=== PATIENT | male | born 1955 | race Caucasian/White ===

== ENCOUNTER 2018-09-19 19:01 | Inpatient (IN) ==
[2018-09-19 19:32] LABS: Basophils # 0.1 K/mcL (0.0-0.2); Basophils % 0.5 %; Eosinophils # 0.3 K/mcL (0.0-0.6); Eosinophils % 2.4 %; Hematocrit 51.6 % (37.5-50.1); Immature Granulocytes % 0.8 % (0-4); Lymphocytes # 1.5 K/mcL (0.6-4.6); Lymphocytes % 13.6 %; Mean Corpuscular HGB Conc 32.9 g/dL (31.6-35.5); Mean Corpuscular Hemoglobin 29.4 pg (28.0-33.3); Mean Corpuscular Volume 89.3 fL (83.0-100.0); Mean Platelet Volume 10.9 fL (9.4-12.4); Monocytes # 0.8 K/mcL (0.0-1.3); Monocytes % 7.1 %; Neutrophils # 8.2 K/mcL (1.6-8.9); Platelet Count 177 K/mcL (140-400); Red Blood Count 5.78 M/mcL (4.19-5.50); Red Cell Distribution Width 13.6 % (11.5-14.5); Segmented Neutrophils % 75.6 %
[2018-09-19 19:40] LABS: Prothrombin Time 22.9 Seconds (9.4-12.1)
[2018-09-19 19:43] LABS: Activated Partial Thrombo Time 42.5 Seconds (26.0-36.0)
[2018-09-19 19:52] LABS: Troponin I 0.03 ng/mL (< 0.04)
[2018-09-19 19:53] LABS: BUN/Creatinine Ratio 18 (6-26); Blood Urea Nitrogen 23 mg/dL (8-23); Calcium 8.9 mg/dL (8.6-10.3); Carbon Dioxide 30 mEq/L (23-29); Chloride 105 mEq/L (98-107); Glucose 127 mg/dL (70-105); Osmolality,Calculated 299 (280-300); Potassium 4.5 mEq/L (3.5-5.1); Sodium 142 mEq/L (136-145); eGFR For Non-African Americans 56 (> 60)
--- NOTE | 2018-09-19 20:06 | Emergency Department Note ---
Disposition Clinical Impression: Atrial fibrillation with RVR, Dehydration Acute on chronic congestive heart failure Qualifiers: Heart failure type: unspecified Qualified Code(s): I50.9 - Heart failure, unspecified Disposition: Admitted As Inpatient Condition: Fair Time of Disposition: 20:19 SOB HPI - General Chief Complaint: ED Shortness of Breath/Dyspnea Stated Complaint: arrythmia Time Seen by Provider: 09/19/18 19:11 Source: patient, EMS Mode of arrival: EMS Limitations: no limitations Nursing Notes Reviewed: Yes Vital Signs Reviewed: Yes - History of Present Illness Patient presents to the ED via EMS and was seen and evaluated upon arrival. Patient states that he has been more short of breath than usual lately. He called EMS because it was worse today than usual. States that he has a history of A. fib. He states that was several years ago. He does state he is on Coumadin, but he does not know why. He is unsure of any of his other medications. Denies any fever or chills recently. No cough. Denies any chest pain but states he has had some palpitations which makes his chest hurt. He has no abdominal pain, nausea, vomiting or diarrhea. No rashes. No pain or swelling in his legs. Patient also has a history of congestive heart failure. He also states he had a heart attack several years ago, but denies any stents. - Related Data Home Medications Medication Instructions Recorded Confirmed Furosemide [Lasix] 20 mg PO BID 09/19/18 09/19/18 Losartan Potassium [Cozaar] 50 mg PO DAILY 09/19/18 09/19/18 Metoprolol [Lopressor] 25 mg PO DAILY 09/19/18 09/19/18 RX: Terazosin HCl 2 mg PO DAILY 09/19/18 09/19/18 Tamsulosin HCl [Flomax] 0.4 mg PO DAILY 09/19/18 09/19/18 Warfarin [Coumadin] 5 mg PO 09/19/18 dilTIAZem HCl [Diltiazem 24Hr Cd] 120 mg PO DAILY 09/19/18 09/19/18 Allergies Allergy/AdvReac Type Severity Reaction Status Date / Time No Known Allergies Allergy Verified 11/29/15 11:10 Review of Systems: As reviewed in the HPI. All other systems reviewed are negative or normal. Past Medical History - Past Medical History Attestation: Yes The following information was validated with the patient. Source: patient Medical history: Reports: atrial fibrillation, CHF, hypertension Psychiatric history: Reports: no psych history - Social History Smoking Status: Never smoker Smokeless Tobacco Status: No Alcohol use: Reports: none Drug use: Reports: none Physical Exam CONSTITUTIONAL: [well appearing, alert and in mild respiratory distress, morbidly obese] EYES: [EOMI, clear conjunctiva, PERRLA] HENT: [Normocephalic, atraumatic, moist mucus membranes, normal oropharynx] NECK: [normal inspection, full ROM, trachea midline, no obvious swelling] PULMONARY: [Decreased breath sounds bilateral bases, secondary to body habitus, no wheezes, trace Rales CARDIOVASCULAR: [A. fib with RVR in the 130s, normal heart sounds, no murmurs, distal extremities are warm and well perfused] GASTROINSTESTINAL: [soft, non-tender, non-rigid, very distended, but is baseline for patient, and he is obese, no guarding, no rebound, normal bowel sounds] GENITOURINARY/RECTAL: [deferred] NEUROLOGIC: [Alert, oriented x3, normal speech, moves all extremities] EXTREMITIES: [Normal inspection, full ROM, no tenderness, no pedal edema, normal capillary refill] MUSCULOSKELETAL: [no gross deformities, atraumatic] SKIN: [No cyanosis, no diaphoresis, normal color, warm, no rash] PSYCHIATRIC: [normal mood and affect] - General Limitations: no limitations General appearance: alert Course Course Narrative: Patient presenting with A. fib with RVR. Somewhat of a poor historian. After medical record review does appear he has had A. fib in the past. Is on Coumadin for A. fib and is also on sotalol. Unclear if he is taking that. We will give him a Cardizem bolus and started him on a drip. States he had an ultrasound with no evidence of low EF. Vital Signs Temperature 97.8 F 09/19/18 19:04 Pulse Rate 139 09/19/18 19:04 Respiratory Rate 30 09/19/18 19:04 Blood Pressure 152/133 09/19/18 19:04 O2 Sat by Pulse Oximetry 99 09/19/18 19:04 Temperature 97.8 F 09/19/18 19:04 Pulse Rate 115 09/19/18 20:12 Respiratory Rate 19 09/19/18 20:12 Blood Pressure 141/100 09/19/18 20:12 O2 Sat by Pulse Oximetry 97 09/19/18 20:12 Oxygen Delivery Oxygen Delivery Nasal Cannula Shortness of Breath/Dyspnea - Medical Records Medical records reviewed: Yes I reviewed the patient's medical records. - Lab Data Lab results reviewed: Yes I reviewed the patient's lab results. Result diagrams: 09/19/18 19:19 09/19/18 19:19 Lab Results 09/19/18 09/19/18 09/19/18 Range/Units 19:19 19:19 19:19 WBC 10.9 (4.3-11.1) K/mcL RBC 5.78 H (4.19-5.50) M/mcL Hgb 17.0 H (12.9-16.9) g/dL Hct 51.6 H (37.5-50.1) % MCV 89.3 (83.0-100.0) fL MCH 29.4 (28.0-33.3) pg MCHC 32.9 (31.6-35.5) g/dL RDW 13.6 (11.5-14.5) % Plt Count 177 (140-400) K/mcL MPV 10.9 (9.4-12.4) fL Immature Gran % 0.8 (0-4) % Seg Neutrophils % 75.6 % Lymphocytes % 13.6 % Monocytes % 7.1 % Eosinophils % 2.4 % Basophils % 0.5 % Neutrophils # 8.2 (1.6-8.9) K/mcL Lymphocytes # 1.5 (0.6-4.6) K/mcL Monocytes # 0.8 (0.0-1.3) K/mcL Eosinophils # 0.3 (0.0-0.6) K/mcL Basophils # 0.1 (0.0-0.2) K/mcL PT 22.9 H (9.4-12.1) Seconds INR 2.0 APTT 42.5 H (26.0-36.0) Seconds Sodium 142 (136-145) mEq/L Potassium 4.5 (3.5-5.1) mEq/L Chloride 105 (98-107) mEq/L Carbon Dioxide 30 H (23-29) mEq/L BUN 23 (8-23) mg/dL Creatinine 1.31 H (0.70-1.30) mg/dL Est GFR ( Amer) > 60 (> 60) Est GFR (Non-Af Amer) 56 L (> 60) BUN/Creatinine Ratio 18 (6-26) Glucose 127 H (70-105) mg/dL Calculated Osmolality 299 (280-300) Calcium 8.9 (8.6-10.3) mg/dL Magnesium (1.6-2.6) mg/dL Troponin I 0.03 (< 0.04) ng/mL B-Natriuretic Peptide (Less than 100) pg/mL TSH 3.160 (0.340-5.600) mcIU/mL 09/19/18 09/19/18 Range/Units 19:19 19:19 WBC (4.3-11.1) K/mcL RBC (4.19-5.50) M/mcL Hgb (12.9-16.9) g/dL Hct (37.5-50.1) % MCV (83.0-100.0) fL MCH (28.0-33.3) pg MCHC (31.6-35.5) g/dL RDW (11.5-14.5) % Plt Count (140-400) K/mcL MPV (9.4-12.4) fL Immature Gran % (0-4) % Seg Neutrophils % % Lymphocytes % % Monocytes % % Eosinophils % % Basophils % % Neutrophils # (1.6-8.9) K/mcL Lymphocytes # (0.6-4.6) K/mcL Monocytes # (0.0-1.3) K/mcL Eosinophils # (0.0-0.6) K/mcL Basophils # (0.0-0.2) K/mcL PT (9.4-12.1) Seconds INR APTT (26.0-36.0) Seconds Sodium (136-145) mEq/L Potassium (3.5-5.1) mEq/L Chloride (98-107) mEq/L Carbon Dioxide (23-29) mEq/L BUN (8-23) mg/dL Creatinine (0.70-1.30) mg/dL Est GFR ( Amer) (> 60) Est GFR (Non-Af Amer) (> 60) BUN/Creatinine Ratio (6-26) Glucose (70-105) mg/dL Calculated Osmolality (280-300) Calcium (8.6-10.3) mg/dL Magnesium 2.1 (1.6-2.6) mg/dL Troponin I (< 0.04) ng/mL B-Natriuretic Peptide 295 H (Less than 100) pg/mL TSH (0.340-5.600) mcIU/mL - Radiology Data Radiology results reviewed: Yes I reviewed the patient's radiology results. - EKG Data EKG attestation: Yes I reviewed and interpreted this EKG. EKG results narrative: A. fib with RVR, rate 1:15, right axis deviation, no acute ischemic changes Critical Care Time Critical Care Time: Yes Total Critical Care Time: 35 Attestation: I personally spent ___35___ minutes devoted to the care of this critically ill patient. This time excludes the time for billable procedures. Attestation Statement - Attestation Attestation: Resident Attestation: I examined this patient and my medical decision making was reviewed with the Resident Physician. I agree with the documented findings, disposition and treatment plan as described except to the extent set forth below. We independently had [id number] contact with the patient. Resident physician Miguelangel Bhat. Please see resident note for further details and disposition. Patient presents to emergency department today for evaluation of shortness of breath. Has a history of atrial fibrillation. Initial heart rate in the 140s and 150s. He is on Coumadin for A. fib that had previously been diagnosed. He does have bilateral swelling of the legs with +2 pitting edema through the calf. Heart rate irregular rate and rhythm. Lungs clear to auscultation bilaterally. Patient is not on any sort of rate control at this time. EKG does not show any significant ST elevations or depressions. Patient states he has not had any history of CHF. He will undergo further rate control as well as lab workup. Patient will likely require admission for atrial fibrillation and RVR.
[2018-09-19 20:15] LABS: Bilirubin,Urine Negative (Negative); Blood,Urine Negative (Negative); Clarity,Urine Clear (Clear); Color,Urine Yellow (Yellow); Glucose,Urine (UA) Normal (Normal); Ketones,Urine Negative (Negative); Leukocyte Esterase,Urine Negative (Negative); Nitrite,Urine Negative (Negative); PH,Urine 5.5 pH Units (5.0-8.0); Protein,Urine 100 mg/dL (Neg-Trace); Specific Gravity,Urine 1.023 (1.010-1.025); Urobilinogen,Urine Normal (Normal)
[2018-09-19 20:20] LABS: Bacteria,Urine None Seen per hpf (None-Few); Hyaline Casts,Urine None Seen per lpf (None-Few); RBC,Urine 0-3 per hpf (0-3); Squamous Epithelial Cell,Urine Few per lpf (None-Few); WBC,Urine 0-3 per hpf (0-3)
[2018-09-19] MEDS ORDERED: Furosemide 40 MG/4 ML VIAL IVP ONE (20:44)
[2018-09-19] MEDS ORDERED: Furosemide 20 MG TABLET PO SCH (21:00)
--- NOTE | 2018-09-19 21:19 | Internal Med History&Physical ---
Date of Encounter: 09/19/18 Time of Encounter: 21:17 Internal Medicine - H&P: HPI Chief complaint: shortness of breath Admitted From: Home Plans for Post Hospital Care: Home History of present illness: Elvis Limon is a 62 year old obese man with a history of BPH, hypertension, atrial fibrillation and heart failure who presents to the ER complaining of increasing shortness of breath that has been intermittently present for months but notably worsened today. He denies accompanying chest pain but reports increasing leg swelling and difficulty laying supine. He says he lives alone at home and care for himself without assistance. On arrival to the ER he was found to be in afib in RVR and was started in IV diltiazem which has controlled his rate to a modest degree. He is now admitted for further care. He reports feeling comfortable at this time and has no complaints. Past Med Surg Social Fam HX - Past Medical History Medical history: atrial fibrillation, CHF, hypertension Psychiatric history: no psych history - Past Surgical History Surgical History: no surgical history - Social History Smoking Status: Never smoker Smokeless Tobacco Status: No Alcohol use: none Drug use: none Internal Medicine - H&P: Meds Furosemide [Lasix] 20 mg PO BID 09/19/18 [History] Losartan Potassium [Cozaar] 50 mg PO DAILY 09/19/18 [History] Metoprolol [Lopressor] 25 mg PO DAILY 09/19/18 [History] Tamsulosin HCl [Flomax] 0.4 mg PO DAILY 09/19/18 [History] Terazosin HCl 2 mg PO DAILY 09/19/18 [History] Warfarin [Coumadin] 5 mg PO 09/19/18 [History] dilTIAZem HCl [Diltiazem 24Hr Cd] 120 mg PO DAILY 09/19/18 [History] Allergy/AdvReac Type Severity Reaction Status Date / Time No Known Allergies Allergy Verified 11/29/15 11:10 All Systems PM: A 10-system review of systems was performed and is negative for pertinent findings except as documented above in the HPI. Family history obtained and found noncontributory. - Constitutional Vitals: Temp Pulse Resp BP Pulse Ox 97.8 F 118 21 144/93 96 09/19/18 19:04 09/19/18 20:37 09/19/18 20:37 09/19/18 20:37 09/19/18 20:37 Exam: Vitals: Reviewed General: Obese white man sitting up in bed in NAD, conversant. Skin: Warm and supple. HEENT: Moist mucous membranes. No conjunctivae pallor. Neck: No lymphadenopathy. No JVD. No carotid bruits. No palpable thyroid. Chest: Diminished thoracic expansion with reduced breath sounds bilaterally. Heart: Irregularly irregular. Abdomen: Distended but soft and non-tender to palpation. Extremities: 2+ pitting edema. No calf tenderness Neurological: Awake, alert and oriented to person, place and time. No focal deficits. Psych: Affect appropriate. Internal Med - H&P Results - Labs CBC & Chem 7: 09/19/18 19:19 09/19/18 19:19 Labs: Short CBC 09/19/18 Range/Units 19:19 WBC 10.9 (4.3-11.1) K/mcL Hgb 17.0 H (12.9-16.9) g/dL Hct 51.6 H (37.5-50.1) % Plt Count 177 (140-400) K/mcL Neutrophils # 8.2 (1.6-8.9) K/mcL BMP 09/19/18 19:19 Sodium 142 Potassium 4.5 Chloride 105 Carbon Dioxide 30 H BUN 23 Creatinine 1.31 H Glucose 127 H Calcium 8.9 Cardiac Enzymes 09/19/18 Range/Units 19:19 Troponin I 0.03 (< 0.04) ng/mL Urine 09/19/18 Range/Units 20:01 Urine Color Yellow (Yellow) Urine Clarity Clear (Clear) Urine pH 5.5 (5.0-8.0) pH Units Ur Specific [place] 1.023 (1.010-1.025) Urine Protein 100 H (Neg-Trace) mg/dL Urine Glucose (UA) Normal (Normal) mg/dL - Impressions ITS Impressions Chest X-Ray 09/19/18 19:12 IMPRESSION: No acute process. Stable cardiac D/ / Kyle Desai MD / Kyle Desai MD Interpreting Provider: Kyle Desai MD - Assessment and plan (1) Atrial fibrillation with RVR Current Visit: Yes Status: Acute Assessment and plan: Will continue diltiazem drip until well controlled and resume oral agents. Prakash stokes takes 25mg metoprolol tartrate once a day at home. Will place on 50mg succinate due to possible compounding heart failure and for better rate control. INR is therapeutic therefore will continue his current dose. (2) Acute on chronic congestive heart failure Current Visit: Yes Status: Acute Assessment and plan: The patient's orthopnea, shortness of breath and increasing edema is concerning for a heart failure state likely triggered by the tachyarrythmia. Will give a dose of 40mg furosemide tonight and continue with 20mg BID tomorrow. Obtain an echo. Control heart rate. Continue BB/ARB. Qualifiers: Heart failure type: unspecified Qualified Code(s): I50.9 - Heart failure, unspecified (3) Hypertension Current Visit: Yes Status: Acute Assessment and plan: Will resume home meds. Qualifiers: Hypertension type: essential hypertension Qualified Code(s): I10 - Essent ial (primary) hypertension (4) BPH (benign prostatic hyperplasia) Current Visit: Yes Status: Acute Assessment and plan: Will continue tamsulosin and terazosin. Qualifiers: Lower urinary tract symptom presence: unspecified whether lower urinary tract symptoms present Qualified Code(s): N40.0 - Benign prostatic hyperplasia without lower urinary tract symptoms - Time Spent With Patient Total time spent is greater than 50% in coordination of care (as documented) at patient's floor/unit and/or counseling patient: Greater than 35 minutes
[2018-09-19] MEDS ORDERED: *HR* Warfarin 2.5 MG TABLET PO ONE (23:00)
[2018-09-20 05:15] LABS: Basophils # 0.1 K/mcL (0.0-0.2); Basophils % 0.6 %; Eosinophils # 0.3 K/mcL (0.0-0.6); Eosinophils % 2.3 %; Hematocrit 52.7 % (37.5-50.1); Hemoglobin 17.5 g/dL (12.9-16.9); Immature Granulocytes % 0.9 % (0-4); Lymphocytes # 1.4 K/mcL (0.6-4.6); Lymphocytes % 12.9 %; Mean Corpuscular HGB Conc 33.2 g/dL (31.6-35.5); Mean Corpuscular Hemoglobin 29.8 pg (28.0-33.3); Mean Corpuscular Volume 89.8 fL (83.0-100.0); Mean Platelet Volume 10.9 fL (9.4-12.4); Monocytes # 0.8 K/mcL (0.0-1.3); Monocytes % 7.4 %; Neutrophils # 8.1 K/mcL (1.6-8.9); Platelet Count 173 K/mcL (140-400); Red Blood Count 5.87 M/mcL (4.19-5.50); Red Cell Distribution Width 13.6 % (11.5-14.5); Segmented Neutrophils % 75.9 %
[2018-09-20 05:23] LABS: Prothrombin Time 22.5 Seconds (9.4-12.1)
[2018-09-20 05:36] LABS: BUN/Creatinine Ratio 17 (6-26); Blood Urea Nitrogen 23 mg/dL (8-23); Calcium 8.7 mg/dL (8.6-10.3); Carbon Dioxide 27 mEq/L (23-29); Chloride 105 mEq/L (98-107); Cholesterol 163 mg/dL (< 200); Glucose 146 mg/dL (70-105); HDL Cholesterol 27 mg/dL (40-59); LDL Cholesterol,Calculated 101 mg/dL (0-99); Osmolality,Calculated 298 (280-300); Potassium 4.1 mEq/L (3.5-5.1); Sodium 141 mEq/L (136-145); Triglycerides 174 mg/dL (< 150); eGFR For Non-African Americans 53 (> 60)
[2018-09-20] MEDS: Furosemide 20 MG/2 ML VIAL IVP SCH ×2 (08:52→17:07)
[2018-09-20] MEDS ORDERED: Metoprolol XL (24 HR) Succ 50 MG TAB.ER.24H PO SCH ×2 (09:00)
[2018-09-20] MEDS ORDERED: Diltiazem CD (24hr) 120 MG CAPSULE PO SCH (09:00)
[2018-09-20 09:27] LABS: Estimated Average Glucose 174 mg/dl; Hemoglobin A1C 7.7 %
[2018-09-20] MEDS ORDERED: Dextrose Gel 15 GM/37.5 ML TUBE PO PRN ×2 (12:14)
[2018-09-20] MEDS ORDERED: *HR* Dextrose 50 % in Water (Syg) 50 ML SYRINGE IVP PRN (12:14)
[2018-09-20] MEDS ORDERED: D5% in Water 1,000 ML IVC PRN (12:14)
--- NOTE | 2018-09-20 12:22 | Internal Med Progress Note ---
Hospitalist Progress Note - Encounter Date of Encounter: 09/20/18 Time of Encounter: 12:18 - Subjective Interval History: I have seen and evaluated the patient at bedside. He reports that his shortness of breath has improved, but he is still requiring oxygen by nasal cannula. reports that his SOB started suddenly. denies chest pain, nausea or vomiting. reports that his stomach has been getting swollen over the past couple of days. - Exam Vitals: Temp Pulse Resp BP Pulse Ox 97.5 F L 94 17 129/76 94 09/20/18 04:21 09/20/18 07:56 09/20/18 04:21 09/20/18 07:56 09/20/18 07:56 Exam: Vitals: reviewed. General: Morbid obese, Alert and oriented x4. In mild distress due to shortness of breath. improved when compared to yesterday. Skin: Normal color, no rash, no lesions. HEENT: EOM, pupils equal, round and reactive. Cardiovascular: Irregularly irregular, Normal S1 & S2, no rubs, murmurs or gallops. JVD unable to assess due to short neck. Lungs: Decreased chest expansion, no wheezes or crackles. Abdomen: Obese Soft, non-tender, no rigidity. Extremities: 2+ pitting edema in the lower extremity bilaterally. Neurological: Normal cognition and motor skills. Rest of the physical exam is non contributory - Assessment and Plan (1) Atrial fibrillation with RVR Current Visit: Yes Status: Acute Assessment and Plan: Rate better controlled. Patient still on cardizem drip Plan Continue Cardizem drip On warfarin pharmacy dosing, INR therapeutic Continue the diltiazem 120 mg by mouth daily Increase metoprolol 200 mg by mouth daily. Cardiology consult. Trops (2) Acute on chronic congestive heart failure Current Visit: Yes Status: Acute Assessment and Plan: Non-specify CHF-type. 2+ pitting edema in the lower extremities. Plan: To continue gentle IV diruresis with furosemide 20mg/IV twice a day strict intake and output water restriction to 1.5 litters a day. daily weight 2 gram sodium diet ACEs has been held due to BRIJESH/CKD Continue Metoprolol 100mg/PO daily. TTE to have baseline EF and to eval for valvular or structural abnormalities Patient requiring O2 by nasal cannula for O2Sat >92%. PE unlikely as patient has been on a oral anticoagulant with a therapeutic INR. (3) BPH (benign prostatic hyperplasia) Current Visit: Yes Status: Chronic Assessment and Plan: Continue statin subluxing 0.4 mg by mouth daily. (4) Hypertension Current Visit: Yes Status: Chronic Assessment and Plan: Blood pressure is well controlled. Patient is on Cardizem 120 mg by mouth daily, and metoprolol. (5) Diabetes Current Visit: Yes Status: Chronic Assessment and Plan: A1C 7.7 Plan Carb controlled diet started on Lipro medium dose sliding scale. Will monitor (6) CKD (chronic kidney disease) Current Visit: Yes Status: Chronic Assessment and Plan: Will hold losartan. avoid nephrotoxic mediations. DVT Prophylaxis: Patient on Warfarin due to A.fib. - Summary of Assessment and Plan Summary of Assessment and Plan: Patient to remain in the hospital due to A.Fib with RvR on a cardizem drip. - Time Spent with Patient Total time spent is greater than 50% in coordination of care (as documented) at patient's floor/unit and/or counseling patient: Greater than 35 minutes (38) Plan of Care Discussed with: patient (and the nurse.) Internal Medicine: Result - Labs CBC & Chem 7: 09/20/18 04:46 09/20/18 04:46 Labs: Short CBC 09/19/18 09/20/18 Range/Units 19:19 04:46 WBC 10.9 10.7 (4.3-11.1) K/mcL Hgb 17.0 H 17.5 H (12.9-16.9) g/dL Hct 51.6 H 52.7 H (37.5-50.1) % Plt Count 177 173 (140-400) K/mcL Neutrophils # 8.2 8.1 (1.6-8.9) K/mcL BMP 09/19/18 09/20/18 19:19 04:46 Sodium 142 141 Potassium 4.5 4.1 Chloride 105 105 Carbon Dioxide 30 H 27 BUN 23 23 Creatinine 1.31 H 1.37 H Glucose 127 H 146 H Calcium 8.9 8.7 Cardiac Enzymes 09/19/18 Range/Units 19:19 Troponin I 0.03 (< 0.04) ng/mL Urine 09/19/18 Range/Units 20:01 Urine Color Yellow (Yellow) Urine Clarity Clear (Clear) Urine pH 5.5 (5.0-8.0) pH Units Ur Specific [place] 1.023 (1.010-1.025) Urine Protein 100 H (Neg-Trace) mg/dL Urine Glucose (UA) Normal (Normal) mg/dL - ABG Interpretation ABG results: PT/INR, D-dimer PT 22.5 Seconds (9.4-12.1) H 09/20/18 04:46 - Impressions Impressions Chest X-Ray 09/19/18 19:12 IMPRESSION: No acute process. Stable cardiac D/ / Kyle Desai MD / Kyle Desai MD Interpreting Provider: Kyle Desai MD Consult Discharge Plan - Plan (2) Acute on chronic congestive heart failure Qualifiers: Heart failure type: unspecified Qualified Code(s): I50.9 - Heart failure, unspecified (3) BPH (benign prostatic hyperplasia) Qualifiers: Lower urinary tract symptom presence: unspecified whether lower urinary tract symptoms present Qualified Code(s): N40.0 - Benign prostatic hyperplasia without lower urinary tract symptoms (4) Hypertension Qualifiers: Hypertension type: essential hypertension Qualified Code(s): I10 - Essential (primary) hypertension (5) Diabetes Qualifiers: Diabetes mellitus type: type 2 Diabetes mellitus senior care insulin use: unspecified senior care insulin use status Diabetes mellitus complication status: with unspecified complications Qualified Code(s): E11.8 - Type 2 diabetes mellitus with unspecified complications (6) CKD (chronic kidney disease) Qualifiers: Chronic kidney disease stage: stage 3 (moderate) Qualified Code(s): N18.3 - Chronic kidney disease, stage 3 (moderate)
--- NOTE | 2018-09-20 14:40 | Cardiology Consult Note ---
<Dg Sheriff R - Last Filed: 09/20/18 14:37> Date of Encounter: 09/20/18 Time of Encounter: 14:37 Assessment and Plan (1) Atrial fibrillation with RVR Current Visit: Yes Status: Acute Known hx of A-Fib diagnosed in 2014 at [facility]. Home meds included Cardizem CD 120mg daily and Lopressor 25mg BID. Presented A-Fib RVR. Currently on Toprol XL 100mg daily and Cardizem gtt at 12.5mg/hr. 12 hr tele AVG HR 109, A-Fib. Anticipate HR will improve as he is diuresed. Continue Cardizem gtt. If rate controlled tomorrow, will transition to PO. Anticoagulated on Coumadin, INR 2.0. K, Mag, TSH WNL. Will recommend outpt sleep study. Continue to follow. (2) Acute on chronic congestive heart failure Current Visit: Yes Status: Acute CC of worsening dyspnea, BLE edema and orthopnea over the past 6-8 weeks. Significant fluid overload on exam. BNP 295, CXR no acute findings. Reviewed [facility] records from 2014. TTE 09/2015 EF 55% and nuclear stress test at that time was negative for ischemia or infarct. Suspect diastolic CHF exacerbation. Recheck TTE to evaluate structure and function. Currently on IV Lasix 20mg BID. Creatinine 1.37. Recommend strict I/Os, Na and fluid restriction, daily weights. Qualifiers: Heart failure type: diastolic Qualified Code(s): I50.33 - Acute on chronic diastolic (congestive) heart failure Discussion w patient/family: The assessment and plan as outlined above was discussed with the patient and/or family members who expressed understanding and agreement. All questions were answered. Thank you for involving us in the care of your patient. Please call with any questions. I will discuss all the above with Dr. Zavala and make changes as necessary. History of Present Illness Consult date: 09/20/18 Consult reason: CHF, A-Fib RVR Chief complaint: dyspnea History of present illness: Mr. Limon is a 62 year old male with PMH of BPH, HTN, atrial fibrillation anticoagulated on Coumadin and diastolic CHF who presents to the ER complaining of increasing shortness of breath that has been progressing over the past 6-8 weeks. He reports worsening BLE edema and orthopnea. He denies chest pain. He says he lives alone at home and cares for himself without assistance. On arrival to the ER he was found to be in afib in RVR and was started on IV Cardizem gtt--currently 12.5mg/hr. Troponin negative x 2. CXR no acute findings, BNP 295. Cardiology consulted for further recs. Reviewed [facility] records in [facility]. TTE 09/21/15 at [facility] EF 55%. Mild biatrial enlargement. Nuclear stress test 09/26/15 at [facility] negative for ischemia or infarct. Past Med Surg Social Fam HX - Past Medical History Medical history: atrial fibrillation, CHF, hypertension Psychiatric history: no psych history - Past Surgical History Surgical History: no surgical history - Social History Smoking Status: Never smoker Smokeless Tobacco Status: No Alcohol use: none Drug use: none - Family History Mother Name: Caity Limon Age: 82 Living Status: Still Living Hx Family Cardiac Disorders: No Hx Family Respiratory Disorders: No Hx Family Endocrine Disorder: Yes (dm) Medications and Allergies Furosemide [Lasix] 20 mg PO BID 09/19/18 [History] Metoprolol [Lopressor] 25 mg PO DAILY 09/19/18 [History] Tamsulosin HCl [Flomax] 0.4 mg PO DAILY 09/19/18 [History] Terazosin HCl 2 mg PO DAILY 09/19/18 [History] Warfarin [Coumadin] 7.5 mg PO MOTUWETHFR 09/19/18 [History] dilTIAZem HCl [Diltiazem 24Hr Cd] 120 mg PO DAILY 09/19/18 [History] Amlodipine Besylate 10 mg PO DAILY 09/20/18 [History] Aspirin [Lo-Dose Aspirin EC] 81 mg PO DAILY 09/20/18 [History] Lisinopril [Zestril] 20 mg PO DAILY 09/20/18 [History] Spironolactone [Aldactone] 25 mg PO BID 09/20/18 [History] Warfarin [Coumadin] 5 mg PO SUSA 09/20/18 [History] Allergy/AdvReac Type Severity Reaction Status Date / Time No Known Allergies Allergy Verified 11/29/15 11:10 All Systems Review: The remainder of the systems were reviewed and are negative - Cardiovascular Cardiovascular: as per HPI, dyspnea at rest, dyspnea on exertion, leg edema, orthopnea - Respiratory Respiratory: dyspnea Physical Examination Vital Signs, Last 4 Hours BP Pulse Ox 09/20/18 12:40 148/70 93 Vital Signs Temp Pulse Resp BP Pulse Ox 09/20/18 12:40 148/70 93 09/20/18 07:56 94 129/76 94 09/20/18 04:21 97.5 F L 112 17 120/96 96 09/20/18 00:16 97.8 F 102 17 141/70 92 09/19/18 21:42 98.7 F 104 19 138/87 97 09/19/18 21:22 18 143/90 09/19/18 20:37 118 21 144/93 96 09/19/18 20:12 115 19 141/100 97 09/19/18 19:40 110 16 155/112 97 09/19/18 19:30 98 09/19/18 19:04 97.8 F 139 30 152/133 99 Intake and Output 09/19/18 09/20/18 09/20/18 23:59 07:59 15:59 Intake Total 2.9 / 2.9 217.1 / 217.1 530 / 530 Balance 2.9 / 2.9 217.1 / 217.1 530 / 530 Intake: IV Fluids 2.9 / 2.9 97.1 / 97.1 50 / 50 Cardizem 50 MG In 0.9 % Sodium 2.9 / 2.9 97.1 / 97.1 50 / 50 Chloride 40 ML @ 5 MG/HR 5 mls/ hr IVC .Q10H [facility] Rx#:[id number] Oral 0 / 0 120 / 120 480 / 480 Other: Meal Lunch Percent of Meal Consumed 75% # Voids 1 1 # Urine Diapers 1 Weight 179.4 kg 179.4 kg Patient Weight 09/20/18 23:59 Weight 179.4 kg General: Conversant, No Apparent Distress HEENT: Atraumatic, Normocephaly, Mucus Membranes Moist Neck: Normal carotid pulses Cardiac: Other (irregularly irregular) Lungs: Other (diminished) Neuro: Alert and responsive, No focal deficits noted Abdomen: Soft, Non-Tender Skin: No rashes noted on visualized skin Musculoskeletal: No Chest Wall Tenderness Extremities: Other (2+ BLE edema) Results 09/20/18 04:46 09/20/18 04:46 Lab Results 1109/19/18 09/19/18 19:19 19:19 19:19 WBC 10.9 Hgb 17.0 H Hct 51.6 H Plt Count 177 INR 2.0 APTT 42.5 H Sodium 142 Potassium 4.5 Chloride 105 Carbon Dioxide 30 H BUN 23 Creatinine 1.31 H Glucose 127 H Calcium 8.9 Magnesium Troponin I 0.03 B-Natriuretic Peptide TSH 3.160 09/19/18 09/19/18 09/20/18 19:19 19:19 04:46 WBC 10.7 Hgb 17.5 H Hct 52.7 H Plt Count 173 INR APTT Sodium Potassium Chloride Carbon Dioxide BUN Creatinine Glucose Calcium Magnesium 2.1 Troponin I B-Natriuretic Peptide 295 H TSH 09/20/18 09/20/18 09/20/18 04:46 04:46 12:36 WBC Hgb Hct Plt Count INR 2.0 APTT Sodium 141 Potassium 4.1 Chloride 105 Carbon Dioxide 27 BUN 23 Creatinine 1.37 H Glucose 146 H Calcium 8.7 Magnesium Troponin I < 0.03 B-Natriuretic Peptide TSH Short CBC 09/20/18 09/19/18 Range/Units 04:46 19:19 WBC 10.7 10.9 (4.3-11.1) K/mcL Hgb 17.5 H 17.0 H (12.9-16.9) g/dL Hct 52.7 H 51.6 H (37.5-50.1) % Plt Count 173 177 (140-400) K/mcL Neutrophils # 8.1 8.2 (1.6-8.9) K/mcL BMP 09/20/18 09/19/18 Range/Units 04:46 19:19 Sodium 141 142 (136-145) mEq/L Potassium 4.1 4.5 (3.5-5.1) mEq/L Chloride 105 105 (98-107) mEq/L Carbon Dioxide 27 30 H (23-29) mEq/L BUN 23 23 (8-23) mg/dL Creatinine 1.37 H 1.31 H (0.70-1.30) mg/dL Glucose 146 H 127 H (70-105) mg/dL Calcium 8.7 8.9 (8.6-10.3) mg/dL Cardiac Enzymes 09/20/18 09/19/18 Range/Units 12:36 19:19 Troponin I < 0.03 0.03 (< 0.04) ng/mL Urine 09/19/18 Range/Units 20:01 Urine Color Yellow (Yellow) Urine Clarity Clear (Clear) Urine pH 5.5 (5.0-8.0) pH Units Ur Specific [place] 1.023 (1.010-1.025) Urine Protein 100 H (Neg-Trace) mg/dL Urine Glucose (UA) Normal (Normal) mg/dL Impressions Chest X-Ray 09/19/18 19:12 IMPRESSION: No acute process. Stable cardiac D/ / Kyle Desai MD / Kyle Desai MD Interpreting Provider: Kyle Desai MD Active Medications Dextrose/Water (Dextrose 50% (Syg)) 25 ml IVP AD PRN PRN Reason: Hypoglycemia Stop: 03/22/19 12:15 Diltiazem HCl (Cardizem Cd) 120 mg PO DAILY JACKY Stop: 03/22/19 09:01 Last Admin: 09/20/18 08:51 Dose: 120 mg Furosemide (Lasix) 20 mg IVP BIDDIURETIC JACKY Stop: 03/22/19 08:01 Last Admin: 09/20/18 08:52 Dose: 20 mg Glucagon (Glucagen) 1 mg IM ONCE PRN PRN Reason: Hypoglycemia Stop: 03/22/19 12:15 Glucose (Gluctose) 15 gm PO ONCE PRN PRN Reason: Hypoglycemia Stop: 03/22/19 12:15 Glucose (Gluctose) 30 gm PO ONCE PRN PRN Reason: Hypoglycemia Stop: 03/22/19 12:15 Diltiazem HCl 50 mg/ Sodium (Chloride) 50 mls @ 5 mls/hr IVC .Q10H JACKY Stop: 03/21/19 19:16 Last Admin: 09/20/18 14:54 Dose: 12.5 mg/hr, 12.5 mls/hr Dextrose (Dextrose 5%) 1,000 mls @ 100 mls/hr IVC .Q10H PRN PRN Reason: HYPOGLYCEMIA Stop: 03/22/19 12:15 Insulin Human Lispro (Humalog) 0 units SQ TIDAC [facility]; Protocol Stop: 03/22/19 16:31 Metoprolol Succinate (Toprol Xl) 100 mg PO DAILY [facility] Stop: 03/23/19 09:01 Tamsulosin HCl (Flomax) 0.4 mg PO DAILY [facility]; Protocol Stop: 03/22/19 09:01 Last Admin: 09/20/18 08:51 Dose: 0.4 mg Terazosin HCl (Hytrin) 2 mg PO DAILY [facility] Stop: 03/22/19 09:01 Last Admin: 09/20/18 08:51 Dose: 2 mg Warfarin Sodium (Coumadin Perpt) 1 each PO DAILY@1800 PRN PRN Reason: SEE COMMENTS Stop: 03/22/19 18:01 - Imaging and Cardiology Stress Test: report reviewed Echo: report reviewed - EKG Interpretation EKG results cardiology: personally reviewed (A-Fib RVR), other (12 hr tele AVG HR 109, A-Fib, 3 beat NSVT) Consult Discharge Plan - Plan Referrals: Kvng Hewitt MD [Primary Care Provider] - <Michael Zavala A - Last Filed: 09/20/18 16:37> Date of Encounter: 09/20/18 - Attending Attestation I have personally performed a face to face evaluation on this patient. I have reviewed and agree with the documented findings and care plan as documented by the [employer]. History and Exam by me shows: 62-year-old male with history of A. fib on warfarin and HFpEF on Lasix 20 mg at home presenting with acute CHF exacerbation. TTE 09/2015 EF 55% and nuclear stress test at that time was negative for ischemia or infarct Impression/plan: 1) acute on chronic diastolic CHF exacerbation NYHA class IV, ACC AHA stage C - Continue diuresis with IV Lasix 40 mg , I and Os low-salt fluid restricted diet - Obtain echocardiogram 2) A. fib with RVR - now rate controlled on metoprolol succinate and Cardizem drip. Continue warfarin for anticoagulation. Thanks, Michael Zavala MD Assessment and Plan Discussion w patient/family: The assessment and plan as outlined above was discussed with the patient and/or family members who expressed understanding and agreement. All questions were answered. Thank you for involving us in the care of your patient. Please call with any questions. History of Present Illness History of present illness: Mr. Limon is a 62 year old male All Systems Review: The remainder of the systems were reviewed and are negative Physical Examination Vital Signs, Last 4 Hours Temp Pulse BP Pulse Ox 09/20/18 15:54 98.2 F 88 132/76 94 09/20/18 12:40 148/70 93 Results 09/20/18 04:46 09/20/18 04:46 Lab Results 09/19/18 09/19/18 09/19/18 19:19 19:19 19:19 WBC 10.9 Hgb 17.0 H Hct 51.6 H Plt Count 177 INR 2.0 APTT 42.5 H Sodium 142 Potassium 4.5 Chloride 105 Carbon Dioxide 30 H BUN 23 Creatinine 1.31 H Glucose 127 H Calcium 8.9 Magnesium Troponin I 0.03 B-Natriuretic Peptide TSH 3.160 09/19/18 09/19/18 09/20/18 19:19 19:19 04:46 WBC 10.7 Hgb 17.5 H Hct 52.7 H Plt Count 173 INR APTT Sodium Potassium Chloride Carbon Dioxide BUN Creatinine Glucose Calcium Magnesium 2.1 Troponin I B-Natriuretic Peptide 295 H TSH 09/20/18 09/20/18 09/20/18 04:46 04:46 12:36 WBC Hgb Hct Plt Count INR 2.0 APTT Sodium 141 Potassium 4.1 Chloride 105 Carbon Dioxide 27 BUN 23 Creatinine 1.37 H Glucose 146 H Calcium 8.7 Magnesium Troponin I < 0.03 B-Natriuretic Peptide TSH
[2018-09-20] MEDS: Insulin LISPRO 300 UNITS/3 ML VIAL SQ SCH (17:07)
[2018-09-20] MEDS ORDERED: *HR* Warfarin 7.5 MG TABLET PO ONE (18:00)
[2018-09-20] MEDS ORDERED: Warfarin perPT PO PRN (18:00)
[2018-09-20] MEDS ORDERED: Perflutren Lipid Microsphere 1.3 ML in 0.9 % Sodium Chloride 8.7 ML IVP ONE (18:14)
[2018-09-21 04:22] LABS: Basophils # 0.1 K/mcL (0.0-0.2); Basophils % 0.5 %; Eosinophils # 0.3 K/mcL (0.0-0.6); Eosinophils % 2.2 %; Hematocrit 52.9 % (37.5-50.1); Hemoglobin 17.6 g/dL (12.9-16.9); Immature Granulocytes % 0.9 % (0-4); Lymphocytes # 1.5 K/mcL (0.6-4.6); Lymphocytes % 12.7 %; Mean Corpuscular HGB Conc 33.3 g/dL (31.6-35.5); Mean Corpuscular Hemoglobin 29.9 pg (28.0-33.3); Mean Platelet Volume 11.3 fL (9.4-12.4); Monocytes # 0.8 K/mcL (0.0-1.3); Monocytes % 6.6 %; Platelet Count 175 K/mcL (140-400); Red Blood Count 5.88 M/mcL (4.19-5.50); Red Cell Distribution Width 13.8 % (11.5-14.5); Segmented Neutrophils % 77.1 %
[2018-09-21 04:26] LABS: INR 1.8; Prothrombin Time 19.8 Seconds (9.4-12.1)
[2018-09-21 04:39] LABS: Phosphorous 3.7 mg/dL (2.7-4.5); Potassium 4.2 mEq/L (3.5-5.1)
[2018-09-21] MEDS: Insulin LISPRO 300 UNITS/3 ML VIAL SQ SCH ×3 (07:34→16:57)
[2018-09-21] MEDS: Furosemide 20 MG/2 ML VIAL IVP SCH ×2 (08:48→16:52)
[2018-09-21] MEDS: Metoprolol XL (24 HR) Succ 50 MG TAB.ER.24H PO SCH (08:48)
[2018-09-21] MEDS ORDERED: Diltiazem CD (24hr) 180 MG CAPSULE PO SCH (09:45)
--- NOTE | 2018-09-21 11:54 | Internal Med Progress Note ---
Hospitalist Progress Note - Encounter Date of Encounter: 09/21/18 Time of Encounter: 11:50 - Subjective Interval History: I have seen and evaluated the patient at bedside. states that he is feeling better today, but still voices complains of increase abdominal girth and lower extr edema. denies shortness of breath, palpitations or lightheadedness. - Exam Vitals: Temp Pulse Resp BP Pulse Ox 97.5 F L 98 20 110/89 95 09/21/18 10:54 09/21/18 11:27 09/21/18 10:54 09/21/18 11:27 09/21/18 10:54 Exam: Vitals: Reviewed. General: Morbid obese, No acute distress. Skin: Normal color, no rash, no lesions. HEENT: EOM, pupils equal, round and reactive. Cardiovascular: Irregularly irregular, Normal S1 & S2, no rubs, murmurs or gallops. Lungs: Decreased chest expansion, no wheezes, rales or crackles. Abdomen: Obese Soft, non-tender, no rigidity. NABS in all 4 quadrants. Extremities: 2+ pitting edema in the lower extremity bilaterally. Neurological: Normal cognition. CN II-XII intact. Rest of the physical exam is non contributory - Assessment and Plan (1) Atrial fibrillation with RVR Current Visit: Yes Status: Acute Assessment and Plan: Rate not controlled. Patient is started on a Cardizem drip Cardizem by mouth increased to 180 mg daily Continue metoprolol 100 mg by mouth daily Cardiology recommendation appreciated Anticoagulated with warfarin per pharmacy dosing If repeat INR not therapeutic, will bridge with heparin. Continue telemetry monitory (2) Acute on chronic congestive heart failure Current Visit: Yes Status: Acute Assessment and Plan: Acute on chronic systolic HF. Chest is clear to auscultation. 3+ pitting edema in the lower extremities. total fluid balance positive for 358 mls/hr Plan: To continue gentle IV diruresis with furosemide 20mg/IV twice a day. wont increase furosemide dosage due to worsening kidney function. strict intake and output water restriction to 1.5 litters a day. daily weight 2 gram sodium diet will continue to follow cardiology recommendations Losartan has been held due to BRIJESH Continue Metoprolol 100mg/PO daily. (3) BPH (benign prostatic hyperplasia) Current Visit: Yes Status: Chronic Assessment and Plan: Continue home medication. Patient on tamsulosin 0.4mg PO daily (4) Hypertension Current Visit: Yes Status: Chronic Assessment and Plan: BP well controlled. Patient is no Metoprolol 100mg/PO daily and furosemide 20mg/IV BID. will continue to monitor. (5) Diabetes Current Visit: Yes Status: Chronic Assessment and Plan: Blood sugar is well controlled. Levemir 5 unit at bedtime added Continue lispro medium dose sliding scale before meals (6) CKD (chronic kidney disease) Current Visit: Yes Status: Chronic Assessment and Plan: slight worsening in kidney function due to IV diuresis avoid nephrotoxic medications DVT Prophylaxis: Patient on an oral anticoagulant due to A. fib. - Summary of Assessment and Plan Summary of Assessment and Plan: Patient to remain in the hospital due to A.Fib with RvR on a Cardizem drip. - Time Spent with Patient Total time spent is greater than 50% in coordination of care (as documented) at patient's floor/unit and/or counseling patient: Greater than 35 minutes (40) Plan of Care Discussed with: patient (and the nurse.) Internal Medicine: Result - Labs CBC & Chem 7: 09/21/18 03:56 09/21/18 03:56 Labs: Short CBC 09/21/18 Range/Units 03:56 WBC 11.7 H (4.3-11.1) K/mcL Hgb 17.6 H (12.9-16.9) g/dL Hct 52.9 H (37.5-50.1) % Plt Count 175 (140-400) K/mcL Neutrophils # 9.0 H (1.6-8.9) K/mcL BMP 09/21/18 03:56 Sodium 139 Potassium 4.2 Chloride 105 Carbon Dioxide 27 BUN 28 H Creatinine 1.48 H Glucose 165 H Calcium 9.0 Cardiac Enzymes 09/20/18 Range/Units 12:36 Troponin I < 0.03 (< 0.04) ng/mL - ABG Interpretation ABG results: PT/INR, D-dimer PT 19.8 Seconds (9.4-12.1) H 09/21/18 03:56 - Impressions Impressions Echocardiogram 09/19/18 20:15 Impressions: LVEF 40-45%. Moderate global left ventricular systolic dysfunction. Indeterminate diastolic function. RV not well visualized, grossly normal RV size with mild hypokinesis. Mildly dilated left atrium. No significant valvular dysfunction. Unable to estimate RVSP due to lack of TR jet. Left Ventricular Wall Motion: Rest Echo Findings The apex, apical inferior, mid inferior, basal inferior, apical anterior, mid anterior, basal anterior, apical septal, mid inferior septal, basal inferior septal, apical lateral, mid anterior lateral, basal anterior lateral, mid anterior septal, mid inferior lateral, basal anterior septal and basal inferior lateral ocampo were hypokinetic. Findings: Study Quality * Technically sub-optimal due to poor echocardiographic windows, Afib RVR and body habitus. ECG Findings * Atrial fibrillation, RVR. Left Ventricle * LVEF 40-45%. * Normal LV chamber size and wall thickness. * Moderate global left ventricular systolic dysfunction. * Indeterminate diastolic function. * Definity echo contrast was used. Right Ventricle * RV not well visualized, grossly normal RV size. * Mild right ventricular hypokinesis. Left Atrium * Mildly dilated left atrium. Right Atrium * Normal right atrial size. Interatrial Septum * Interatrial septum not well evaluated. Aortic Valve * Aortic valve not well visualized. * No aortic regurgitation. * No aortic stenosis. Mitral Valve * Normal mitral valve structure and function. * No mitral regurgitation. * No mitral stenosis. Tricuspid Valve * Tricuspid valve not well visualized. * No tricuspid stenosis. * Trace tricuspid regurgitation. * Unable to estimate RVSP due to lack of TR jet. Pulmonic Valve * Pulmonic valve is not well visualized. * No pulmonic regurgitation. * No pulmonic stenosis. Aorta * Normally sized aortic root. Pericardium * The pericardium appears normal. IVC * The IVC is not well evaluated. Consult Discharge Plan - Plan Referrals: Kvng Hewitt MD [Primary Care Provider] - (2) Acute on chronic congestive heart failure Qualifiers: Heart failure type: systolic Qualified Code(s): I50.23 - Acute on chronic systolic (congestive) heart failure (3) BPH (benign prostatic hyperplasia) Qualifiers: Lower urinary tract symptom presence: unspecified whether lower urinary tract symptoms present Qualified Code(s): N40.0 - Benign prostatic hyperplasia without lower urinary tract symptoms (4) Hypertension Qualifiers: Hypertension type: essential hypertension Qualified Code(s): I10 - Essential (primary) hypertension (5) Diabetes Qualifiers: Diabetes mellitus type: type 2 Diabetes mellitus [facility] insulin use: unspecified medical terminologist insulin use status Diabetes mellitus complication status: with unspecified complications Qualified Code(s): E11.8 - Type 2 diabetes mellitus with unspecified complications (6) CKD (chronic kidney disease) Qualifiers: Chronic kidney disease stage: stage 3 (moderate) Qualified Code(s): N18.3 - Chronic kidney disease, stage 3 (moderate)
--- NOTE | 2018-09-21 12:45 | Cardiology Progress Note ---
Date of Encounter: 09/21/18 Time of Encounter: 12:42 Assessment and Plan (1) Atrial fibrillation with RVR Current Visit: Yes Status: Acute Known hx of A-Fib diagnosed in 2014 at [facility]. Home meds included Cardizem CD 120mg daily and Lopressor 25mg BID. Presented A-Fib RVR. Currently on Toprol XL 100mg daily. Primary team started pt on PO Cardizem CD 180mg daily and Cardizem gtt has been turned down to 5mg/hr. Pt is still not adequately rate controlled. 12 hr tele AVG HR 106 and fluctuating HR at bedside. Recommend leaving/uptitrating cardizem gtt until rate controlled before transitioning to PO. Anticoagulated on Coumadin, INR 1.8. K, Mag, TSH WNL. Will recommend outpt sleep study. TTE resulted--EF 40-45%, global dysfunction. Possibly tachycardia induced. Attempt to rate control, but if unable to achieve rate control will consider ALMA DELIA/DCCV during inpt stay. (2) Acute on chronic congestive heart failure Current Visit: Yes Status: Acute CC of worsening dyspnea, BLE edema and orthopnea over the past 6-8 weeks. Significant fluid overload on exam. BNP 295, CXR no acute findings. Reviewed [facility] records from 2014. TTE 09/2015 EF 55% and nuclear stress test at that time was negative for ischemia or infarct. TTE this admission showed EF moderately reduced--40-45%, global dysfunction. Currently on IV Lasix 20mg BID. Creatinine 1.48--monitor renal function closely with diuresis. Recommend strict I/Os, Na and fluid restriction, daily weights. Qualifiers: Heart failure type: combined systolic and diastolic Qualified Code(s): I50.43 - Acute on chronic combined systolic (congestive) and diastolic (congestive) heart failure (3) Cardiomyopathy Current Visit: Yes Status: Acute EF previously preserved in 2014 with negative stress test at that time. TTE during inpt stay shows EF has decreased to 40-45%, global dysfunction. NICMP (tachycardia induced) vs ICMP. Risk factors for CAD include obesity, HTN, HLD, DM. Will continue with diuresis, attempt to rate control. Will need to discuss inpt vs outpt ischemic evaluation. Continue to follow. Continue BB. No ACEi currently due to renal function. Qualifiers: Cardiomyopathy type: unspecified Qualified Code(s): I42.9 - Cardiomyopathy, unspecified Discussion w patient/family: The assessment and plan as outlined above was discussed with the patient and/or family members who expressed understanding and agreement. All questions were answered. Thank you for involving us in the care of your patient. Please call with any questions. I will discuss all the above with Dr. Zavala and make changes as necessary. Subjective Principal diagnosis: A-Fib RVR, CHF Interval history: Pt reports dyspnea has improved. 12 hr tele AVG HR 106, A-Fib. TTE resulted--EF 40-45%, global dysfunction. Objective Vital Signs, Last 4 Hours Temp Pulse Resp BP Pulse Ox 09/21/18 12:21 110 111/85 09/21/18 11:45 98 119/75 94 09/21/18 11:27 98 110/89 09/21/18 10:54 97.5 F L 105 20 125/83 95 09/21/18 10:26 142/108 09/21/18 10:00 105 09/21/18 09:00 136/99 Vital Signs Temp Pulse Resp BP Pulse Ox 09/21/18 12:42 100 117/91 94 09/21/18 12:21 110 111/85 09/21/18 11:45 98 119/75 94 09/21/18 11:27 98 110/89 09/21/18 10:54 97.5 F L 105 20 125/83 95 09/21/18 10:26 142/108 09/21/18 10:00 105 09/21/18 09:00 136/99 09/21/18 07:12 97.6 F 112 20 120/100 94 09/21/18 05:04 103 18 104/89 95 09/20/18 19:56 98.5 F 104 18 122/99 94 09/20/18 17:34 124/82 09/20/18 17:16 126/80 09/20/18 15:54 98.2 F 88 132/76 94 Intake and Output 09/20/18 09/21/18 09/21/18 23:59 07:59 15:59 Intake Total 50 / 50 100.0 / 100.0 144.4 / 144.4 Output Total 475 / 475 0 / 0 200 / 200 Balance -425 / -425 100.0 / 100.0 -55.6 / -55.6 Intake: IV Fluids 50 / 50 100.0 / 100.0 24.4 / 24.4 Cardizem 50 MG In 0.9 % Sodium 50 / 50 100.0 / 100.0 24.4 / 24.4 Chloride 40 ML @ 5 MG/HR 5 mls/ hr IVC .Q10H [facility] Rx#:[id number] Oral 120 / 120 Output: Urine 475 / 475 0 / 0 200 / 200 Other: Percent of Meal Consumed 100% # Voids 1 Weight 179.2 kg Blood Glucose* 148 136 208 Patient Weight 09/21/18 23:59 Weight 179.2 kg General: Conversant, No Apparent Distress HEENT: Atraumatic, Normocephaly, Mucus Membranes Moist Neck: Normal carotid pulses Cardiac: Other (irregularly irregular) Lungs: Other (mild crackles, diminished) Neuro: Alert and responsive, No focal deficits noted Abdomen: Soft, Non-Tender Skin: No rashes noted on visualized skin Musculoskeletal: No Chest Wall Tenderness Extremities: Other (2+ BLE edema) Results 09/21/18 03:56 09/21/18 03:56 Lab Results 09/20/18 09/21/18 09/21/18 12:36 03:56 03:56 WBC 11.7 H Hgb 17.6 H Hct 52.9 H Plt Count 175 INR 1.8 Sodium Potassium Chloride Carbon Dioxide BUN Creatinine Glucose Calcium Magnesium Troponin I < 0.03 09/21/18 03:56 WBC Hgb Hct Plt Count INR Sodium 139 Potassium 4.2 Chloride 105 Carbon Dioxide 27 BUN 28 H Creatinine 1.48 H Glucose 165 H Calcium 9.0 Magnesium 2.0 Troponin I Short CBC 09/21/18 Range/Units 03:56 WBC 11.7 H (4.3-11.1) K/mcL Hgb 17.6 H (12.9-16.9) g/dL Hct 52.9 H (37.5-50.1) % Plt Count 175 (140-400) K/mcL Neutrophils # 9.0 H (1.6-8.9) K/mcL BMP 09/21/18 Range/Units 03:56 Sodium 139 (136-145) mEq/L Potassium 4.2 (3.5-5.1) mEq/L Chloride 105 (98-107) mEq/L Carbon Dioxide 27 (23-29) mEq/L BUN 28 H (8-23) mg/dL Creatinine 1.48 H (0.70-1.30) mg/dL Glucose 165 H (70-105) mg/dL Calcium 9.0 (8.6-10.3) mg/dL Cardiac Enzymes 09/20/18 Range/Units 12:36 Troponin I < 0.03 (< 0.04) ng/mL Impressions Echocardiogram 09/19/18 20:15 Impressions: LVEF 40-45%. Moderate global left ventricular systolic dysfunction. Indeterminate diastolic function. RV not well visualized, grossly normal RV size with mild hypokinesis. Mildly dilated left atrium. No significant valvular dysfunction. Unable to estimate RVSP due to lack of TR jet. Left Ventricular Wall Motion: Rest Echo Findings The apex, apical inferior, mid inferior, basal inferior, apical anterior, mid anterior, basal anterior, apical septal, mid inferior septal, basal inferior septal, apical lateral, mid anterior lateral, basal anterior lateral, mid anterior septal, mid inferior lateral, basal anterior septal and basal inferior lateral ocampo were hypokinetic. Findings: Study Quality * Technically sub-optimal due to poor echocardiographic windows, Afib RVR and body habitus. ECG Findings * Atrial fibrillation, RVR. Left Ventricle * LVEF 40-45%. * Normal LV chamber size and wall thickness. * Moderate global left ventricular systolic dysfunction. * Indeterminate diastolic function. * Definity echo contrast was used. Right Ventricle * RV not well visualized, grossly normal RV size. * Mild right ventricular hypokinesis. Left Atrium * Mildly dilated left atrium. Right Atrium * Normal right atrial size. Interatrial Septum * Interatrial septum not well evaluated. Aortic Valve * Aortic valve not well visualized. * No aortic regurgitation. * No aortic stenosis. Mitral Valve * Normal mitral valve structure and function. * No mitral regurgitation. * No mitral stenosis. Tricuspid Valve * Tricuspid valve not well visualized. * No tricuspid stenosis. * Trace tricuspid regurgitation. * Unable to estimate RVSP due to lack of TR jet. Pulmonic Valve * Pulmonic valve is not well visualized. * No pulmonic regurgitation. * No pulmonic stenosis. Aorta * Normally sized aortic root. Pericardium * The pericardium appears normal. IVC * The IVC is not well evaluated. Active Medications Dextrose/Water (Dextrose 50% (Syg)) 25 ml IVP AD PRN PRN Reason: Hypoglycemia Stop: 03/22/19 12:15 Diltiazem HCl (Cardizem Cd) 180 mg PO DAILY [facility] Stop: 03/23/19 09:46 Last Admin: 09/21/18 10:14 Dose: 180 mg Furosemide (Lasix) 20 mg IVP BIDDIURETIC [facility] Stop: 03/22/19 08:01 Last Admin: 09/21/18 08:48 Dose: 20 mg Glucagon (Glucagen) 1 mg IM ONCE PRN PRN Reason: Hypoglycemia Stop: 03/22/19 12:15 Glucose (Gluctose) 15 gm PO ONCE PRN PRN Reason: Hypoglycemia Stop: 03/22/19 12:15 Glucose (Gluctose) 30 gm PO ONCE PRN PRN Reason: Hypoglycemia Stop: 03/22/19 12:15 Diltiazem HCl 50 mg/ Sodium (Chloride) 50 mls @ 5 mls/hr IVC .Q10H [facility] Stop: 03/21/19 19:16 Last Infusion: 09/21/18 12:23 Dose: 10 mg/hr, 10 mls/hr Dextrose (Dextrose 5%) 1,000 mls @ 100 mls/hr IVC .Q10H PRN PRN Reason: HYPOGLYCEMIA Stop: 03/22/19 12:15 Insulin Detemir (Levemir) 5 unit SQ HS [facility] Stop: 03/23/19 21:01 Insulin Human Lispro (Humalog) 0 units SQ TIDAC [facility]; Protocol Stop: 03/22/19 16:31 Last Admin: 09/21/18 11:32 Dose: 6 units Metoprolol Succinate (Toprol Xl) 100 mg PO DAILY [facility] Stop: 03/23/19 09:01 Last Admin: 09/21/18 08:48 Dose: 100 mg Tamsulosin HCl (Flomax) 0.4 mg PO DAILY [facility]; Protocol Stop: 03/22/19 09:01 Last Admin: 09/21/18 08:48 Dose: 0.4 mg Terazosin HCl (Hytrin) 2 mg PO DAILY [facility] Stop: 03/22/19 09:01 Last Admin: 09/21/18 08:48 Dose: 2 mg Warfarin Sodium (Coumadin Perpt) 1 each PO DAILY@1800 PRN PRN Reason: SEE COMMENTS Stop: 03/22/19 18:01 - Imaging and Cardiology Echo: report reviewed - EKG Interpretation EKG results cardiology: other (12 hr tele AVG HR 106, A-Fib) Consult Discharge Plan - Plan Referrals: Kvng Hewitt MD [Primary Care Provider] -
[2018-09-21] MEDS ORDERED: *HR* Warfarin 7.5 MG TABLET PO ONE (18:00)
[2018-09-21] MEDS: Insulin DETEMIR 100 UNIT/ML X5UNITS SQ SCH (21:28)
[2018-09-22 07:39] LABS: Basophils # 0.1 K/mcL (0.0-0.2); Basophils % 0.5 %; Eosinophils # 0.3 K/mcL (0.0-0.6); Hematocrit 51.6 % (37.5-50.1); Hemoglobin 16.8 g/dL (12.9-16.9); Immature Granulocytes % 0.8 % (0-4); Lymphocytes # 1.5 K/mcL (0.6-4.6); Lymphocytes % 13.8 %; Mean Corpuscular HGB Conc 32.6 g/dL (31.6-35.5); Mean Corpuscular Hemoglobin 29.6 pg (28.0-33.3); Mean Platelet Volume 11.2 fL (9.4-12.4); Monocytes # 0.9 K/mcL (0.0-1.3); Monocytes % 8.1 %; Platelet Count 178 K/mcL (140-400); Red Blood Count 5.67 M/mcL (4.19-5.50); Red Cell Distribution Width 13.8 % (11.5-14.5); Segmented Neutrophils % 73.8 %
[2018-09-22 07:52] LABS: Prothrombin Time 22.1 Seconds (9.4-12.1)
[2018-09-22 07:59] LABS: Calcium 8.8 mg/dL (8.6-10.3); Magnesium 2.2 mg/dL (1.6-2.6); Phosphorous 3.1 mg/dL (2.7-4.5); Potassium 4.3 mEq/L (3.5-5.1)
[2018-09-22] MEDS: Insulin LISPRO 300 UNITS/3 ML VIAL SQ SCH ×3 (08:33→18:15)
[2018-09-22] MEDS: Furosemide 20 MG/2 ML VIAL IVP SCH (08:33)
[2018-09-22] MEDS: Metoprolol XL (24 HR) Succ 50 MG TAB.ER.24H PO SCH ×2 (08:33→21:54)
--- NOTE | 2018-09-22 10:02 | Cardiology Progress Note ---
Date of Encounter: 09/22/18 Time of Encounter: 09:59 Assessment and Plan (1) Atrial fibrillation with RVR Current Visit: Yes Status: Acute Known hx of A-Fib diagnosed in 2014 at [facility]. Home meds included Cardizem CD 120mg daily and Lopressor 25mg BID. Presented A-Fib RVR. Currently on Toprol XL 100mg daily. On Cardizem gtt at 10mg/hr. 12 hr tele AVG HR 93. HR at bedside 90s-110s. Discussed and reviewed with Dr. Zavala. He recommends increasing BB and try to wean off cardizem gtt given pt is in acute CHF exacerbation with reduced EF 40- 45%. Increase Toprol XL to 150mg BID. Anticoagulated on Coumadin, INR 2.0. K, Mag, TSH WNL. Recommend outpt sleep study. TTE--EF 40-45%, global dysfunction, mildy dilated LA. Possibly tachycardia induced CMP. Discussed with Dr. Zavala. Recommends ALMA DELIA guided DCCV tomorrow in attempt to restore SR. Needs ALMA DELIA since INR was subtherapeutic yesterday 1.8. (2) Acute on chronic congestive heart failure Current Visit: Yes Status: Acute CC of worsening dyspnea, BLE edema and orthopnea over the past 6-8 weeks. Significant fluid overload on exam. BNP 295, CXR no acute findings. Reviewed [facility] records from 2014. TTE 09/2015 EF 55% and nuclear stress test at that time was negative for ischemia or infarct. TTE this admission showed EF moderately reduced--40-45%, global dysfunction. Currently on IV Lasix 20mg BID. Creatinine 1.46, stable--monitor renal function closely with diuresis. Recommend strict I/Os, Na and fluid restriction, daily weights. Qualifiers: Heart failure type: combined systolic and diastolic Qualified Code(s): I50.43 - Acute on chronic combined systolic (congestive) and diastolic (congestive) heart failure (3) Cardiomyopathy Current Visit: Yes Status: Acute EF previously preserved in 2014 with negative stress test at that time. TTE during inpt stay shows EF has decreased to 40-45%, global dysfunction. NICMP (tachycardia induced) vs ICMP. Risk factors for CAD include obesity, HTN, HLD, DM. Will continue with diuresis. Discussed with Dr. Zavala. Plan for ALMA DELIA guided DCCV tomorrow in attempt to restore SR with goal of improving EF. Since plan is for inpt DCCV, will need to stay on anticoagulation uninterrupted x 1 month after and consider outpt ischemic evaluation (stress test vs LHC). Continue to follow. Continue BB. No ACEi currently due to renal function. Qualifiers: Cardiomyopathy type: unspecified Qualified Code(s): I42.9 - Cardiomyopathy, unspecified Discussion w patient/family: The assessment and plan as outlined above was discussed with the patient and/or family members who expressed understanding and agreement. All questions were answered. Thank you for involving us in the care of your patient. Please call with any questions. I will discuss all the above with Dr. Zavala and make changes as necessary. Subjective Principal diagnosis: A-Fib RVR, CHF Interval history: Pt reports dyspnea has improved. 12 hr tele AVG HR 93, A-Fib. Objective Vital Signs, Last 4 Hours Temp Pulse Resp BP Pulse Ox 09/22/18 07:32 97.6 F 88 16 122/85 92 Vital Signs Temp Pulse Resp BP Pulse Ox 09/22/18 07:32 97.6 F 88 16 122/85 92 09/22/18 04:40 93 18 111/61 95 09/22/18 01:18 93 111/96 09/22/18 00:16 81 17 104/95 95 09/21/18 21:31 98.5 F 89 17 103/80 96 09/21/18 18:08 82 18 110/75 94 09/21/18 16:24 97.3 F L 76 18 106/79 95 09/21/18 15:56 87 106/85 09/21/18 15:30 114 18 107/86 09/21/18 13:44 114 107/72 94 09/21/18 12:42 100 117/91 94 09/21/18 12:21 110 111/85 09/21/18 11:45 98 119/75 94 09/21/18 11:27 98 110/89 09/21/18 10:54 97.5 F L 105 20 125/83 95 09/21/18 10:26 142/108 Intake and Output 09/21/18 09/22/18 09/22/18 23:59 07:59 15:59 Intake Total 62.1 / 62.1 37.9 / 37.9 480 / 480 Output Total 0 / 0 550 / 550 Balance 62.1 / 62.1 -512.1 / -512.1 480 / 480 Intake: IV Fluids 62.1 / 62.1 37.9 / 37.9 Cardizem 50 MG In 0.9 % Sodium 62.1 / 62.1 37.9 / 37.9 Chloride 40 ML @ 5 MG/HR 5 mls/ hr IVC .Q10H [facility] Rx#:[id number] Oral 480 / 480 Output: Urine 0 / 0 550 / 550 Other: Meal Breakfast Percent of Meal Consumed 100% Weight 178.8 kg Blood Glucose* 138 147 Patient Weight 09/22/18 23:59 Weight 178.8 kg General: Conversant, No Apparent Distress HEENT: Atraumatic, Normocephaly, Mucus Membranes Moist Neck: Normal carotid pulses Cardiac: Other (irregularly irregular) Lungs: Other (diminished) Neuro: Alert and responsive, No focal deficits noted Abdomen: Soft, Non-Tender Skin: No rashes noted on visualized skin Musculoskeletal: No Chest Wall Tenderness Extremities: Other (3+ BLE edema) Results 09/22/18 07:11 09/22/18 07:11 Lab Results 09/22/18 09/22/18 09/22/18 07:11 07:11 07:11 WBC 10.8 Hgb 16.8 Hct 51.6 H Plt Count 178 INR 2.0 Sodium 140 Potassium 4.3 Chloride 104 Carbon Dioxide 29 BUN 31 H Creatinine 1.46 H Glucose 155 H Calcium 8.8 Magnesium 2.2 Short CBC 09/22/18 Range/Units 07:11 WBC 10.8 (4.3-11.1) K/mcL Hgb 16.8 (12.9-16.9) g/dL Hct 51.6 H (37.5-50.1) % Plt Count 178 (140-400) K/mcL Neutrophils # 8.0 (1.6-8.9) K/mcL BMP 09/22/18 Range/Units 07:11 Sodium 140 (136-145) mEq/L Potassium 4.3 (3.5-5.1) mEq/L Chloride 104 (98-107) mEq/L Carbon Dioxide 29 (23-29) mEq/L BUN 31 H (8-23) mg/dL Creatinine 1.46 H (0.70-1.30) mg/dL Glucose 155 H (70-105) mg/dL Calcium 8.8 (8.6-10.3) mg/dL Impressions Echocardiogram 09/19/18 20:15 Impressions: LVEF 40-45%. Moderate global left ventricular systolic dysfunction. Indeterminate diastolic function. RV not well visualized, grossly normal RV size with mild hypokinesis. Mildly dilated left atrium. No significant valvular dysfunction. Unable to estimate RVSP due to lack of TR jet. Left Ventricular Wall Motion: Rest Echo Findings The apex, apical inferior, mid inferior, basal inferior, apical anterior, mid anterior, basal anterior, apical septal, mid inferior septal, basal inferior septal, apical lateral, mid anterior lateral, basal anterior lateral, mid anterior septal, mid inferior lateral, basal anterior septal and basal inferior lateral ocampo were hypokinetic. Findings: Study Quality * Technically sub-optimal due to poor echocardiographic windows, Afib RVR and body habitus. ECG Findings * Atrial fibrillation, RVR. Left Ventricle * LVEF 40-45%. * Normal LV chamber size and wall thickness. * Moderate global left ventricular systolic dysfunction. * Indeterminate diastolic function. * Definity echo contrast was used. Right Ventricle * RV not well visualized, grossly normal RV size. * Mild right ventricular hypokinesis. Left Atrium * Mildly dilated left atrium. Right Atrium * Normal right atrial size. Interatrial Septum * Interatrial septum not well evaluated. Aortic Valve * Aortic valve not well visualized. * No aortic regurgitation. * No aortic stenosis. Mitral Valve * Normal mitral valve structure and function. * No mitral regurgitation. * No mitral stenosis. Tricuspid Valve * Tricuspid valve not well visualized. * No tricuspid stenosis. * Trace tricuspid regurgitation. * Unable to estimate RVSP due to lack of TR jet. Pulmonic Valve * Pulmonic valve is not well visualized. * No pulmonic regurgitation. * No pulmonic stenosis. Aorta * Normally sized aortic root. Pericardium * The pericardium appears normal. IVC * The IVC is not well evaluated. Active Medications Dextrose/Water (Dextrose 50% (Syg)) 25 ml IVP AD PRN PRN Reason: Hypoglycemia Stop: 03/22/19 12:15 Furosemide (Lasix) 20 mg IVP BIDDIURETIC [facility] Stop: 03/22/19 08:01 Last Admin: 09/22/18 08:33 Dose: 20 mg Glucagon (Glucagen) 1 mg IM ONCE PRN PRN Reason: Hypoglycemia Stop: 03/22/19 12:15 Glucose (Gluctose) 15 gm PO ONCE PRN PRN Reason: Hypoglycemia Stop: 03/22/19 12:15 Glucose (Gluctose) 30 gm PO ONCE PRN PRN Reason: Hypoglycemia Stop: 03/22/19 12:15 Diltiazem HCl 50 mg/ Sodium (Chloride) 50 mls @ 5 mls/hr IVC .Q10H [facility] Stop: 03/21/19 19:16 Last Admin: 09/22/18 05:45 Dose: 10 mg/hr, 10 mls/hr Dextrose (Dextrose 5%) 1,000 mls @ 100 mls/hr IVC .Q10H PRN PRN Reason: HYPOGLYCEMIA Stop: 03/22/19 12:15 Insulin Detemir (Levemir) 5 unit SQ HS [facility] Stop: 03/23/19 21:01 Last Admin: 09/21/18 21:28 Dose: 5 unit Insulin Human Lispro (Humalog) 0 units SQ TIDAC [facility]; Protocol Stop: 03/22/19 16:31 Last Admin: 09/22/18 08:33 Dose: 4 units Metoprolol Succinate (Toprol Xl) 100 mg PO DAILY [facility] Stop: 03/23/19 09:01 Last Admin: 09/22/18 08:33 Dose: 100 mg Tamsulosin HCl (Flomax) 0.4 mg PO DAILY [facility]; Protocol Stop: 03/22/19 09:01 Last Admin: 09/22/18 08:32 Dose: 0.4 mg Terazosin HCl (Hytrin) 2 mg PO DAILY [facility] Stop: 03/22/19 09:01 Last Admin: 09/22/18 08:32 Dose: 2 mg Warfarin Sodium (Coumadin Perpt) 1 each PO DAILY@1800 PRN PRN Reason: SEE COMMENTS Stop: 03/22/19 18:01 - Imaging and Cardiology Echo: report reviewed - EKG Interpretation EKG results cardiology: other (12 hr tele AVG HR 93, A-Fib) Consult Discharge Plan - Plan Referrals: Kvng Hewitt MD [Primary Care Provider] -
[2018-09-22] MEDS ORDERED: Metoprolol XL (24 HR) Succ 50 MG TAB.ER.24H PO ONE (10:12)
--- NOTE | 2018-09-22 10:29 | Internal Med Progress Note ---
Hospitalist Progress Note - Encounter Date of Encounter: 09/22/18 Time of Encounter: 10:26 - Subjective Interval History: I have seen and evaluated the patient at bedside. Reports feeling well, denies palpitations or shortness of breath, no chest pain, nausea or vomiting. still on the cardizem drip. - Exam Vitals: Temp Pulse Resp BP Pulse Ox 97.6 F 88 16 122/85 92 09/22/18 07:32 09/22/18 07:32 09/22/18 07:32 09/22/18 07:32 09/22/18 07:32 Exam: Vitals: Reviewed. General: Morbid obese, No acute distress. Skin: Normal color, no rash, no lesions. Cardiovascular: Irregularly irregular, Normal S1 & S2, no rubs, murmurs or gallops. Lungs: Decreased chest expansion, no wheezes, rales or crackles. Abdomen: Obese Soft, non-tender, no rigidity. NABS in all 4 quadrants. Extremities: 2+ pitting edema in the lower extremity bilaterally. Neurological: Normal cognition. CN II-XII intact. Psych: Affect appropriate. Rest of the physical exam is non contributory - Assessment and Plan (1) Atrial fibrillation with RVR Current Visit: Yes Status: Acute Assessment and Plan: Rate non-controlled. on the cardizem drip cardiology recommended to increase metoprolol to 150mg/PO daily diltiazem PO discontinued scheduled for ALMA DELIA guided DCCV tomorrow On warfarin per pharmacy dosing, INR Therapeutic (2) Acute on chronic congestive heart failure Current Visit: Yes Status: Acute Assessment and Plan: total balance +ve 900 ml Plan will increase furosemide to 40mg/IV BID continue fluid restriction strategy daily weight on a beta gabe No ACEs or ARBs due to CKD. (3) BPH (benign prostatic hyperplasia) Current Visit: Yes Status: Chronic Assessment and Plan: Continue tamsulosin 0.4 mg by mouth daily. (4) Hypertension Current Visit: Yes Status: Chronic Assessment and Plan: Blood pressure has been well controlled. Patient is on metoprolol 150 mg by mouth daily. Furosemide increased to 40 mg IV twice a day. (5) Diabetes Current Visit: Yes Status: Chronic Assessment and Plan: Blood sugar is well controlled. On Levemir 5 units at bedtime, and lispro medium dose sliding scale before meals. (6) CKD (chronic kidney disease) Current Visit: Yes Status: Chronic Assessment and Plan: Avoid nephrotoxic medication. Kidney function at baseline. DVT Prophylaxis: Patient anticoagulated with warfarin. Due to atrial fibrillation. - Summary of Assessment and Plan Summary of Assessment and Plan: Patient remains in A. fib and RVR on a cardizem drip. Scheduled for a ALMA DELIA guided DCCV tomorrow - Time Spent with Patient Total time spent is greater than 50% in coordination of care (as documented) at patient's floor/unit and/or counseling patient: Greater than 35 minutes (40) Plan of Care Discussed with: patient (and the nurse.) Internal Medicine: Result - Labs CBC & Chem 7: 09/22/18 07:11 09/22/18 07:11 Labs: Short CBC 09/22/18 Range/Units 07:11 WBC 10.8 (4.3-11.1) K/mcL Hgb 16.8 (12.9-16.9) g/dL Hct 51.6 H (37.5-50.1) % Plt Count 178 (140-400) K/mcL Neutrophils # 8.0 (1.6-8.9) K/mcL BMP 09/22/18 07:11 Sodium 140 Potassium 4.3 Chloride 104 Carbon Dioxide 29 BUN 31 H Creatinine 1.46 H Glucose 155 H Calcium 8.8 - ABG Interpretation ABG results: PT/INR, D-dimer PT 22.1 Seconds (9.4-12.1) H 09/22/18 07:11 Consult Discharge Plan - Plan Referrals: Kvng Hewitt MD [Primary Care Provider] - (2) Acute on chronic congestive heart failure Qualifiers: Heart failure type: combined systolic and diastolic Qualified Code(s): I50.43 - Acute on chronic combined systolic (congestive) and diastolic (congestive) heart failure (3) BPH (benign prostatic hyperplasia) Qualifiers: Lower urinary tract symptom presence: unspecified whether lower urinary tract symptoms present Qualified Code(s): N40.0 - Benign prostatic hyperplasia without lower urinary tract symptoms (4) Hypertension Qualifiers: Hypertension type: essential hypertension Qualified Code(s): I10 - Essential (primary) hypertension (5) Diabetes Qualifiers: Diabetes mellitus type: type 2 Diabetes mellitus blood coordinator insulin use: unspecified blood coordinator insulin use status Diabetes mellitus complication status: with unspecified complications Qualified Code(s): E11.8 - Type 2 diabetes mellitus with unspecified complications (6) CKD (chronic kidney disease) Qualifiers: Chronic kidney disease stage: stage 3 (moderate) Qualified Code(s): N18.3 - Chronic kidney disease, stage 3 (moderate)
[2018-09-22] MEDS ORDERED: Furosemide 40 MG/4 ML VIAL IVP SCH (17:00)
[2018-09-22] MEDS ORDERED: *HR* Warfarin 7.5 MG TABLET PO ONE (18:00)
[2018-09-22] MEDS: Insulin DETEMIR 100 UNIT/ML X5UNITS SQ SCH (21:54)
[2018-09-23 04:56] LABS: Basophils # 0.1 K/mcL (0.0-0.2); Basophils % 0.5 %; Eosinophils # 0.3 K/mcL (0.0-0.6); Eosinophils % 2.6 %; Hematocrit 51.2 % (37.5-50.1); Hemoglobin 16.9 g/dL (12.9-16.9); Immature Granulocytes % 0.7 % (0-4); Lymphocytes # 1.6 K/mcL (0.6-4.6); Lymphocytes % 15.9 %; Mean Corpuscular Hemoglobin 29.8 pg (28.0-33.3); Mean Corpuscular Volume 90.1 fL (83.0-100.0); Mean Platelet Volume 11.2 fL (9.4-12.4); Monocytes # 0.7 K/mcL (0.0-1.3); Monocytes % 6.7 %; Neutrophils # 7.2 K/mcL (1.6-8.9); Platelet Count 193 K/mcL (140-400); Red Blood Count 5.68 M/mcL (4.19-5.50); Red Cell Distribution Width 14.1 % (11.5-14.5); Segmented Neutrophils % 73.6 %
[2018-09-23 05:28] LABS: Calcium 8.6 mg/dL (8.6-10.3); Magnesium 2.1 mg/dL (1.6-2.6); Phosphorous 3.2 mg/dL (2.7-4.5); Potassium 4.1 mEq/L (3.5-5.1)
[2018-09-23] MEDS: Metoprolol XL (24 HR) Succ 50 MG TAB.ER.24H PO SCH ×2 (08:12→20:14)
[2018-09-23] MEDS: Insulin LISPRO 300 UNITS/3 ML VIAL SQ SCH ×3 (08:12→17:14)
[2018-09-23] MEDS ORDERED: Lidocaine Viscous Oral Soln 15 ML SOLUTION MM PRN (08:50)
[2018-09-23] MEDS ORDERED: 0.9 % Sodium Chloride 500 ML IVC ONE (08:51)
[2018-09-23] MEDS ORDERED: Tetracaine/Benzocaine/Butamben 1 SPRAY AEROSOL MM ONE (08:51)
--- NOTE | 2018-09-23 09:08 | Event Note ---
Date of Encounter: 09/23/18 Time of Encounter: 09:06 - Cardiology Event Note Patient remains in afib. DCCV with ALMA DELIA recommended as previously discussed. I reviewed procedure with patient and he agrees to proceed. He was not able to be weaned off cardizem gtt. Plan to convert to oral medication today. Noted Scr increasing. H/o CKD, still in patients baseline. Agree with decrease in IV lasix by primary team. Continue to monitor.
[2018-09-23] MEDS: *HR* FentaNYL (PF) 100 MCG/2 ML VIAL IVP PRN ×2 (09:45→09:50)
[2018-09-23] MEDS: *HR* Midazolam HCl 5 MG/5 ML VIAL IVP PRN ×2 (09:45→09:50)
--- NOTE | 2018-09-23 11:27 | Event Note ---
Date of Encounter: 09/23/18 Time of Encounter: 11:19 - Cardiology Event Note Pt underwent ALMA DELIA with DCCV. No thrombus seen. He initially converted to NSR after 300 joule shock. Unfortunately, he converted back to atrial fibrillation after [address] Reddy. We will continue rate control. Initial TTE showed EF 40-45% (completed while pt in atrial fibrillation with RVR). Ideally cardizem should not be used in the setting of CMP. We will re-peat TTE to re- evaluate EF now that HR is controlled. If EF returned to normal we will convert IV cardizem to oral.
[2018-09-23] MEDS: Furosemide 20 MG/2 ML VIAL IVP SCH (12:31)
--- NOTE | 2018-09-23 13:05 | Internal Med Progress Note ---
Hospitalist Progress Note - Encounter Date of Encounter: 09/23/18 Time of Encounter: 13:01 - Subjective Interval History: I have seen and evaluated the patient at bedside. Patient reports doing well, but reports having lower extr soreness which he believes is due to the fluid accumulation. denies chest pain, palpitation, or shortness of breath. - Exam Vitals: Temp Pulse Resp BP Pulse Ox 97.6 F 80 18 130/84 96 09/23/18 11:44 09/23/18 11:44 09/23/18 11:44 09/23/18 11:44 09/23/18 11:44 Exam: Vitals: Reviewed. General: Morbid obese, No acute distress. Cardiovascular: Irregularly irregular, Normal S1 & S2, no rubs, murmurs or gallops. Lungs: Decreased chest expansion, no wheezes, rales or crackles. Abdomen: Obese Soft, non-tender, no rigidity. NABS in all 4 quadrants. Extremities: 2+ pitting edema in the lower extremity bilaterally. mild erythema on the left lower extr, no warmth or tenderness. Neurological: Normal cognition. CN II-XII intact. Psych: Affect appropriate. Rest of the physical exam is non contributory - Assessment and Plan (1) Atrial fibrillation with RVR Current Visit: Yes Status: Acute Assessment and Plan: patient still on a Cardizem drip, rate batter controlled s/p ALMA DELIA DCCC converted for a short period of time and is back to A.Fib on metoprolol 150mg/PO daily on Warfarin with therapeutic INR 2.0 due to high CHADSVASC score cardiology recommendations appreciated. (2) BPH (benign prostatic hyperplasia) Current Visit: Yes Status: Chronic Assessment and Plan: On tamsulosin 0.4mg/PO daily (3) Hypertension Current Visit: Yes Status: Chronic Assessment and Plan: Blood pressure has been well controlled continue furosemide 20mg/IV Daily and metoprolol 150mg/PO daily (4) Diabetes Current Visit: Yes Status: Chronic Assessment and Plan: blood sugar is well controlled continue levemir 5 units HS and lispro low dose sliding scale AC Carb controlled diet (5) CKD (chronic kidney disease) Current Visit: Yes Status: Chronic Assessment and Plan: creatinine slightly increased furosemide dosage decreased avoid nephrotoxic medications (6) Congestive heart failure Current Visit: Yes Status: Acute Assessment and Plan: exacerbation has improved. total balance positive for 2 litter, Kg down from 178 on admission to 176 today Plan furosemide decreased to 20mg/IV daily due to worsening in kidney function On metoprolol 150mg/PO daily continue fluid restriction strategies No aces/arbs due to BRIJESH/CKD - Time Spent with Patient Total time spent is greater than 50% in coordination of care (as documented) at patient's floor/unit and/or counseling patient: Internal Medicine: Result - Labs CBC & Chem 7: 09/23/18 04:01 09/23/18 04:01 Labs: Short CBC 09/23/18 Range/Units 04:01 WBC 9.7 (4.3-11.1) K/mcL Hgb 16.9 (12.9-16.9) g/dL Hct 51.2 H (37.5-50.1) % Plt Count 193 (140-400) K/mcL Neutrophils # 7.2 (1.6-8.9) K/mcL BMP 09/23/18 04:01 Sodium 140 Potassium 4.1 Chloride 103 Carbon Dioxide 28 BUN 31 H Creatinine 1.54 H Glucose 155 H Calcium 8.6 - ABG Interpretation ABG results: PT/INR, D-dimer PT 23.0 Seconds (9.4-12.1) H 09/23/18 04:01 - Impressions Impressions Transesophageal w/Cardioversion 09/23/18 08:00 Impressions: Patient unable to maintain normal sinus rhythm. Patient converted to normal sinus rhythm from atrial fibrillation at 300J of biphasic energy. Patient maintained NSR for approximately 2 minutes and then returned to atrial fibrillation, HR 80-90's. Recommend outpatient sleep study. Moderate-severe bi-atrial enlargement. Moderately reduced LVEF. Mildly reduced RV systolic function. Intra-cardiac thrombus not observed. Medication Given: Time Medication Dose Units Route 09:45 Versed 2 mg IV 09:45 Fentanyl 25 mcg IV 09:50 Versed 1 mg IV 09:50 Fentanyl 25 mcg IV Findings: Study Quality * Technically challenging due to body habitus. Left Ventricle * LV systolic function moderately reduced. Right Ventricle * RV systolic function mildly reduced. Left Atrium * LA size moderate to severely dilated. * The LA appendage flow velocity is reduced. * No thrombus present. Right Atrium * RA size moderate to severely dilated. * No thrombus present. Pulmonary Veins * There is no pulmonary vein thrombus. * Systolic blunting flow patterns. Procedure Summary: After explaining the risks, benefits, and alternatives of the procedure to the patient in detail and answering all questions to satisfaction, an informed consent was obtained in writing. The patient was NPO for the six hours prior to the procedure. The patient denied dysphagia, odynophagia, and loose teeth. The patient was monitored with periodic automated blood pressures and continuous pulse oximetry and telemetry. Continuous oxygen was administered by [place]. The patient was placed in the full upright position and the posterior oropharynx was anesthetized as above and complete suppression of the gag reflex was obtained. The patient was then placed in the left lateral decubitus position, the neck was flexed, and a bite block was placed in the patient's mouth. IV sedation was administered. Once adequate sedation was achieved, a well-lubricated anteflexed multipoint intraesophageal echocardiographic probe was inserted into the midline posterior oropharynx. The patient swallowed and the esophagus was intubated without difficulty. The scope was advanced to the mid esophagus without encountering resistance. Images were obtained from the mid and upper esophagus. Images from the gastric globe were not obtained. The scope was then slowly withdrawn as the patient was continually suctioned. The patient tolerated the procedure without complication. Oxygen desaturated to 89% during the procedure. After adequate sedation was achieved, cardioversion in the AP approach was performed using 250 and then 300 Joules of biphasic energy. Normal sinus rhythm was restored after 2 attempt(s). Patient maintained NSR for approximately 2 minutes and then returned to atrial fibrillation. The patient was monitored for the standard 30 minutes post procedure. Complications: Arrhythmia (unable to maintain NSR) History: Hypertension Congestive Heart Failure Previous Echo 09/20/2018 BP 129 / 103 Updated by Madisyn Lopez on 09/23/2018 10:58:21 AM electronically signed on 09/23/2018 11:04:44 AM with status of [employer] [place]: 1=Normal, 2=Hypokinesis, 3=Akinesis, 4=Dyskinesis, 5=Aneurysmal, 6=Hyperkinetic, X=Not Visualized (Blank)=Missing Consult Discharge Plan - Plan Referrals: Kvng Hewitt MD [Primary Care Provider] - (2) BPH (benign prostatic hyperplasia) Qualifiers: Lower urinary tract symptom presence: unspecified whether lower urinary tract symptoms present Qualified Code(s): N40.0 - Benign prostatic hyperplasia without lower urinary tract symptoms (3) Hypertension Qualifiers: Hypertension type: essential hypertension Qualified Code(s): I10 - Essential (primary) hypertension (4) Diabetes Qualifiers: Diabetes mellitus type: type 2 Diabetes mellitus chcf insulin use: unspecified 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
[2018-09-23] MEDS ORDERED: Perflutren Lipid Microsphere 1.3 ML in 0.9 % Sodium Chloride 8.7 ML IVP ONE (16:08)
[2018-09-23] MEDS ORDERED: *HR* Warfarin 7.5 MG TABLET PO ONE (18:00)
[2018-09-23] MEDS: Insulin DETEMIR 100 UNIT/ML X5UNITS SQ SCH (20:14)
--- NOTE | 2018-09-23 21:36 | Electrocardiograph Report ---
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
--- NOTE | 2018-09-23 21:51 | Electrocardiograph Report ---
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
[2018-09-24 05:50] LABS: INR 2.2; Prothrombin Time 25.2 Seconds (9.4-12.1)
[2018-09-24] MEDS: Insulin LISPRO 300 UNITS/3 ML VIAL SQ SCH ×2 (08:56→13:22)
--- NOTE | 2018-09-24 09:06 | Event Note ---
Date of Encounter: 09/24/18 Time of Encounter: 09:05 - Cardiology Event Note TTE repeated not that HR in controlled. LVEF 50-55%, ok for cardizem. Discussed and reviewed with , will start oral cardizem, 2 hours after oral cardizem given, wean cardizem to off. Cardiology will sign off and will arrange ou tpatient follow up.
[2018-09-24] MEDS ORDERED: Diltiazem CD (24hr) 120 MG CAPSULE PO SCH (09:15)
[2018-09-24] MEDS: Metoprolol XL (24 HR) Succ 50 MG TAB.ER.24H PO SCH (09:15)
[2018-09-24] MEDS: Furosemide 20 MG/2 ML VIAL IVP SCH (09:15)
--- NOTE | 2018-09-24 10:17 | Discharge Summary ---
- NOTES TO OUTPATIENT PROVIDER Notes to Outpatient Provider: Follow-up with cardiology within a week hospital discharge. Have a repeat BMP within a week to follow kidnye function. Orders not resulted at time of discharge: Pending orders 09/24/18 07:28 BMP [Basic Metabolic Panel] Stat Magnesium Stat Phosphorous Stat 09/25/18 04:00 PT/INR [Prothrombin Time INR] [COAG] AM 0400 09/26/18 04:00 PT/INR [Prothrombin Time INR] [COAG] AM 0400 Date of Encounter: 09/24/18 Time of Encounter: 10:15 - Discharge Diagnosis (1) Atrial fibrillation with RVR Priority: Primary Status: Resolved (2) BPH (benign prostatic hyperplasia) Priority: Secondary Status: Chronic Qualifiers: Lower urinary tract symptom presence: unspecified whether lower urinary tract symptoms present Qualified Code(s): N40.0 - Benign prostatic hyperplasia without lower urinary tract symptoms (3) Hypertension Priority: Secondary Status: Chronic Qualifiers: Hypertension type: essential hypertension Qualified Code(s): I10 - Essential (primary) hypertension (4) Diabetes Priority: Secondary Status: Chronic Qualifiers: Diabetes mellitus type: type 2 Diabetes mellitus custodial insulin use: unspecified intermediate teacher insulin use status Diabetes mellitus complication status: with unspecified complications Qualified Code(s): E11.8 - Type 2 diabetes mellitus with unspecified complications (5) CKD (chronic kidney disease) Priority: Secondary Status: Chronic Qualifiers: Chronic kidney disease stage: stage 3 (moderate) Qualified Code(s): N18.3 - Chronic kidney disease, stage 3 (moderate) (6) Congestive heart failure Priority: Secondary Status: Chronic Qualifiers: Heart failure type: unspecified Heart failure chronicity: acute Qualified Code(s): I50.9 - Heart failure, unspecified Hospital course: Mr. Limon is a 62 year old male history of BPH, hypertension, atrial fibrillation and heart failure who presents to the ER complaining of increasing shortness of breath that has been intermittently present for months. On arrival to the ER he was found to be in afib in RVR and was started in IV diltiazem drip. During this admission patient underwent a ALMA DELIA with DCCV, unfortunately patient converted right back to A.fib. HR was controlled with metoprolol and cardizem PO. Cardizem drip discontinue. Cardiology recommended to continue metoprolol and cardizem and to follow up with them within a week of hospital discharge. Patient is hemodynamically stable to be discharged home. - Time Spent with Patient Total time spent providing and/or coordinating discharge services: Greater than 30 minutes (45) - Discharge Medications Prescriptions: Metoprolol XL (24 HR) Succ [Toprol Xl] 150 mg PO BID 30 Days #60 tab.er.24h Home Medications: Furosemide [Lasix] 20 mg PO BID 09/19/18 [History] Tamsulosin HCl [Flomax] 0.4 mg PO DAILY 09/19/18 [History] Terazosin HCl 2 mg PO DAILY 09/19/18 [History] Warfarin [Coumadin] 7.5 mg PO MOTUWETHFR 09/19/18 [History] dilTIAZem HCl [Diltiazem 24Hr Cd] 120 mg PO DAILY 09/19/18 [History] Amlodipine Besylate 10 mg PO DAILY 09/20/18 [History] Aspirin [Lo-Dose Aspirin EC] 81 mg PO DAILY 09/20/18 [History] Lisinopril [Zestril] 20 mg PO DAILY 09/20/18 [History] Spironolactone [Aldactone] 25 mg PO BID 09/20/18 [History] Warfarin [Coumadin] 5 mg PO SUSA 09/20/18 [History] Metoprolol XL (24 HR) Succ [Toprol Xl] 150 mg PO BID 30 Days #60 tab.er.24h 09/24/18 [Rx] Allergies/Adverse Reactions: Allergy/AdvReac Type Severity Reaction Status Date / Time No Known Allergies Allergy Verified 11/29/15 11:10 Date of admission: 09/20/18 14:08 Primary care physician: Kvng Hewitt MD Consults: 09/20/18 12:27 Consult to Cardiology [CONS] Routine Comment: Consulting Provider: Cardiology [place] Reason for Consult: A. fib with RVR. On a Cardizem drip. Call Completed: No - Constitutional Vitals: Temp Pulse Resp BP Pulse Ox 97.4 F L 84 18 112/79 94 09/24/18 06:53 09/24/18 06:53 09/24/18 06:53 09/24/18 06:53 09/24/18 06:53 Exam: Vitals: Reviewed. General: Morbid obese, No acute distress. Cardiovascular: Irregularly irregular, Normal S1 & S2, no rubs, murmurs or gallops. Lungs: Decreased chest expansion, no wheezes, rales or crackles. Abdomen: Obese Soft, non-tender, no rigidity. NABS in all 4 quadrants. Extremities: 2+ pitting edema in the lower extremity bilaterally. mild erythema on the left lower extr, no warmth or tenderness. Neurological: Normal cognition. CN II-XII intact. Psych: Affect appropriate. Rest of the physical exam is non contributory - Patient Status Disposition: Home, Self-Care Condition: Good Functional capacity at discharge: independent ambulation Overall status at discharge: patient is back to baseline - Discharge Instructions Follow Up With: Kvng Hewitt MD [Primary Care Provider] - Forms: ED Satisfaction Letter - Diet and Activity Activity: resume usual activities as tolerated Diet: low salt diet
[2018-09-24 11:55] VITALS: BP 136/86
[2018-09-24 12:46] LABS: Calcium 8.5 mg/dL (8.6-10.3); Magnesium 2.1 mg/dL (1.6-2.6); Phosphorous 2.1 mg/dL (2.7-4.5); Potassium 4.1 mEq/L (3.5-5.1)
[2018-09-24] MEDS ORDERED: *HR* Warfarin 5 MG TABLET PO ONE (18:00)
--- NOTE | 2018-09-25 08:36 | Electrocardiograph Report ---
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
--- NOTE | 2018-09-25 08:39 | Electrocardiograph Report ---
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
== END 2018-09-24 16:19 | disposition home or self-care (01) | DRG 201 ==
LOC: 2NENU 19:01 → EMEROOARM 19:01 → 2NENU 21:25 → SUATTDRO 09-20 14:08
PROVIDERS: ADMIT Internal Medicine; ATTEND Internal Medicine

== ENCOUNTER 2018-10-04 17:22 | Observation (INO) ==
--- NOTE | 2018-10-04 18:00 | Emergency Department Note ---
Disposition Clinical Impression: Shortness of breath Pulmonary edema Qualifiers: Chronicity: acute Qualified Code(s): J81.0 - Acute pulmonary edema Chest pain Qualifiers: Chest pain type: unspecified Qualified Code(s): R07.9 - Chest pain, unspecified Disposition: Admitted As Inpatient Time of Disposition: 18:43 Chest Pain HPI - General Chief Complaint: ED Chest Pain Stated Complaint: CP / QUITA Time Seen by Provider: 10/04/18 17:28 Source: patient Mode of arrival: ambulatory Limitations: no limitations Vital Signs Reviewed: Yes Nursing Notes Reviewed: Yes - History of Present Illness HPI Narrative: 62 yo male presents from home with the CC of chest pain and shortness of breath. He has a PMHx of heart failure, renal failure, COPD and afib. He states he had some chest pain this morning around 3 am and described it as a dull ache in the center of his chest without radiation anywhere. He did not get sweaty, dizzy or nauseous with this pain. When he stood up the pain went away immediately. He had 2 more episodes of pain exactly like this throughout the day, and when he called his PCP he was told to come to the ED for further evaluation. He is currently chest pain free. He feels short of breath but states this is not abnormal for him. He denies fevers, chills, recent illness, abdominal pain, N/V/D/C or any problems with urination. He states he has noticed increased swelling of his legs. Severity scale (1-10): 7 - Related Data Home Medications Medication Instructions Recorded Confirmed Furosemide [Lasix] 20 mg PO BID 09/19/18 09/20/18 Tamsulosin HCl [Flomax] 0.4 mg PO DAILY 09/19/18 09/20/18 Terazosin HCl 2 mg PO DAILY 09/19/18 09/20/18 Warfarin [Coumadin] 7.5 mg PO MOTUWETHFR 09/19/18 09/20/18 dilTIAZem HCl [Diltiazem 24Hr Cd] 120 mg PO DAILY 09/19/18 09/20/18 Amlodipine Besylate 10 mg PO DAILY 09/20/18 09/20/18 Aspirin [Lo-Dose Aspirin EC] 81 mg PO DAILY 09/20/18 09/20/18 Lisinopril [Zestril] 20 mg PO DAILY 09/20/18 09/20/18 Spironolactone [Aldactone] 25 mg PO BID 09/20/18 09/20/18 Warfarin [Coumadin] 5 mg PO SUSA 09/20/18 09/20/18 Previous Rx's Medication Instructions Recorded Metoprolol XL (24 HR) Succ [Toprol 150 mg PO BID 30 Days #60 09/24/18 Xl] tab.er.24h Allergies Allergy/AdvReac Type Severity Reaction Status Date / Time No Known Allergies Allergy Verified 11/29/15 11:10 All systems ED: reviewed and negative except as stated. Review of Systems: As Per HPI Constitutional: Denies: fever, chills, weakness Eyes: Denies: vision change Cardiovascular: Reports: chest pain, dyspnea on exertion, edema. Denies: palpitations, syncope Respiratory: Reports: dyspnea. Denies: cough, wheezes Gastrointestinal: Denies: abdominal pain, nausea, vomiting, diarrhea Musculoskeletal: Denies: back pain Integumentary: Denies: rash Neurological: Denies: headache, weakness, numbness, paresthesias Psychiatric: Denies: anxiety Endocrine: Denies: fatigue Hematological/Lymphatic: Denies: easy bleeding Chest Pain PMH - Past Medical History Medical history: Reports: atrial fibrillation, CHF, hypertension Surgical history: Reports: no surgical history Psychiatric history: Reports: no psych history - Social History Smoking Status: Never smoker Alcohol use: Reports: none Drug use: Reports: none Physical Exam - General Limitations: no limitations General appearance: alert, in no apparent distress - Head Head exam: atraumatic, normocephalic - Eye Eye exam: Present: normal appearance, PERRL, EOMI - ENT ENT exam: normal exam, mucous membranes moist - Neck Neck exam: Present: normal inspection. Absent: tenderness, lymphadenopathy - Chest Chest inspection: Present: normal inspection - Respiratory Respiratory exam: Present: wheezes - Cardiovascular Cardiovascular exam: Present: regular rate, normal rhythm - Abdominal Exam Abdominal exam: Present: soft, Non-Tender. Absent: distention, guarding, rebound - Extremities Exam Extremities exam: Present: pedal edema (3+ pitting edema to tibial tuberosity). Absent: tenderness, calf tenderness - Neurological Exam Neurological exam: Present: alert, oriented X3 - Psychiatric Psychiatric exam: Present: normal affect - Skin Skin exam: Present: warm, dry, intact Course Vital Signs Temperature 97.7 F 10/04/18 17:25 Pulse Rate 84 10/04/18 17:25 Respiratory Rate 22 10/04/18 17:25 Blood Pressure 156/98 10/04/18 17:25 O2 Sat by Pulse Oximetry 95 10/04/18 17:25 Temperature 97.7 F 10/04/18 17:45 Pulse Rate 94 10/04/18 19:05 Respiratory Rate 20 10/04/18 19:05 Blood Pressure 132/89 10/04/18 19:05 O2 Sat by Pulse Oximetry 95 10/04/18 19:05 Oxygen Delivery Oxygen Delivery Room Air Chest Pain - MDM Narrative Medical decision making narrative: Due to this patient's comorbidities will do ACS rule out with CBC, BMP, troponin, BNP, PT/INR, EKG and CXR. 1830 - CBC showed an elevated WBC of 12. BMP with elevated Cre of 1.5 which is near baseline for the pt, and mild hyperkalemia of 5.2. BNP was elevated at 330. INR of 3 on Coumadin. Troponin wnl. CXR demonstrated pulmonary edema. EKG showed a fib but was otherwise unconcerning for any acute events. Will give a dose of IV lasix for fluid overload and admit for further cardiac workup. Hospitalist has been paged. [phone] - Dr. Jon has accepted the patient for CP rule out and IV diuretics. - Medical Records Medical records reviewed: Yes I reviewed the patient's medical records. - Lab Data Lab results reviewed: Yes I reviewed the patient's lab results. Result diagrams: 10/04/18 17:46 10/04/18 17:46 Lab Results 10/04/18 10/04/18 10/04/18 Range/Units 17:46 17:46 17:46 WBC 12.2 H (4.3-11.1) K/mcL RBC 5.93 H (4.19-5.50) M/mcL Hgb 17.3 H (12.9-16.9) g/dL Hct 53.7 H (37.5-50.1) % MCV 90.6 (83.0-100.0) fL MCH 29.2 (28.0-33.3) pg MCHC 32.2 (31.6-35.5) g/dL RDW 13.8 (11.5-14.5) % Plt Count 192 (140-400) K/mcL MPV 11.7 (9.4-12.4) fL Immature Gran % 0.6 (0-4) % Seg Neutrophils % 78.4 % Lymphocytes % 10.4 % Monocytes % 8.0 % Eosinophils % 2.1 % Basophils % 0.5 % Neutrophils # 9.5 H (1.6-8.9) K/mcL Lymphocytes # 1.3 (0.6-4.6) K/mcL Monocytes # 1.0 (0.0-1.3) K/mcL Eosinophils # 0.3 (0.0-0.6) K/mcL Basophils # 0.1 (0.0-0.2) K/mcL PT 34.3 H (9.4-12.1) Seconds INR 3.0 Sodium 140 (136-145) mEq/L Potassium 5.2 H (3.5-5.1) mEq/L Chloride 107 (98-107) mEq/L Carbon Dioxide 27 (23-29) mEq/L BUN 25 H (8-23) mg/dL Creatinine 1.56 H (0.70-1.30) mg/dL Est GFR ( Amer) 55 L (> 60) Est GFR (Non-Af Amer) 45 L (> 60) BUN/Creatinine Ratio 16 (6-26) Glucose 141 H (70-105) mg/dL Calculated Osmolality 297 (280-300) Calcium 8.7 (8.6-10.3) mg/dL Troponin I < 0.03 (< 0.04) ng/mL B-Natriuretic Peptide (Less than 100) pg/mL 10/04/18 Range/Units 17:46 WBC (4.3-11.1) K/mcL RBC (4.19-5.50) M/mcL Hgb (12.9-16.9) g/dL Hct (37.5-50.1) % MCV (83.0-100.0) fL MCH (28.0-33.3) pg MCHC (31.6-35.5) g/dL RDW (11.5-14.5) % Plt Count (140-400) K/mcL MPV (9.4-12.4) fL Immature Gran % (0-4) % Seg Neutrophils % % Lymphocytes % % Monocytes % % Eosinophils % % Basophils % % Neutrophils # (1.6-8.9) K/mcL Lymphocytes # (0.6-4.6) K/mcL Monocytes # (0.0-1.3) K/mcL Eosinophils # (0.0-0.6) K/mcL Basophils # (0.0-0.2) K/mcL PT (9.4-12.1) Seconds INR Sodium (136-145) mEq/L Potassium (3.5-5.1) mEq/L Chloride (98-107) mEq/L Carbon Dioxide (23-29) mEq/L BUN (8-23) mg/dL Creatinine (0.70-1.30) mg/dL Est GFR ( Amer) (> 60) Est GFR (Non-Af Amer) (> 60) BUN/Creatinine Ratio (6-26) Glucose (70-105) mg/dL Calculated Osmolality (280-300) Calcium (8.6-10.3) mg/dL Troponin I (< 0.04) ng/mL B-Natriuretic Peptide 330 H (Less than 100) pg/mL - Radiology Data Radiology results reviewed: Yes I reviewed the patient's radiology results. - EKG Data EKG attestation: Yes I reviewed and interpreted this EKG. EKG results narrative: EKG done at 1731 on 10/04/2018 HR 71 bpm, QRS duration 106, QT 373, QTc 396 A fib without any ST segment elevations or depressions. No signs of acute ischemia. Heart Score - Score History: Slightly Suspicious EKG: Normal Age: 45-65 Risk Factors: Equal/Greater than 3 risk factor or history of atherosclerotic disease Troponin: Less than normal limit HEART Score Total: 3
[2018-10-04 18:03] LABS: Basophils # 0.1 K/mcL (0.0-0.2); Basophils % 0.5 %; Eosinophils # 0.3 K/mcL (0.0-0.6); Eosinophils % 2.1 %; Hematocrit 53.7 % (37.5-50.1); Hemoglobin 17.3 g/dL (12.9-16.9); Immature Granulocytes % 0.6 % (0-4); Lymphocytes # 1.3 K/mcL (0.6-4.6); Lymphocytes % 10.4 %; Mean Corpuscular HGB Conc 32.2 g/dL (31.6-35.5); Mean Corpuscular Hemoglobin 29.2 pg (28.0-33.3); Mean Corpuscular Volume 90.6 fL (83.0-100.0); Mean Platelet Volume 11.7 fL (9.4-12.4); Neutrophils # 9.5 K/mcL (1.6-8.9); Platelet Count 192 K/mcL (140-400); Red Blood Count 5.93 M/mcL (4.19-5.50); Red Cell Distribution Width 13.8 % (11.5-14.5); Segmented Neutrophils % 78.4 %
[2018-10-04 18:10] LABS: Prothrombin Time 34.3 Seconds (9.4-12.1)
[2018-10-04 18:19] LABS: BUN/Creatinine Ratio 16 (6-26); Blood Urea Nitrogen 25 mg/dL (8-23); Calcium 8.7 mg/dL (8.6-10.3); Carbon Dioxide 27 mEq/L (23-29); Chloride 107 mEq/L (98-107); Glucose 141 mg/dL (70-105); Osmolality,Calculated 297 (280-300); Potassium 5.2 mEq/L (3.5-5.1); Sodium 140 mEq/L (136-145); eGFR For Non-African Americans 45 (> 60)
[2018-10-04 18:21] LABS: Troponin I < 0.03 ng/mL (< 0.04)
[2018-10-04] MEDS ORDERED: Furosemide 40 MG/4 ML VIAL IVP ONE ×2 (18:29→22:00)
--- NOTE | 2018-10-04 18:55 | Emergency Department Note ---
Disposition Clinical Impression: Shortness of breath Pulmonary edema Qualifiers: Chronicity: acute Qualified Code(s): J81.0 - Acute pulmonary edema Chest pain Qualifiers: Chest pain type: unspecified Qualified Code(s): R07.9 - Chest pain, unspecified Disposition: Admitted As Inpatient Referrals: Kvng Hewitt MD [Primary Care Provider] - Forms: ED Satisfaction Letter General Adult HPI - General Chief complaint: ED Chest Pain Stated complaint: CP / QUITA Time Seen by Provider: 10/04/18 17:28 Source: patient Mode of arrival: ambulatory Limitations: no limitations - History of Present Illness Pain Scale: 7 - Related Data Home Medications Medication Instructions Recorded Confirmed Furosemide [Lasix] 20 mg PO BID 09/19/18 09/20/18 Tamsulosin HCl [Flomax] 0.4 mg PO DAILY 09/19/18 09/20/18 Terazosin HCl 2 mg PO DAILY 09/19/18 09/20/18 Warfarin [Coumadin] 7.5 mg PO MOTUWETHFR 09/19/18 09/20/18 dilTIAZem HCl [Diltiazem 24Hr Cd] 120 mg PO DAILY 09/19/18 09/20/18 Amlodipine Besylate 10 mg PO DAILY 09/20/18 09/20/18 Aspirin [Lo-Dose Aspirin EC] 81 mg PO DAILY 09/20/18 09/20/18 Lisinopril [Zestril] 20 mg PO DAILY 09/20/18 09/20/18 Spironolactone [Aldactone] 25 mg PO BID 09/20/18 09/20/18 Warfarin [Coumadin] 5 mg PO SUSA 09/20/18 09/20/18 Previous Rx's Medication Instructions Recorded Metoprolol XL (24 HR) Succ [Toprol 150 mg PO BID 30 Days #60 09/24/18 Xl] tab.er.24h Allergies Allergy/AdvReac Type Severity Reaction Status Date / Time No Known Allergies Allergy Verified 11/29/15 11:10 Constitutional: Denies: fever, chills, weakness Eyes: Denies: vision change Cardiovascular: Reports: chest pain, dyspnea on exertion, edema. Denies: palpitations, syncope Respiratory: Reports: dyspnea. Denies: cough, wheezes Gastrointestinal: Denies: abdominal pain, nausea, vomiting, diarrhea Musculoskeletal: Denies: back pain Integumentary: Denies: rash Neurological: Denies: headache, weakness, numbness, paresthesias Psychiatric: Denies: anxiety Endocrine: Denies: fatigue Hematological/Lymphatic: Denies: easy bleeding Past Medical History - Past Medical History Medical history: Reports: atrial fibrillation, CHF, hypertension Surgical history: Reports: no surgical history Psychiatric history: Reports: no psych history - Social History Smoking Status: Never smoker Smokeless Tobacco Status: No Alcohol use: Reports: none Drug use: Reports: none Physical Exam - General Limitations: no limitations General appearance: alert, in no apparent distress Course Vital Signs Temperature 97.7 F 10/04/18 17:25 Pulse Rate 84 10/04/18 17:25 Respiratory Rate 22 10/04/18 17:25 Blood Pressure 156/98 10/04/18 17:25 O2 Sat by Pulse Oximetry 95 10/04/18 17:25 Temperature 97.7 F 10/04/18 17:45 Pulse Rate 92 10/04/18 17:45 Respiratory Rate 17 10/04/18 17:45 Blood Pressure 125/101 10/04/18 18:07 O2 Sat by Pulse Oximetry 95 10/04/18 17:55 Oxygen Delivery Oxygen Delivery Room Air Medical Decision Making - Lab Data Result diagrams: 10/04/18 17:46 10/04/18 17:46 Lab Results 10/04/18 10/04/18 10/04/18 Range/Units 17:46 17:46 17:46 WBC 12.2 H (4.3-11.1) K/mcL RBC 5.93 H (4.19-5.50) M/mcL Hgb 17.3 H (12.9-16.9) g/dL Hct 53.7 H (37.5-50.1) % MCV 90.6 (83.0-100.0) fL MCH 29.2 (28.0-33.3) pg MCHC 32.2 (31.6-35.5) g/dL RDW 13.8 (11.5-14.5) % Plt Count 192 (140-400) K/mcL MPV 11.7 (9.4-12.4) fL Immature Gran % 0.6 (0-4) % Seg Neutrophils % 78.4 % Lymphocytes % 10.4 % Monocytes % 8.0 % Eosinophils % 2.1 % Basophils % 0.5 % Neutrophils # 9.5 H (1.6-8.9) K/mcL Lymphocytes # 1.3 (0.6-4.6) K/mcL Monocytes # 1.0 (0.0-1.3) K/mcL Eosinophils # 0.3 (0.0-0.6) K/mcL Basophils # 0.1 (0.0-0.2) K/mcL PT 34.3 H (9.4-12.1) Seconds INR 3.0 Sodium 140 (136-145) mEq/L Potassium 5.2 H (3.5-5.1) mEq/L Chloride 107 (98-107) mEq/L Carbon Dioxide 27 (23-29) mEq/L BUN 25 H (8-23) mg/dL Creatinine 1.56 H (0.70-1.30) mg/dL Est GFR ( Amer) 55 L (> 60) Est GFR (Non-Af Amer) 45 L (> 60) BUN/Creatinine Ratio 16 (6-26) Glucose 141 H (70-105) mg/dL Calculated Osmolality 297 (280-300) Calcium 8.7 (8.6-10.3) mg/dL Troponin I < 0.03 (< 0.04) ng/mL B-Natriuretic Peptide (Less than 100) pg/mL 10/04/18 Range/Units 17:46 WBC (4.3-11.1) K/mcL RBC (4.19-5.50) M/mcL Hgb (12.9-16.9) g/dL Hct (37.5-50.1) % MCV (83.0-100.0) fL MCH (28.0-33.3) pg MCHC (31.6-35.5) g/dL RDW (11.5-14.5) % Plt Count (140-400) K/mcL MPV (9.4-12.4) fL Immature Gran % (0-4) % Seg Neutrophils % % Lymphocytes % % Monocytes % % Eosinophils % % Basophils % % Neutrophils # (1.6-8.9) K/mcL Lymphocytes # (0.6-4.6) K/mcL Monocytes # (0.0-1.3) K/mcL Eosinophils # (0.0-0.6) K/mcL Basophils # (0.0-0.2) K/mcL PT (9.4-12.1) Seconds INR Sodium (136-145) mEq/L Potassium (3.5-5.1) mEq/L Chloride (98-107) mEq/L Carbon Dioxide (23-29) mEq/L BUN (8-23) mg/dL Creatinine (0.70-1.30) mg/dL Est GFR ( Amer) (> 60) Est GFR (Non-Af Amer) (> 60) BUN/Creatinine Ratio (6-26) Glucose (70-105) mg/dL Calculated Osmolality (280-300) Calcium (8.6-10.3) mg/dL Troponin I (< 0.04) ng/mL B-Natriuretic Peptide 330 H (Less than 100) pg/mL Attestation Statement - Attestation Attestation: I examined this patient and my medical decision-making was reviewed with the Resident Physician. I agree with the documented findings, disposition and treatment plan as described except to the extent set forth below. 62 yea kevin male presnts to the ED with complaints of chest pain with history of CHF and elevated BNP With mild hyperkalemia and pulmonary edema on CXR. We will admit to medicine.
[2018-10-04] MEDS ORDERED: Dextrose Gel 15 GM/37.5 ML TUBE PO PRN ×2 (20:14)
--- NOTE | 2018-10-04 20:30 | Internal Med History&Physical ---
Date of Encounter: 10/04/18 Time of Encounter: 20:28 Internal Medicine - H&P: HPI Chief complaint: shortness of breath Admitted From: Home Plans for Post Hospital Care: Home History of present illness: Elvis Limon is a 62-year-old morbidly obese male with a history of BPH, diabetes, hypertension, atrial fibrillation and heart failure who was recently discharged from here after a one-week hospitalization for A. fib with RVR that ultimately underwent ALMA DELIA cardioversion with only temporary relief and was dis charged on rate control medications. He presents now to the ER complaining of chest pain and acute onset shortness of breath that commenced earlier this morning while in bed feeling as though fluid had accumulated in his lungs. Once he got up he says that the symptoms improved but it recurred on 2 other occasions during the day and contacted his PCP who advised that he come to the ER for further evaluation. The ER he was seen to be in atrial fibrillation and chest x-ray revealed signs of pulmonary vascular congestion and edema. He was given 1 dose of 40 mg furosemide and at this time states that he feels much better, stating that he has no chest pain and is comfortable on room air satura ting in the mid 90s. He reports adherence to medications but states that when he was discharged he was not advised to make any dietary changes and therefore has been eating haphazardly. Past Med Surg Social Fam HX - Past Medical History Medical history: atrial fibrillation, CHF, hypertension Psychiatric history: no psych history - Past Surgical History Surgical History: no surgical history - Social History Smoking Status: Never smoker Smokeless Tobacco Status: No Alcohol use: none Drug use: none - Family History Mother Living Status: Still Living Hx Family Cardiac Disorders: No Hx Family Respiratory Disorders: No Hx Family Endocrine Disorder: Yes (dm) Internal Medicine - H&P: Meds Furosemide [Lasix] 20 mg PO BID 09/19/18 [History] Tamsulosin HCl [Flomax] 0.4 mg PO DAILY 09/19/18 [History] Terazosin HCl 2 mg PO DAILY 09/19/18 [History] Warfarin [Coumadin] 7.5 mg PO MOTUWETHFR 09/19/18 [History] dilTIAZem HCl [Diltiazem 24Hr Cd] 120 mg PO DAILY 09/19/18 [History] Amlodipine Besylate 10 mg PO DAILY 09/20/18 [History] Aspirin [Lo-Dose Aspirin EC] 81 mg PO DAILY 09/20/18 [History] Lisinopril [Zestril] 20 mg PO DAILY 09/20/18 [History] Spironolactone [Aldactone] 25 mg PO BID 09/20/18 [History] Warfarin [Coumadin] 5 mg PO SUSA 09/20/18 [History] Metoprolol XL (24 HR) Succ [Toprol Xl] 150 mg PO BID 30 Days #60 tab.er.24h 09/24/18 [Rx] Allergy/AdvReac Type Severity Reaction Status Date / Time No Known Allergies Allergy Verified 11/29/15 11:10 All Systems PM: A 10-system review of systems was performed and is negative for pertinent findings except as documented above in the HPI. - Constitutional Vitals: Temp Pulse Resp BP Pulse Ox 97.7 F 94 18 128/88 95 10/04/18 17:45 10/04/18 19:05 10/04/18 20:20 10/04/18 20:20 10/04/18 19:05 Exam: Vitals: Reviewed General: Obese white male sitting up in bed in no acute distress Skin: Warm and supple. HEENT: Moist mucous membranes. No conjunctivae pallor. Neck: No lymphadenopathy. Short and thick. Chest: Diminished thoracic expansion with reduced breath sounds and fine rales in both bases. Heart: Irregularly irregular. Abdomen: Protuberant but nontender to palpation. Extremities: 3+ pitting edema in both lower legs with the right leg cir cumferentially larger than the left. Neurological: Awake, alert and oriented to person, place and time. No focal deficits. Psych: Affect appropriate. Internal Med - H&P Results - Labs CBC & Chem 7: 10/04/18 17:46 10/04/18 17:46 Labs: Short CBC 10/04/18 Range/Units 17:46 WBC 12.2 H (4.3-11.1) K/mcL Hgb 17.3 H (12.9-16.9) g/dL Hct 53.7 H (37.5-50.1) % Plt Count 192 (140-400) K/mcL Neutrophils # 9.5 H (1.6-8.9) K/mcL BMP 10/04/18 17:46 Sodium 140 Potassium 5.2 H Chloride 107 Carbon Dioxide 27 BUN 25 H Creatinine 1.56 H Glucose 141 H Calcium 8.7 Cardiac Enzymes 10/04/18 Range/Units 17:46 Troponin I < 0.03 (< 0.04) ng/mL - Impressions ITS Impressions Chest X-Ray 10/04/18 17:27 IMPRESSION: Cardiomegaly and development of pulmonary edema. D/ / Matthew Acuna MD / Matthew Acuna MD Interpreting Provider: Matthew Acuna MD - Assessment and plan (1) Shortness of breath Current Visit: Yes Status: Acute Assessment and plan: Concern for flash pulmonary edema/congestive heart failure in the setting of low dose of diuretics and dietary indiscretions. He improved with furosemide. Will give a total dose of 80mg tonight given his large body habitus and significant edema. Will continue with a total of 40mg daily as of tomorrow. Will monitor on telemetry. Fluid and salt restriction advised. Will consider Bipap/CPAP overnight. (2) Chest pain Current Visit: Yes Status: Acute Assessment and plan: Will continue antiplatelet therapy. It is likely secondary to discomfort from the pulmonary edema rather than ACS however will monitor on telemetry and obtain a repeat troponin for further assessment. Qualifiers: Chest pain type: unspecified Qualified Code(s): R07.9 - Chest pain, unspecified (3) Afib Current Visit: Yes Status: Chronic Assessment and plan: The patient is currently rate controlled with a therapeutic INR which is a testament to his adherence to medications. Will continue metoprolol and dilt iazem as previously Rx and monitor on telemetry. Continue warfarin per pharmacy dosing. Qualifiers: Atrial fibrillation type: chronic Qualified Code(s): I48.2 - Chronic atrial fibrillation (4) BPH (benign prostatic hyperplasia) Current Visit: Yes Status: Chronic Assessment and plan: Continue daily terazosin. Qualifiers: Lower urinary tract symptom presence: unspecified whether lower urinary tract symptoms present Qualified Code(s): N40.0 - Benign prostatic hyperplasia without lower urinary tract symptoms (5) CKD (chronic kidney disease) Current Visit: Yes Status: Chronic Assessment and plan: Stable. Will monitor closely. Qualifiers: Chronic kidney disease stage: stage 3 (moderate) Qualified Code(s): N18.3 - Chronic kidney disease, stage 3 (moderate) (6) Diabetes Current Visit: Yes Status: Chronic Assessment and plan: Poorly controlled with A1C of 7.7%. Will hold metformin for now given his serum creatinine. Start insulin sliding scale during hospitalization. A discussion should be held in regards to this as metformin at this creatinine level is not advisable. Qualifiers: Diabetes mellitus type: type 2 Diabetes mellitus moth exterminator insulin use: without moth exterminator use Diabetes mellitus complication status: with unspecified complications Qualified Code(s): E11.8 - Type 2 diabetes mellitus with unspecified complications (7) Hypertension Current Visit: Yes Status: Chronic Assessment and plan: Will resume oral antihypertensives. Qualifiers: Hypertension type: essential hypertension Qualified Code(s): I10 - Essential (primary) hypertension - Time Spent With Patient Total time spent is greater than 50% in coordination of care (as documented) at patient's floor/unit and/or counseling patient: Greater than 35 minutes
[2018-10-04] MEDS: Insulin LISPRO 300 UNITS/3 ML VIAL SQ SCH (21:30)
[2018-10-04] MEDS ORDERED: *HR* Metoprolol 5 MG/5 ML VIAL IVP ONE ×2 (23:59)
[2018-10-05 04:36] LABS: Basophils # 0.1 K/mcL (0.0-0.2); Basophils % 0.7 %; Eosinophils # 0.3 K/mcL (0.0-0.6); Eosinophils % 2.3 %; Hematocrit 49.7 % (37.5-50.1); Immature Granulocytes % 0.8 % (0-4); Lymphocytes # 1.7 K/mcL (0.6-4.6); Lymphocytes % 14.3 %; Mean Corpuscular HGB Conc 34.2 g/dL (31.6-35.5); Mean Corpuscular Hemoglobin 29.8 pg (28.0-33.3); Mean Corpuscular Volume 87.2 fL (83.0-100.0); Mean Platelet Volume 11.7 fL (9.4-12.4); Monocytes # 0.9 K/mcL (0.0-1.3); Monocytes % 7.9 %; Neutrophils # 8.7 K/mcL (1.6-8.9); Platelet Count 188 K/mcL (140-400); Red Cell Distribution Width 14.3 % (11.5-14.5)
[2018-10-05 04:43] LABS: INR 2.6; Prothrombin Time 29.5 Seconds (9.4-12.1)
[2018-10-05 04:58] LABS: Troponin I < 0.03 ng/mL (< 0.04)
[2018-10-05 05:01] LABS: BUN/Creatinine Ratio 16 (6-26); Blood Urea Nitrogen 25 mg/dL (8-23); Calcium 8.9 mg/dL (8.6-10.3); Carbon Dioxide 26 mEq/L (23-29); Chloride 104 mEq/L (98-107); Glucose 132 mg/dL (70-105); Osmolality,Calculated 296 (280-300); Potassium 4.1 mEq/L (3.5-5.1); Sodium 140 mEq/L (136-145); eGFR For Non-African Americans 45 (> 60)
[2018-10-05] MEDS: amLODIPine 5 MG TABLET PO SCH (08:46)
[2018-10-05] MEDS: Lisinopril 20 MG TABLET PO SCH (08:46)
[2018-10-05] MEDS: Metoprolol XL (24 HR) Succ 50 MG TAB.ER.24H PO SCH (08:46)
[2018-10-05] MEDS: Diltiazem CD (24hr) 120 MG CAPSULE PO SCH (08:47)
[2018-10-05] MEDS: Aspirin Enteric Coated 81 MG Tablet PO SCH (08:47)
[2018-10-05] MEDS: Spironolactone 25 MG TABLET PO SCH (08:47)
[2018-10-05] MEDS: Furosemide 20 MG/2 ML VIAL IVP SCH ×2 (08:48→19:46)
[2018-10-05] MEDS: Insulin LISPRO 300 UNITS/3 ML VIAL SQ SCH ×4 (08:48→20:48)
--- NOTE | 2018-10-05 13:27 | Internal Med Progress Note ---
Hospitalist Progress Note - Encounter Date of Encounter: 10/05/18 Time of Encounter: 13:26 - Subjective Interval History: Patient seen and examined at bedside today. He reports that he is still more short of breath at baseline and is continuing to have bilateral lower extremity edema. - Exam Vitals: Temp Pulse Resp BP Pulse Ox 97.9 F 94 19 128/63 94 10/05/18 11:29 10/05/18 11:29 10/05/18 11:29 10/05/18 11:29 10/05/18 11:29 Exam: Vitals: Reviewed General: Obese white male sitting up in bed in no acute distress Skin: Warm and supple. HEENT: Moist mucous membranes. No conjunctivae pallor. Neck: No lymphadenopathy. Short and thick. Chest: Diminished thoracic expansion with reduced breath sounds and fine rales in both bases persist. Heart: Irregularly irregular. Abdomen: Protuberant but nontender to palpation. Extremities: 2+ pitting edema in both lower legs with the right leg circumferentially larger than the left. Neurological: Awake, alert and oriented to person, place and time. No focal deficits. Psych: Affect appropriate. - Assessment and Plan (1) BPH (benign prostatic hyperplasia) Current Visit: Yes Status: Chronic Assessment and Plan: Continue terazosin (2) Hypertension Current Visit: Yes Status: Chronic Assessment and Plan: History of hypertension, blood pressure stable, resume anti-HTN medications and monitor (3) Diabetes Current Visit: Yes Status: Chronic Assessment and Plan: Poorly controlled with A1C of 7.7%. FSBG improving with sliding scale insulin Closely monitor Continue ACTH is Accu-Cheks as well as diabetic diet Diet provided education on multiple occasions regarding diabetic diet as well as low salt low fat cardiac fairly diet Oral hypoglycemic agents are currently being held will need to be resumed at discharge (4) CKD (chronic kidney disease) Current Visit: Yes Status: Chronic Assessment and Plan: History of CKD Renal function at baseline Continue to avoid nephrotoxins and monitor renal function (5) Chest pain Current Visit: Yes Status: Acute Assessment and Plan: Chest pain is resolved 6 most likely result of pulmonary edema rather than ACS No events on telemetry noted, continue telemetry Continue cardiac medications including antiplatelets (6) Shortness of breath Current Visit: Yes Status: Acute Assessment and Plan: History of CHF Presents with weakness, bilateral lower extremity edema and shortness of breath Condition improved with diuretics Continues to have mild dyspnea with exertion, bilateral extremities with 1+ pitting edema persistent Continuous diuretics this time Continue strict I's and O's and daily weight Discussed dietary changes including low salt diet and fluid or stricture Overall, clinically the patient is improving and is resting comfortable on room air at rest (7) Afib Current Visit: Yes Status: Chronic Assessment and Plan: History of A. fib Currently rate control Therapeutic INR Continue beta gabe, diltiazem, warfarin Continue monitor on telemetry - Time Spent with Patient Total time spent is greater than 50% in coordination of care (as documented) at patient's floor/unit and/or counseling patient: less than 15 minutes Plan of Care Discussed with: patient Internal Medicine: Result - Labs CBC & Chem 7: 10/05/18 04:08 10/05/18 04:08 Labs: Short CBC 10/04/18 10/05/18 Range/Units 17:46 04:08 WBC 12.2 H 11.7 H (4.3-11.1) K/mcL Hgb 17.3 H 17.0 H (12.9-16.9) g/dL Hct 53.7 H 49.7 (37.5-50.1) % Plt Count 192 188 (140-400) K/mcL Neutrophils # 9.5 H 8.7 (1.6-8.9) K/mcL BMP 10/04/18 10/05/18 17:46 04:08 Sodium 140 140 Potassium 5.2 H 4.1 Chloride 107 104 Carbon Dioxide 27 26 BUN 25 H 25 H Creatinine 1.56 H 1.56 H Glucose 141 H 132 H Calcium 8.7 8.9 Cardiac Enzymes 10/04/18 10/05/18 Range/Units 17:46 04:08 Troponin I < 0.03 < 0.03 (< 0.04) ng/mL - ABG Interpretation ABG results: PT/INR, D-dimer PT 29.5 Seconds (9.4-12.1) H 10/05/18 04:08 - Impressions Impressions Chest X-Ray 10/04/18 17:27 IMPRESSION: Cardiomegaly and development of pulmonary edema. D/ / Matthew Acuna MD / Matthew Acuna MD Interpreting Provider: Matthew Acuna MD Consult Discharge Plan - Plan Referrals: Kvng Hewitt MD [Primary Care Provider] - (1) BPH (benign prostatic hyperplasia) Qualifiers: Lower urinary tract symptom presence: unspecified whether lower urinary tract symptoms present Qualified Code(s): N40.0 - Benign prostatic hyperplasia without lower urinary tract symptoms (2) Hypertension Qualifiers: Hypertension type: essential hypertension Qualified Code(s): I10 - Essential (primary) hypertension (3) Diabetes Qualifiers: Diabetes mellitus type: type 2 Diabetes mellitus penitentiary insulin use: without penitentiary use Diabetes mellitus complication status: with unspecified complications Qualified Code(s): E11.8 - Type 2 diabetes mellitus with unspec ified complications (4) CKD (chronic kidney disease) Qualifiers: Chronic kidney disease stage: stage 3 (moderate) Qualified Code(s): N18.3 - Chronic kidney disease, stage 3 (moderate) (5) Chest pain Qualifiers: Chest pain type: unspecified Qualified Code(s): R07.9 - Chest pain, unspeci fied (7) Afib Qualifiers: Atrial fibrillation type: chronic Qualified Code(s): I48.2 - Chronic atrial fibrillation
--- NOTE | 2018-10-05 14:15 | Electrocardiograph Report ---
[address] [address] Test Date: 2018-10-04 Pat Name: Elvis Limon Department: [id number] Room: 3B Gender: M [employer]: GLORIA : 1955 Requested By: Melissa Galaviz Order Number: [id number] Reading MD: Jodi Lane Measurements Intervals [place] Rate: 71 P: CT: 0 QRS: 84 QRSD: 106 T: 69 QT: 373 QTc: 396 Interpretive Statements ATRIAL FIBRILLATION ABNORMAL RHYTHM ECG Electronically Signed On 10-05-2018 14:13:[address]
[2018-10-05] MEDS ORDERED: *HR* Warfarin 5 MG TABLET PO ONE (18:00)
[2018-10-05] MEDS ORDERED: Warfarin perPT PO PRN (18:00)
[2018-10-06 04:34] LABS: INR 2.1; Prothrombin Time 23.3 Seconds (9.4-12.1)
[2018-10-06] MEDS: Insulin LISPRO 300 UNITS/3 ML VIAL SQ SCH ×2 (08:41→11:46)
[2018-10-06] MEDS: Metoprolol XL (24 HR) Succ 50 MG TAB.ER.24H PO SCH (08:49)
[2018-10-06] MEDS: Furosemide 20 MG/2 ML VIAL IVP SCH (08:50)
[2018-10-06] MEDS: Aspirin Enteric Coated 81 MG Tablet PO SCH (08:50)
[2018-10-06] MEDS: Lisinopril 20 MG TABLET PO SCH (08:50)
[2018-10-06] MEDS: amLODIPine 5 MG TABLET PO SCH (08:50)
[2018-10-06] MEDS: Diltiazem CD (24hr) 120 MG CAPSULE PO SCH (08:50)
[2018-10-06] MEDS: Spironolactone 25 MG TABLET PO SCH (08:50)
[2018-10-06 11:01] LABS: Hemoglobin 18.3 g/dL (12.9-16.9); Mean Corpuscular HGB Conc 32.9 g/dL (31.6-35.5); Mean Corpuscular Hemoglobin 29.2 pg (28.0-33.3); Mean Platelet Volume 11.6 fL (9.4-12.4); Platelet Count 176 K/mcL (140-400); Red Blood Count 6.26 M/mcL (4.19-5.50)
[2018-10-06 11:03] LABS: Hematocrit 55.7 % (37.5-50.1)
[2018-10-06 11:18] LABS: Calcium 9.2 mg/dL (8.6-10.3); Potassium 4.3 mEq/L (3.5-5.1)
--- NOTE | 2018-10-06 11:19 | Discharge Summary ---
- NOTES TO OUTPATIENT PROVIDER Notes to Outpatient Provider: Fluid overload and CHF exacerbation. Instructed to take Lasix PO 40mg BID x 3 days, then take Lasix PO 40mg QD. He has also been instructed to f/u with PCP in 1-week of d/c. Orders not resulted at time of discharge: Pending orders 10/06/18 10:43 Basic Metabolic Panel Routine 10/07/18 04:00 Basic Metabolic Panel AM 0400 CBC no Diff [Complete Blood Count w/o Diff] [HEME] AM 0400 PT/INR [Prothrombin Time INR] [COAG] AM 0400 Date of Encounter: 10/06/18 Time of Encounter: 11:17 - Discharge Diagnosis (1) Shortness of breath Priority: Primary Status: Resolved Assessment and Plan: AE CHF with elevated BNP and pulmonary edema on CXR resolved with diuretics increased diuretics at d/c I believe renal function playing a part in fluid overload as well f/u with PCP (2) Acute on chronic congestive heart failure Priority: Secondary Status: Acute Qualifiers: Heart failure type: combined systolic and diastolic Qualified Code(s): I50.43 - Acute on chronic combined systolic (congestive) and diastolic (congestive) heart failure (3) BPH (benign prostatic hyperplasia) Priority: Secondary Status: Chronic Qualifiers: Lower urinary tract symptom presence: unspecified whether lower urinary tract symptoms present Qualified Code(s): N40.0 - Benign prostatic hyperplasia without lower urinary tract symptoms (4) Hypertension Priority: Secondary Status: Chronic Qualifiers: Hypertension type: essential hypertension Qualified Code(s): I10 - Essential (primary) hypertension (5) Diabetes Priority: Secondary Status: Chronic Qualifiers: Diabetes mellitus type: type 2 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 use: without long-term use Diabetes mellitus complication status: with unspecified complications Qualified Code(s): E11.8 - Type 2 diabetes mellitus with unspecified complications (6) CKD (chronic kidney disease) Priority: Secondary Status: Chronic Qualifiers: Chronic kidney disease stage: stage 3 (moderate) Qualified Code(s): N18.3 - Chronic kidney disease, stage 3 (moderate) (7) Chest pain Priority: Secondary Status: Resolved Assessment and Plan: most likely from CHF exacerbation resolved and has not returned this admission Troponins negative x3 EKG without acute changes Qualifiers: Chest pain type: unspecified Qualified Code(s): R07.9 - Chest pain, unspecified (8) Afib Priority: Secondary Status: Chronic Qualifiers: Atrial fibrillation type: chronic Qualified Code(s): I48.2 - Chronic atrial fibrillation Hospital course: Mr. Limon is a 62 year old male who is morbidly obese with a history of BPH, DM, HTN, A. fib, heart failure and A. fib RVR. He was admitted with acute onset shortness of breath, bilateral extremity swelling and weight gain. Diagnosis of CHF with chest x-ray revealing pulmonary vascular congestion and elevated BNP as well. Treated with IV diuretics and breathing dramatically improved. He is now resting comfortably on room air without respiratory distress and able to ambulate throughout his room and perform regular activities without distress. Bilateral lower extremity edema is continuing to improve as well. He is being sent home with Lasix by mouth 40 mg twice a day 3 days and I am increasing his Lasix to 40 mg daily thereafter. He has been instructed to follow-up with PCP for further monitoring her renal function discussed continued Lasix at increased dose. Also, I have discussed the patient weight loss, lifestyle modifications, low sodium diet, fluid restriction, and monitoring his weight daily. Discharge discussed with: patient, nurse - Time Spent with Patient Total time spent providing and/or coordinating discharge services: Less than 30 minutes - Discharge Medications Home Medications: Tamsulosin HCl [Flomax] 0.4 mg PO DAILY 09/19/18 [History] Terazosin HCl 2 mg PO DAILY 09/19/18 [History] Warfarin [Coumadin] 7.5 mg PO MOTUWETHFR 09/19/18 [History] dilTIAZem HCl [Diltiazem 24Hr Cd] 120 mg PO DAILY 09/19/18 [History] Amlodipine Besylate 10 mg PO DAILY 09/20/18 [History] Aspirin [Lo-Dose Aspirin EC] 81 mg PO DAILY 09/20/18 [History] Lisinopril [Zestril] 20 mg PO DAILY 09/20/18 [History] Spironolactone [Aldactone] 25 mg PO BID 09/20/18 [History] Warfarin [Coumadin] 5 mg PO SUSA 09/20/18 [History] Metoprolol XL (24 HR) Succ [Toprol Xl] 150 mg PO BID 30 Days #60 tab.er.24h 09/24/18 [Rx] Furosemide [Lasix] 40 mg PO BID 3 Days #6 tab 10/06/18 [Rx] Furosemide [Lasix] 40 mg PO DAILY 30 Days #30 tab 10/06/18 [Rx] Allergies/Adverse Reactions: Allergy/AdvReac Type Severity Reaction Status Date / Time No Known Allergies Allergy Verified 11/29/15 11:10 Date of admission: 10/04/18 19:34 Primary care physician: Kvng Hewitt MD Discharging clinician: Rell Carranza Anticipated date of discharge: 10/06/18 - Constitutional Vitals: Temp Pulse Resp BP Pulse Ox 98.9 F 101 19 113/82 95 10/06/18 07:26 10/06/18 07:26 10/06/18 07:26 10/06/18 07:26 10/06/18 08:53 General appearance: Present: A&O X 3 Exam: SEE EXAM - Head Head exam: Present: atraumatic, normocephalic - Eye Eye exam: Present: PERRL, conjuntiva pink, sclera anicteric Pupils: Present: PERRL - Neck Neck exam general surgery: Present: supple, trachea midline. Absent: lymphadenopathy - Respiratory Respiratory exam: Present: CTAB. Absent: accessory muscle use, rales, rhonchi, wheezes - Cardiovascular Cardiovascular exam: Present: RRR, +S1, +S2. Absent: diastolic murmur, gallop, rubs, systolic murmur - GI/Abdominal GI/Abdominal exam: Present: normal bowel sounds, soft, no peritoneal signs. Absent: distended, tenderness - Extremities Exam Extremities exam: Present: normal capillary refill, pedal edema (BLE edema and pedal edema, 1+ pitting), warm, radial pulses palpable and symmetrical. Absent: calf tenderness, cyanotic, normal inspection - Neurological Exam Neurological exam: Present: CN II-XII intact, oriented X3, no focal deficits. Absent: pronater drift, facial droop, speech deficit - Skin Skin exam: Present: dry, intact - Patient Status Disposition: Home, Self-Care Condition: Fair Functional capacity at discharge: independent ambulation Overall status at discharge: patient is progressing back to baseline - Discharge Instructions Instructions: Heart Failure (DC) Follow Up With: Kvng Hewitt MD [Primary Care Provider] - 10/21/18 10:00 am () - Diet and Activity Activity: increase activity as tolerated, resume usual activities as tolerated Diet: diabetic diet, low fat, low cholesterol, low salt diet
[2018-10-06 11:25] VITALS: BP 104/60
[2018-10-06] MEDS ORDERED: *HR* Warfarin 7.5 MG TABLET PO ONE (18:00)
== END 2018-10-06 13:02 | disposition home or self-care (01) ==
LOC: 3BNU 17:22 → EMEROOARM 17:22 → SUATTDRO 19:34 → 3BNU 20:30
PROVIDERS: ADMIT Internal Medicine; ATTEND Nurse Practitioner

== ENCOUNTER 2021-03-11 03:28 | Inpatient (IN) ==
[2021-03-11] MEDS ORDERED: Isovue-370 500 ML BOTTLE IVP ONE (03:41)
[2021-03-11 04:26] LABS: Basophils # 0.1 K/mcL (0.0-0.2); Basophils % 0.4 %; Eosinophils # 0.1 K/mcL (0.0-0.6); Eosinophils % 0.4 %; Hematocrit 46.4 % (37.5-50.1); Immature Granulocytes % 1.3 % (0-4); Lymphocytes # 0.5 K/mcL (0.6-4.6); Lymphocytes % 2.2 %; Mean Corpuscular HGB Conc 32.3 g/dL (31.6-35.5); Mean Corpuscular Volume 89.7 fL (83.0-100.0); Mean Platelet Volume 11.6 fL (9.4-12.4); Monocytes # 1.4 K/mcL (0.0-1.3); Monocytes % 6.2 %; Platelet Count 250 K/mcL (140-400); Red Blood Count 5.17 M/mcL (4.19-5.50); Red Cell Distribution Width 13.8 % (11.5-14.5); Segmented Neutrophils % 89.5 %; White Blood Count 22.3 K/mcL (4.3-11.1)
[2021-03-11 04:36] LABS: INR 1.4; Prothrombin Time 15.6 Seconds (9.4-12.1)
[2021-03-11 04:42] LABS: Albumin 3.7 g/dL (3.5-5.7); Albumin/Globulin Ratio 1.3 (1.1-2.2); Bilirubin,Direct 0.2 mg/dL (0.0-0.2); Bilirubin,Total 1.2 mg/dL (0.3-1.0); Calcium 8.5 mg/dL (8.6-10.3); Globulin 2.9 g/dL (2.4-3.5); Potassium 4.8 mEq/L (3.5-5.1); Total Protein 6.6 g/dL (6.4-8.9); Troponin I 0.03 ng/mL (< 0.04)
[2021-03-11 04:59] LABS: Bilirubin,Urine Negative (Negative); Blood,Urine Large (Negative); Clarity,Urine Turbid (Clear); Color,Urine Yellow (Yellow); Glucose,Urine (UA) Normal (Normal); Ketones,Urine 10 mg/dL (Negative); Leukocyte Esterase,Urine Negative (Negative); Mucus,Urine Few per lpf (None-Few); Nitrite,Urine Negative (Negative); PH,Urine 5.5 pH Units (5.0-8.0); Protein,Urine 50 mg/dL (Neg-Trace); RBC,Urine TNTC per hpf (0-3); Specific Gravity,Urine 1.021 (1.010-1.025); Squamous Epithelial Cell,Urine Few per hpf (None-Few); Urobilinogen,Urine Normal (Normal)
[2021-03-11] MEDS ORDERED: cefTRIAXone 1,000 MG in 0.9 % Sodium Chloride Mini Bag 100 ML IVPB ONE (06:06)
[2021-03-11] MEDS ORDERED: Naloxone 0.4 MG/ML INJ IVP PRN (07:12)
[2021-03-11] MEDS ORDERED: D5% in Water 1,000 ML IVC PRN (08:09)
[2021-03-11] MEDS ORDERED: *HR* Dextrose 50 % in Water (Vial) 50 ML VIAL IVP PRN (08:09)
[2021-03-11] MEDS ORDERED: Dextrose Gel 15 GM/37.5 ML TUBE PO PRN ×2 (08:09)
[2021-03-11] MEDS: cefTRIAXone 1,000 MG in Water for inj. (sterile) 10 ML IVP SCH (09:57)
[2021-03-11] MEDS: Sodium Bicarbonate 150 MEQ in Water for inj. (sterile) 1,000 ML IVC SCH (09:57)
[2021-03-11] MEDS: Nystatin POWDER 30 GM BOTTLE TP SCH ×3 (11:53→20:42)
[2021-03-11] MEDS: Insulin LISPRO 300 UNITS/3 ML VIAL SUBQ SCH ×2 (11:53→17:41)
[2021-03-11 15:28] LABS: Estimated Average Glucose 243 mg/dl; Hemoglobin A1C 10.1 %
[2021-03-11] MEDS: Neosporin OINT 15 GM TUBE TP SCH (15:54)
[2021-03-11] MEDS: Metoprolol XL (24 HR) Succ 50 MG TAB.ER.24H PO SCH (20:41)
[2021-03-12] MEDS: Sodium Bicarbonate 150 MEQ in Water for inj. (sterile) 1,000 ML IVC SCH (00:16)
[2021-03-12 05:00] LABS: Basophils % 0.3 %; Eosinophils # 0.2 K/mcL (0.0-0.6); Eosinophils % 1.7 %; Hematocrit 38.7 % (37.5-50.1); Hemoglobin 12.6 g/dL (12.9-16.9); Immature Granulocytes % 1.3 % (0-4); Lymphocytes % 6.8 %; Mean Corpuscular HGB Conc 32.6 g/dL (31.6-35.5); Mean Corpuscular Hemoglobin 29.3 pg (28.0-33.3); Mean Platelet Volume 11.8 fL (9.4-12.4); Monocytes # 1.1 K/mcL (0.0-1.3); Neutrophils # 11.5 K/mcL (1.6-8.9); Platelet Count 197 K/mcL (140-400); Segmented Neutrophils % 81.9 %; White Blood Count 14.1 K/mcL (4.3-11.1)
[2021-03-12 05:16] LABS: BUN/Creatinine Ratio 21 (6-26); Blood Urea Nitrogen 29 mg/dL (8-23); Calcium 7.7 mg/dL (8.6-10.3); Carbon Dioxide 20 mEq/L (23-29); Chloride 107 mEq/L (98-107); Glucose 214 mg/dL (70-105); Osmolality,Calculated 296 (280-300); Potassium 3.9 mEq/L (3.5-5.1); Sodium 137 mEq/L (136-145); eGFR For African Americans > 60 (> 60); eGFR For Non-African Americans 52 (> 60)
[2021-03-12] MEDS: Metoprolol XL (24 HR) Succ 50 MG TAB.ER.24H PO SCH (08:50)
[2021-03-12] MEDS: DilTIAZem CD (24hr) 120 MG CAP.ER.24H PO SCH (08:50)
[2021-03-12] MEDS: cefTRIAXone 1,000 MG in Water for inj. (sterile) 10 ML IVP SCH (08:50)
[2021-03-12] MEDS: Insulin LISPRO 300 UNITS/3 ML VIAL SUBQ SCH ×3 (08:52→18:22)
[2021-03-12] MEDS: Neosporin OINT 15 GM TUBE TP SCH (11:23)
[2021-03-12] MEDS: Insulin DETEMIR 100 UNIT/ML X5UNITS SUBQ SCH (11:32)
[2021-03-12] MEDS: Nystatin POWDER 30 GM BOTTLE TP SCH ×3 (11:33→21:32)
[2021-03-12] MEDS ORDERED: Calcium Gluconate 1gm/50mL 1 GM/50 ML BAG IVPB ONE (13:10)
[2021-03-12] MEDS: *HR* Heparin 5,000 UNIT/ML VIAL SQ SCH (18:21)
[2021-03-13] MEDS: Metoprolol XL (24 HR) Succ 50 MG TAB.ER.24H PO SCH ×3 (03:21→21:50)
[2021-03-13] MEDS: *HR* Heparin 5,000 UNIT/ML VIAL SQ SCH ×2 (05:50→18:28)
[2021-03-13 05:53] LABS: Basophils # 0.1 K/mcL (0.0-0.2); Basophils % 0.6 %; Eosinophils # 0.5 K/mcL (0.0-0.6); Eosinophils % 4.6 %; Hematocrit 37.8 % (37.5-50.1); Hemoglobin 12.1 g/dL (12.9-16.9); Lymphocytes # 1.2 K/mcL (0.6-4.6); Lymphocytes % 11.3 %; Mean Corpuscular Hemoglobin 28.9 pg (28.0-33.3); Mean Corpuscular Volume 90.4 fL (83.0-100.0); Mean Platelet Volume 11.5 fL (9.4-12.4); Monocytes # 0.8 K/mcL (0.0-1.3); Monocytes % 8.1 %; Neutrophils # 7.5 K/mcL (1.6-8.9); Platelet Count 194 K/mcL (140-400); Red Blood Count 4.18 M/mcL (4.19-5.50); Red Cell Distribution Width 13.7 % (11.5-14.5); Segmented Neutrophils % 73.4 %; White Blood Count 10.2 K/mcL (4.3-11.1)
[2021-03-13 06:13] LABS: BUN/Creatinine Ratio 17 (6-26); Blood Urea Nitrogen 21 mg/dL (8-23); Calcium 7.9 mg/dL (8.6-10.3); Carbon Dioxide 26 mEq/L (23-29); Chloride 105 mEq/L (98-107); Glucose 257 mg/dL (70-105); Osmolality,Calculated 296 (280-300); Phosphorous 2.9 mg/dL (2.7-4.5); Potassium 3.8 mEq/L (3.5-5.1); Sodium 137 mEq/L (136-145); eGFR For African Americans > 60 (> 60); eGFR For Non-African Americans 57 (> 60)
[2021-03-13] MEDS: Insulin LISPRO 300 UNITS/3 ML VIAL SUBQ SCH ×4 (07:54→21:51)
[2021-03-13] MEDS: cefTRIAXone 1,000 MG in Water for inj. (sterile) 10 ML IVP SCH (07:54)
[2021-03-13] MEDS: Spironolactone 25 MG TABLET PO SCH ×2 (07:55→21:50)
[2021-03-13] MEDS: Furosemide 20 MG TABLET PO SCH ×2 (07:55→21:50)
[2021-03-13] MEDS: DilTIAZem CD (24hr) 120 MG CAP.ER.24H PO SCH (07:55)
[2021-03-13] MEDS: Nystatin POWDER 30 GM BOTTLE TP SCH ×3 (07:56→21:52)
[2021-03-13] MEDS: Neosporin OINT 15 GM TUBE TP SCH (07:56)
[2021-03-13] MEDS: Insulin DETEMIR 100 UNIT/ML X5UNITS SUBQ SCH (08:00)
[2021-03-13] MEDS ORDERED: Insulin DETEMIR 100 UNIT/ML X5UNITS SUBQ ONE (11:03)
[2021-03-13 23:38] LABS: Adenovirus F 40/41 PCR Not detected (Not detect); Astrovirus PCR Not detected (Not detect); C.difficile Toxin A/B Gene PCR Not detected (Not detect); Campylobacter by PCR Not detected (Not detect); Cryptosporidium by PCR Not detected (Not detect); Cyclospora cayetanensis PCR Not detected (Not detect); E. coli O157 by PCR Not detected (Not detect); Entamoeba histolytica PCR Not detected (Not detect); Enteroaggregative E.coli(EAEC) Not detected (Not detect); Enteropathogenic E.coli(EPEC) Not detected (Not detect); Enterotoxigenic E.coli (ETEC) Not detected (Not detect); Giardia lamblia PCR Not detected (Not detect); Norovirus GI/GII PCR Not detected (Not detect); Plesiomonas shigelloides PCR Not detected (Not detect); Rotavirus A PCR Not detected (Not detect); Salmonella PCR Not detected (Not detect); Sapovirus PCR Not detected (Not detect); Shig/EnteroinvasiveE coli EIEC Not detected (Not detect); Shigalike tox-prod E coli STEC Not detected (Not detect); Vibrio PCR Not detected (Not detect); Vibrio cholerae PCR Not detected (Not detect); Yersinia enterocolitica PCR Not detected (Not detect)
[2021-03-14] MEDS: *HR* Heparin 5,000 UNIT/ML VIAL SQ SCH ×2 (05:25→17:38)
[2021-03-14 06:35] LABS: Hematocrit 41.6 % (37.5-50.1); Hemoglobin 12.8 g/dL (12.9-16.9)
[2021-03-14 07:05] LABS: % Iron Saturation 27 % (20-55); Iron 48 mcg/dL (65-175); Transferrin 125 mg/dL (203-362)
[2021-03-14 07:10] LABS: Ferritin 376 ng/mL (20-250)
[2021-03-14 07:15] LABS: Folate 9.2 ng/mL (3.0-16.0)
[2021-03-14] MEDS: cefTRIAXone 1,000 MG in Water for inj. (sterile) 10 ML IVP SCH (08:44)
[2021-03-14] MEDS: Spironolactone 25 MG TABLET PO SCH ×2 (08:45→21:28)
[2021-03-14] MEDS: Metoprolol XL (24 HR) Succ 50 MG TAB.ER.24H PO SCH ×2 (08:45→21:29)
[2021-03-14] MEDS: Insulin DETEMIR 100 UNIT/ML X5UNITS SUBQ SCH (08:45)
[2021-03-14] MEDS: Insulin LISPRO 300 UNITS/3 ML VIAL SUBQ SCH ×4 (08:45→21:29)
[2021-03-14] MEDS: Furosemide 20 MG TABLET PO SCH ×2 (08:45→21:28)
[2021-03-14] MEDS: DilTIAZem CD (24hr) 120 MG CAP.ER.24H PO SCH (08:45)
[2021-03-14] MEDS: Nystatin POWDER 30 GM BOTTLE TP SCH ×3 (08:46→21:30)
[2021-03-14] MEDS: Neosporin OINT 15 GM TUBE TP SCH (08:46)
[2021-03-15] MEDS: *HR* Heparin 5,000 UNIT/ML VIAL SQ SCH ×2 (05:14→17:38)
[2021-03-15] MEDS: Insulin LISPRO 300 UNITS/3 ML VIAL SUBQ SCH ×4 (08:24→20:58)
[2021-03-15] MEDS: cefTRIAXone 1,000 MG in Water for inj. (sterile) 10 ML IVP SCH (08:24)
[2021-03-15] MEDS: Metoprolol XL (24 HR) Succ 50 MG TAB.ER.24H PO SCH ×2 (08:25→19:47)
[2021-03-15] MEDS: DilTIAZem CD (24hr) 120 MG CAP.ER.24H PO SCH (08:25)
[2021-03-15] MEDS: Furosemide 20 MG TABLET PO SCH ×2 (08:25→19:47)
[2021-03-15] MEDS: Spironolactone 25 MG TABLET PO SCH ×2 (08:25→19:47)
[2021-03-15] MEDS: Insulin DETEMIR 100 UNIT/ML X5UNITS SUBQ SCH (08:28)
[2021-03-15] MEDS: Nystatin POWDER 30 GM BOTTLE TP SCH ×3 (08:28→19:47)
[2021-03-15] MEDS: Neosporin OINT 15 GM TUBE TP SCH (08:29)
[2021-03-16] MEDS: *HR* Heparin 5,000 UNIT/ML VIAL SQ SCH ×2 (06:45→18:01)
[2021-03-16] MEDS: Spironolactone 25 MG TABLET PO SCH ×2 (08:53→20:17)
[2021-03-16] MEDS: Insulin LISPRO 300 UNITS/3 ML VIAL SUBQ SCH ×4 (08:53→20:21)
[2021-03-16] MEDS: Furosemide 20 MG TABLET PO SCH ×2 (08:53→20:18)
[2021-03-16] MEDS: Metoprolol XL (24 HR) Succ 50 MG TAB.ER.24H PO SCH ×2 (08:53→20:18)
[2021-03-16] MEDS: DilTIAZem CD (24hr) 120 MG CAP.ER.24H PO SCH (08:53)
[2021-03-16] MEDS: cefTRIAXone 1,000 MG in Water for inj. (sterile) 10 ML IVP SCH (08:54)
[2021-03-16] MEDS: Insulin DETEMIR 100 UNIT/ML X5UNITS SUBQ SCH (08:57)
[2021-03-16] MEDS: Neosporin OINT 15 GM TUBE TP SCH (08:57)
[2021-03-16] MEDS: Nystatin POWDER 30 GM BOTTLE TP SCH ×3 (08:57→20:18)
[2021-03-16] MEDS: Ondansetron 4 MG/2 ML VIAL IVP PRN (20:21)
[2021-03-17] MEDS: *HR* Heparin 5,000 UNIT/ML VIAL SQ SCH ×2 (05:53→17:18)
[2021-03-17] MEDS: cefTRIAXone 1,000 MG in Water for inj. (sterile) 10 ML IVP SCH (07:49)
[2021-03-17] MEDS: Furosemide 20 MG TABLET PO SCH ×2 (07:50→20:04)
[2021-03-17] MEDS: Spironolactone 25 MG TABLET PO SCH ×2 (07:50→20:03)
[2021-03-17] MEDS: DilTIAZem CD (24hr) 120 MG CAP.ER.24H PO SCH (07:50)
[2021-03-17] MEDS: Metoprolol XL (24 HR) Succ 50 MG TAB.ER.24H PO SCH ×2 (07:50→20:03)
[2021-03-17] MEDS: Insulin LISPRO 300 UNITS/3 ML VIAL SUBQ SCH ×4 (07:51→20:04)
[2021-03-17] MEDS: Nystatin POWDER 30 GM BOTTLE TP SCH ×3 (07:51→20:04)
[2021-03-17] MEDS: Neosporin OINT 15 GM TUBE TP SCH (07:51)
[2021-03-17] MEDS: Insulin DETEMIR 100 UNIT/ML X5UNITS SUBQ SCH (07:54)
[2021-03-17] MEDS ORDERED: Insulin DETEMIR 100 UNIT/ML X5UNITS SUBQ ONE (13:46)
[2021-03-18] MEDS ORDERED: Melatonin 3 MG TABLET PO ONE (01:53)
[2021-03-18] MEDS: Ondansetron 4 MG/2 ML VIAL IVP PRN (03:05)
[2021-03-18] MEDS: *HR* Heparin 5,000 UNIT/ML VIAL SQ SCH ×2 (05:33→16:53)
[2021-03-18] MEDS: Insulin LISPRO 300 UNITS/3 ML VIAL SUBQ SCH ×4 (08:18→20:09)
[2021-03-18] MEDS: Neosporin OINT 15 GM TUBE TP SCH (08:19)
[2021-03-18] MEDS: Metoprolol XL (24 HR) Succ 50 MG TAB.ER.24H PO SCH ×2 (08:19→20:09)
[2021-03-18] MEDS: Furosemide 20 MG TABLET PO SCH ×2 (08:19→20:09)
[2021-03-18] MEDS: DilTIAZem CD (24hr) 120 MG CAP.ER.24H PO SCH (08:19)
[2021-03-18] MEDS: Spironolactone 25 MG TABLET PO SCH ×2 (08:19→20:09)
[2021-03-18] MEDS: cefTRIAXone 1,000 MG in Water for inj. (sterile) 10 ML IVP SCH (08:19)
[2021-03-18] MEDS: Nystatin POWDER 30 GM BOTTLE TP SCH ×3 (08:20→20:10)
[2021-03-18] MEDS ORDERED: Insulin DETEMIR 100 UNIT/ML X5UNITS SUBQ SCH (09:00)
[2021-03-18] MEDS ORDERED: Insulin DETEMIR 100 UNIT/ML X5UNITS SUBQ ONE (10:02)
[2021-03-19] MEDS: *HR* Heparin 5,000 UNIT/ML VIAL SQ SCH ×2 (06:43→17:40)
[2021-03-19] MEDS: Insulin DETEMIR 100 UNIT/ML X5UNITS SUBQ SCH (08:38)
[2021-03-19] MEDS: Insulin LISPRO 300 UNITS/3 ML VIAL SUBQ SCH ×4 (08:38→21:07)
[2021-03-19] MEDS: Nystatin POWDER 30 GM BOTTLE TP SCH ×3 (08:39→21:07)
[2021-03-19] MEDS: Metoprolol XL (24 HR) Succ 50 MG TAB.ER.24H PO SCH ×2 (08:39→20:29)
[2021-03-19] MEDS: DilTIAZem CD (24hr) 120 MG CAP.ER.24H PO SCH (08:39)
[2021-03-19] MEDS: Spironolactone 25 MG TABLET PO SCH ×2 (08:39→20:29)
[2021-03-19] MEDS: Furosemide 20 MG TABLET PO SCH ×2 (08:39→20:29)
[2021-03-19] MEDS: Neosporin OINT 15 GM TUBE TP SCH (08:44)
[2021-03-19] MEDS ORDERED: 0.9 % Sodium Chloride 1,000 ML IVC ONE (17:44)
[2021-03-20] MEDS: *HR* Heparin 5,000 UNIT/ML VIAL SQ SCH ×2 (05:58→16:55)
[2021-03-20] MEDS: Insulin LISPRO 300 UNITS/3 ML VIAL SUBQ SCH ×4 (08:22→20:08)
[2021-03-20] MEDS: Metoprolol XL (24 HR) Succ 50 MG TAB.ER.24H PO SCH (08:22)
[2021-03-20] MEDS: Insulin DETEMIR 100 UNIT/ML X5UNITS SUBQ SCH (08:22)
[2021-03-20] MEDS: Neosporin OINT 15 GM TUBE TP SCH (08:23)
[2021-03-20] MEDS: Furosemide 20 MG TABLET PO SCH ×2 (08:23→20:07)
[2021-03-20] MEDS: DilTIAZem CD (24hr) 120 MG CAP.ER.24H PO SCH (08:23)
[2021-03-20] MEDS: Nystatin POWDER 30 GM BOTTLE TP SCH ×3 (08:23→20:06)
[2021-03-20] MEDS: Ondansetron 4 MG/2 ML VIAL IVP PRN (12:17)
[2021-03-20] MEDS: Spironolactone 25 MG TABLET PO SCH ×2 (12:19→20:07)
[2021-03-21] MEDS: Ondansetron 4 MG/2 ML VIAL IVP PRN (02:00)
[2021-03-21] MEDS: *HR* Heparin 5,000 UNIT/ML VIAL SQ SCH ×2 (05:08→17:38)
[2021-03-21] MEDS: Spironolactone 25 MG TABLET PO SCH ×2 (08:58→21:13)
[2021-03-21] MEDS: Furosemide 20 MG TABLET PO SCH ×2 (08:58→21:13)
[2021-03-21] MEDS: DilTIAZem CD (24hr) 120 MG CAP.ER.24H PO SCH (08:59)
[2021-03-21] MEDS: Insulin LISPRO 300 UNITS/3 ML VIAL SUBQ SCH ×4 (09:01→21:14)
[2021-03-21] MEDS: Nystatin POWDER 30 GM BOTTLE TP SCH ×3 (09:31→21:14)
[2021-03-21] MEDS: Neosporin OINT 15 GM TUBE TP SCH (09:31)
[2021-03-21] MEDS: Insulin DETEMIR 100 UNIT/ML X5UNITS SUBQ SCH (09:32)
[2021-03-22] MEDS: *HR* Heparin 5,000 UNIT/ML VIAL SQ SCH ×2 (05:03→17:11)
[2021-03-22] MEDS: Furosemide 20 MG TABLET PO SCH ×2 (08:14→21:12)
[2021-03-22] MEDS: Spironolactone 25 MG TABLET PO SCH ×2 (08:14→21:12)
[2021-03-22] MEDS: Insulin LISPRO 300 UNITS/3 ML VIAL SUBQ SCH ×4 (08:15→21:13)
[2021-03-22] MEDS: DilTIAZem CD (24hr) 120 MG CAP.ER.24H PO SCH (08:15)
[2021-03-22] MEDS: Nystatin POWDER 30 GM BOTTLE TP SCH ×3 (08:21→21:12)
[2021-03-22] MEDS: Neosporin OINT 15 GM TUBE TP SCH (08:22)
[2021-03-22] MEDS: Insulin DETEMIR 100 UNIT/ML X5UNITS SUBQ SCH (08:25)
[2021-03-23] MEDS: *HR* Heparin 5,000 UNIT/ML VIAL SQ SCH (05:58)
[2021-03-23 07:01] VITALS: BP 134/74
[2021-03-23] MEDS: Insulin LISPRO 300 UNITS/3 ML VIAL SUBQ SCH (08:57)
[2021-03-23] MEDS: Ondansetron 4 MG/2 ML VIAL IVP PRN (08:58)
[2021-03-23] MEDS: Furosemide 20 MG TABLET PO SCH (08:59)
[2021-03-23] MEDS: Spironolactone 25 MG TABLET PO SCH (08:59)
[2021-03-23] MEDS: DilTIAZem CD (24hr) 120 MG CAP.ER.24H PO SCH (08:59)
[2021-03-23] MEDS ORDERED: Insulin DETEMIR 100 UNIT/ML X5UNITS SUBQ SCH (09:00)
[2021-03-23] MEDS: Neosporin OINT 15 GM TUBE TP SCH (09:00)
[2021-03-23] MEDS: Nystatin POWDER 30 GM BOTTLE TP SCH (09:00)
== END 2021-03-23 10:55 | DRG 872 ==
LOC: EMEROOARM 03:28 → 3BNU 03:28 → SUATTDRO 06:37 → 3BNU 08:03 → SUATTDRO 03-15 16:58
PROVIDERS: ADMIT Family Medicine; ATTEND Registered Nurse

== ENCOUNTER 2022-04-05 22:07 | Inpatient (IN) ==
[2022-04-05] MEDS ORDERED: Iopamidol - 370 500 ML MLS IVP ONE (23:45)
[2022-04-05 23:59] LABS: Basophils # 0.1 K/mcL (0.0-0.2); Basophils % 0.4 %; Eosinophils % 0.1 %; Hematocrit 44.5 % (37.5-50.1); Hemoglobin 14.9 g/dL (12.9-16.9); Immature Granulocytes % 2.2 % (0-4); Lymphocytes # 0.7 K/mcL (0.6-4.6); Lymphocytes % 3.3 %; Mean Corpuscular HGB Conc 33.5 g/dL (31.6-35.5); Mean Corpuscular Hemoglobin 30.9 pg (28.0-33.3); Mean Corpuscular Volume 92.3 fL (83.0-100.0); Mean Platelet Volume 11.5 fL (9.4-12.4); Monocytes # 1.2 K/mcL (0.0-1.3); Monocytes % 5.6 %; Platelet Count 257 K/mcL (140-400); Red Blood Count 4.82 M/mcL (4.19-5.50); Red Cell Distribution Width 14.5 % (11.5-14.5); Segmented Neutrophils % 88.4 %
[2022-04-06 00:02] LABS: White Blood Count 21.5 K/mcL (4.3-11.1)
[2022-04-06 00:18] LABS: Bilirubin,Direct 0.3 mg/dL (0.0-0.2); Bilirubin,Indirect 1.2 mg/dL (0.0-1.0); Bilirubin,Total 1.5 mg/dL (0.3-1.0); Calcium 9.6 mg/dL (8.6-10.3); Potassium 4.1 mEq/L (3.5-5.1)
[2022-04-06 00:19] LABS: Albumin 3.9 g/dL (3.5-5.7); Albumin/Globulin Ratio 1.1 (1.1-2.2); Globulin 3.7 g/dL (2.4-3.5); INR 1.9; Prothrombin Time 20.8 Seconds (9.4-12.1); Total Protein 7.6 g/dL (6.4-8.9)
[2022-04-06 00:22] LABS: Activated Partial Thrombo Time 34.1 Seconds (26.0-36.0)
[2022-04-06 00:23] LABS: Troponin I 0.05 ng/mL (< 0.04)
[2022-04-06] MEDS ORDERED: Piperacillin/Tazobactam 3.375 GM in 0.9 % Sodium Chloride Mini Bag 100 ML IVPB ONE (00:56)
[2022-04-06] MEDS ORDERED: 0.9 % Sodium Chloride 1,000 ML IV ONE (01:29)
[2022-04-06] MEDS ORDERED: EPINEPHrine 1 MG/ML VIAL ONE ×2 (01:51→02:10)
[2022-04-06] MEDS ORDERED: methylPREDNISolone 125 MG/2 ML VIAL ONE (01:51)
[2022-04-06] MEDS ORDERED: Famotidine 20 MG/2 ML VIAL IVP ONE (01:54)
[2022-04-06] MEDS ORDERED: Ipratropium/Albuterol Neb 3 ML ONE ×2 (01:55→02:38)
[2022-04-06] MEDS ORDERED: Vancomycin 2,000 MG/520 ML IV.SOLN IVPB ONE (02:00)
[2022-04-06] MEDS ORDERED: *HR* Ticagrelor 90 MG TABLET PO ONE (02:13)
[2022-04-06] MEDS ORDERED: *HR* Heparin 5,000 UNIT/ML VIAL IVP ONE ×2 (02:14→11:04)
[2022-04-06] MEDS ORDERED: *HR* Heparin 5,000 UNIT/ML VIAL IVP PRN ×4 (02:14→11:04)
[2022-04-06] MEDS ORDERED: Heparin 25,000UNIT/250ML 1/2NS 25,000 UNIT/250 ML IV.SOLN IVC SCH ×2 (02:15→11:15)
[2022-04-06] MEDS ORDERED: Aspirin 81 MG TAB.CHEW ONE (02:18)
[2022-04-06] MEDS ORDERED: Aspirin 81 MG TAB.CHEW PO ONE (02:30)
[2022-04-06] MEDS ORDERED: 0.9 % Sodium Chloride 2,000 ML ONE (02:39)
[2022-04-06] MEDS ORDERED: *HR* Midazolam HCl 2 MG/2 ML VIAL ONE (02:39)
[2022-04-06] MEDS ORDERED: Tirofiban 12.5 MG/250ML 0 MG/0 ML BAG ONE (02:39)
[2022-04-06] MEDS ORDERED: *HR* FentaNYL (PF) 100 MCG/2 ML VIAL ONE (02:39)
[2022-04-06] MEDS ORDERED: Heparin 1,000 UNITS/500 mL 0 ML ONE (02:39)
[2022-04-06 02:40] LABS: Magnesium 2.1 mg/dL (1.6-2.6)
[2022-04-06] MEDS ORDERED: Iopamidol - 370 200 ML INFUS..BTL ONE (02:40)
[2022-04-06] MEDS ORDERED: *HR* Heparin 10,000 UNIT/10 ML VIAL ONE (02:40)
[2022-04-06] MEDS ORDERED: Nitroglycerin 1,000 MCG/5 ML VIAL IV ONE (02:40)
[2022-04-06 02:44] LABS: Troponin I 0.21 ng/mL (< 0.04)
[2022-04-06 03:20] LABS: ABG Base Excess -7 mEq/L (-2 to 3); ABG HCO3 17 mEq/L (21-27); ABG Oxygen Saturation 100 % (95-98); ABG PCO2 30 mmHg (35-45); ABG PH 7.37 pH Units (7.32-7.45); ABG PO2 523 mmHg (85-104); ABG TCO2 18 mEq/L (20-26); Blood Gas Pressure Support 5 cm H2O
[2022-04-06] MEDS ORDERED: Naloxone 0.4 MG/ML INJ IVP PRN (04:13)
[2022-04-06] MEDS ORDERED: *HR* Dextrose 50 % in Water (Syg) 50 ML SYRINGE IVP PRN (06:44)
[2022-04-06] MEDS ORDERED: D5% in Water 1,000 ML IVC PRN (06:44)
[2022-04-06] MEDS ORDERED: Dextrose Gel 15 GM/37.5 ML TUBE PO PRN ×2 (06:44)
[2022-04-06] MEDS ORDERED: Perflutren Lipid Microsphere 1.3 ML in 0.9 % Sodium Chloride 8.7 ML IVP PRN (07:33)
[2022-04-06] MEDS: DilTIAZem CD (24hr) 120 MG CAP.ER.24H PO SCH (08:40)
[2022-04-06] MEDS: levoFLOXacin 500 MG/100 ML 500 MG/100 ML BAG IVPB SCH (08:41)
[2022-04-06] MEDS: Insulin LISPRO 300 UNITS/3 ML VIAL SUBQ SCH ×4 (08:41→20:01)
[2022-04-06 08:55] LABS: Bacteria,Urine Few per hpf (None-Few); Bilirubin,Urine Negative (Negative); Blood,Urine Large (Negative); Clarity,Urine Turbid (Clear); Color,Urine Yellow (Yellow); Glucose,Urine (UA) 70 mg/dL (Normal); Ketones,Urine Trace mg/dL (Negative); Leukocyte Esterase,Urine Negative (Negative); Nitrite,Urine Negative (Negative); PH,Urine 5.5 pH Units (5.0-8.0); Protein,Urine 100 mg/dL (Neg-Trace); RBC,Urine 15-30 per hpf (0-3); Specific Gravity,Urine > 1.030 (1.010-1.025); Squamous Epithelial Cell,Urine Few per hpf (None-Few); Urobilinogen,Urine Normal (Normal); WBC,Urine 30-50 per hpf (0-3)
[2022-04-06] MEDS ORDERED: Insulin DETEMIR 100 UNIT/ML X5UNITS SUBQ SCH ×2 (09:00→21:00)
[2022-04-06 09:27] LABS: Adenovirus Not Detected (Not Detect); Bordetella Pertussis Not Detected (Not Detect); Chlamydophila pneumoniae Not Detected (Not Detect); Coronavirus 229E Not Detected (Not Detect); Coronavirus HKU1 Not Detected (Not Detect); Coronavirus NL63 Not Detected (Not Detect); Coronavirus OC43 Not Detected (Not Detect); Human Metapneumovirus Not Detected (Not Detect); Human Rhinovirus/Enterovirus Not Detected (Not Detect); Influenza A Subtype 2009 H1 Not Detected (Not Detect); Influenza B Not Detected (Not Detect); Mycoplasma pneumoniae Not Detected (Not Detect); Parainfluenza Virus 1 Not Detected (Not Detect); Parainfluenza Virus 2 Not Detected (Not Detect); Parainfluenza Virus 3 Not Detected (Not Detect); Parainfluenza Virus 4 Not Detected (Not Detect); Respiratory Syncytial Virus Not Detected (Not Detect); SARS-CoV-2 Not Detected (Not Detect)
[2022-04-06 10:33] LABS: Hemoglobin 14.1 g/dL (12.9-16.9); Immature Platelets 5.6 % (1.1-6.1); Lymphocytes % 1.8 %
[2022-04-06 10:35] LABS: Basophils # 0.1 K/mcL (0.0-0.2); Basophils % 0.3 %; Hematocrit 43.4 % (37.5-50.1); Immature Granulocytes % 0.9 % (0-4); Lymphocytes # 0.4 K/mcL (0.6-4.6); Mean Corpuscular HGB Conc 32.5 g/dL (31.6-35.5); Mean Corpuscular Hemoglobin 31.1 pg (28.0-33.3); Mean Corpuscular Volume 95.6 fL (83.0-100.0); Mean Platelet Volume 11.3 fL (9.4-12.4); Monocytes # 0.4 K/mcL (0.0-1.3); Monocytes % 2.1 %; Neutrophils # 19.6 K/mcL (1.6-8.9); Platelet Count 236 K/mcL (140-400); Red Blood Count 4.54 M/mcL (4.19-5.50); Red Cell Distribution Width 14.6 % (11.5-14.5); Segmented Neutrophils % 94.9 %; White Blood Count 20.7 K/mcL (4.3-11.1)
[2022-04-06 10:51] LABS: Calcium 8.8 mg/dL (8.6-10.3); Potassium 4.9 mEq/L (3.5-5.1)
[2022-04-06 11:57] LABS: Hematocrit 42.3 % (37.5-50.1); Hemoglobin 13.9 g/dL (12.9-16.9); Mean Corpuscular HGB Conc 32.9 g/dL (31.6-35.5); Mean Corpuscular Hemoglobin 30.9 pg (28.0-33.3); Mean Platelet Volume 11.6 fL (9.4-12.4); Platelet Count 230 K/mcL (140-400); Red Cell Distribution Width 14.6 % (11.5-14.5); White Blood Count 23.7 K/mcL (4.3-11.1)
[2022-04-06 12:04] LABS: INR 1.9; Prothrombin Time 21.3 Seconds (9.4-12.1)
[2022-04-06 12:09] LABS: Heparin anti-factor XA UFH 1.63 IU/mL (0.30-0.70)
[2022-04-06] MEDS: Heparin 25,000UNIT/250ML 1/2NS 25,000 UNIT/250 ML IV.SOLN IVC SCH (12:59)
[2022-04-06] MEDS ORDERED: Insulin DETEMIR 100 UNIT/ML X5UNITS SUBQ ONE ×2 (16:07→17:24)
[2022-04-06 16:49] LABS: VBG HCO3 20 mEq/L (21-27); VBG PCO2 33 mmHg (41-51); VBG PO2 105 mmHg (25-50)
[2022-04-06 17:19] LABS: Calcium 8.6 mg/dL (8.6-10.3); Potassium 4.6 mEq/L (3.5-5.1)
[2022-04-06] MEDS ORDERED: Insulin LISPRO 300 UNITS/3 ML VIAL SUBQ ONE (17:23)
[2022-04-06] MEDS ORDERED: 0.9 % Sodium Chloride 500 ML IVC ONE (17:27)
[2022-04-06] MEDS ORDERED: 0.9 % Sodium Chloride 1,000 ML IVC SCH (17:30)
[2022-04-06] MEDS: Metoprolol 100 MG TABLET PO SCH (20:02)
[2022-04-06] MEDS: Nystatin POWDER 30 GM BOTTLE TP SCH (20:02)
[2022-04-06] MEDS ORDERED: Insulin LISPRO 300 UNITS/3 ML VIAL SUBQ SCH (21:00)
[2022-04-06 21:15] LABS: VBG HCO3 19 mEq/L (21-27); VBG PCO2 25 mmHg (41-51); VBG PH 7.48 pH Units (7.32-7.42); VBG PO2 188 mmHg (25-50)
[2022-04-06 22:04] LABS: Calcium 8.7 mg/dL (8.6-10.3); Potassium 4.8 mEq/L (3.5-5.1)
[2022-04-07 01:42] LABS: Basophils % 0.2 %; Hemoglobin 11.5 g/dL (12.9-16.9); Immature Granulocytes % 1.1 % (0-4); Lymphocytes # 0.7 K/mcL (0.6-4.6); Lymphocytes % 3.6 %; Mean Corpuscular HGB Conc 32.9 g/dL (31.6-35.5); Mean Corpuscular Hemoglobin 30.4 pg (28.0-33.3); Mean Corpuscular Volume 92.6 fL (83.0-100.0); Mean Platelet Volume 11.4 fL (9.4-12.4); Monocytes # 1.3 K/mcL (0.0-1.3); Monocytes % 6.8 %; Neutrophils # 17.4 K/mcL (1.6-8.9); Platelet Count 243 K/mcL (140-400); Red Blood Count 3.78 M/mcL (4.19-5.50); Red Cell Distribution Width 14.4 % (11.5-14.5); Segmented Neutrophils % 88.3 %; White Blood Count 19.7 K/mcL (4.3-11.1)
[2022-04-07 02:06] LABS: Calcium 8.7 mg/dL (8.6-10.3); Magnesium 2.2 mg/dL (1.6-2.6); Potassium 4.5 mEq/L (3.5-5.1)
[2022-04-07 02:56] LABS: Estimated Average Glucose 189 mg/dl; Hemoglobin A1C 8.2 %
[2022-04-07] MEDS ORDERED: 0.9 % Sodium Chloride 1,000 ML IVC SCH (07:30)
[2022-04-07] MEDS: Metoprolol 100 MG TABLET PO SCH ×2 (08:34→21:41)
[2022-04-07] MEDS: Gabapentin 300 MG CAPSULE PO SCH ×2 (08:34→21:41)
[2022-04-07] MEDS: DilTIAZem CD (24hr) 120 MG CAP.ER.24H PO SCH (08:34)
[2022-04-07] MEDS: levoFLOXacin 500 MG/100 ML 500 MG/100 ML BAG IVPB SCH (08:35)
[2022-04-07] MEDS: Insulin LISPRO 300 UNITS/3 ML VIAL SUBQ SCH ×7 (08:40→21:40)
[2022-04-07] MEDS ORDERED: Insulin DETEMIR 100 UNIT/ML X5UNITS SUBQ SCH ×2 (09:00→21:00)
[2022-04-07] MEDS ORDERED: Aspirin 81 MG TAB.CHEW PO SCH (09:00)
[2022-04-07] MEDS: Nystatin POWDER 30 GM BOTTLE TP SCH ×2 (09:03→21:40)
[2022-04-07] MEDS: Heparin 25,000UNIT/250ML 1/2NS 25,000 UNIT/250 ML IV.SOLN IVC SCH (09:03)
[2022-04-07] MEDS: Insulin DETEMIR 100 UNIT/ML X5UNITS SUBQ SCH ×2 (09:30→21:41)
[2022-04-07 18:37] LABS: Hematocrit 35.1 % (37.5-50.1); Hemoglobin 11.2 g/dL (12.9-16.9)
[2022-04-07] MEDS: Apixaban 5 MG TABLET PO SCH (21:41)
[2022-04-07] MEDS: Melatonin 3 MG TABLET PO PRN (21:41)
[2022-04-07] MEDS: Simethicone 80 MG TAB.CHEW PO PRN (21:41)
[2022-04-08 07:14] LABS: Basophils # 0.1 K/mcL (0.0-0.2); Basophils % 0.4 %; Eosinophils # 0.1 K/mcL (0.0-0.6); Hematocrit 32.6 % (37.5-50.1); Hemoglobin 10.5 g/dL (12.9-16.9); Immature Granulocytes % 2.3 % (0-4); Lymphocytes # 1.4 K/mcL (0.6-4.6); Lymphocytes % 12.2 %; Mean Corpuscular HGB Conc 32.2 g/dL (31.6-35.5); Mean Corpuscular Hemoglobin 30.4 pg (28.0-33.3); Mean Corpuscular Volume 94.5 fL (83.0-100.0); Monocytes # 0.8 K/mcL (0.0-1.3); Monocytes % 6.5 %; Platelet Count 219 K/mcL (140-400); Red Blood Count 3.45 M/mcL (4.19-5.50); Red Cell Distribution Width 14.5 % (11.5-14.5); Segmented Neutrophils % 77.6 %; White Blood Count 11.5 K/mcL (4.3-11.1)
[2022-04-08] MEDS ORDERED: levoFLOXacin 750 MG/150 ML 750 MG/150 ML BAG IVPB SCH (09:00)
[2022-04-08] MEDS: Insulin LISPRO 300 UNITS/3 ML VIAL SUBQ SCH ×6 (09:44→16:44)
[2022-04-08] MEDS: Apixaban 5 MG TABLET PO SCH ×2 (09:45→20:29)
[2022-04-08] MEDS: Nystatin POWDER 30 GM BOTTLE TP SCH ×2 (09:45→20:29)
[2022-04-08] MEDS: Gabapentin 300 MG CAPSULE PO SCH ×2 (09:45→20:29)
[2022-04-08] MEDS: DilTIAZem CD (24hr) 120 MG CAP.ER.24H PO SCH (09:45)
[2022-04-08] MEDS: Insulin DETEMIR 100 UNIT/ML X5UNITS SUBQ SCH ×2 (09:49→21:09)
[2022-04-08] MEDS: Metoprolol 100 MG TABLET PO SCH ×2 (09:50→20:29)
[2022-04-08] MEDS: Sodium Bicarbonate 75 MEQ in 0.45 % Sodium Chloride 1,000 ML IVC SCH ×2 (13:22→23:55)
[2022-04-09 01:36] LABS: Basophils # 0.1 K/mcL (0.0-0.2); Eosinophils # 0.3 K/mcL (0.0-0.6); Eosinophils % 2.4 %; Hematocrit 30.2 % (37.5-50.1); Hemoglobin 9.7 g/dL (12.9-16.9); Immature Granulocytes % 4.5 % (0-4); Lymphocytes # 1.6 K/mcL (0.6-4.6); Lymphocytes % 14.5 %; Mean Corpuscular HGB Conc 32.1 g/dL (31.6-35.5); Mean Corpuscular Hemoglobin 30.1 pg (28.0-33.3); Mean Corpuscular Volume 93.8 fL (83.0-100.0); Mean Platelet Volume 10.5 fL (9.4-12.4); Monocytes # 0.8 K/mcL (0.0-1.3); Monocytes % 7.1 %; Neutrophils # 7.7 K/mcL (1.6-8.9); Nucleated Red Blood Cells 0.4 /100 WBC (0); Platelet Count 204 K/mcL (140-400); Red Blood Count 3.22 M/mcL (4.19-5.50); Red Cell Distribution Width 14.2 % (11.5-14.5); Segmented Neutrophils % 70.5 %; White Blood Count 10.9 K/mcL (4.3-11.1)
[2022-04-09 02:02] LABS: Albumin 3.1 g/dL (3.5-5.7); Albumin/Globulin Ratio 1.1 (1.1-2.2); Bilirubin,Direct 0.1 mg/dL (0.0-0.2); Bilirubin,Indirect 0.4 mg/dL (0.0-1.0); Bilirubin,Total 0.5 mg/dL (0.3-1.0); Calcium 8.8 mg/dL (8.6-10.3); Globulin 2.7 g/dL (2.4-3.5); Magnesium 2.4 mg/dL (1.6-2.6); Potassium 4.3 mEq/L (3.5-5.1); Total Protein 5.8 g/dL (6.4-8.9)
[2022-04-09] MEDS: Insulin LISPRO 300 UNITS/3 ML VIAL SUBQ SCH ×3 (07:54→16:54)
[2022-04-09] MEDS: Nystatin POWDER 30 GM BOTTLE TP SCH ×2 (07:55→20:37)
[2022-04-09] MEDS: Metoprolol 100 MG TABLET PO SCH ×2 (07:55→20:37)
[2022-04-09] MEDS: DilTIAZem CD (24hr) 120 MG CAP.ER.24H PO SCH (07:55)
[2022-04-09] MEDS: Apixaban 5 MG TABLET PO SCH ×2 (07:55→20:37)
[2022-04-09] MEDS: Gabapentin 300 MG CAPSULE PO SCH ×2 (07:55→20:37)
[2022-04-09] MEDS: Insulin DETEMIR 100 UNIT/ML X5UNITS SUBQ SCH ×2 (07:57→20:36)
[2022-04-09] MEDS ORDERED: levoFLOXacin 750 MG/150 ML 750 MG/150 ML BAG IVPB SCH (12:00)
[2022-04-09] MEDS ORDERED: Sodium Bicarbonate 75 MEQ in 0.45 % Sodium Chloride 1,000 ML IVC SCH (16:00)
[2022-04-09] MEDS: Acetaminophen 325 MG TABLET PO PRN (20:36)
[2022-04-10] MEDS: Acetaminophen 325 MG TABLET PO PRN ×2 (02:54→16:18)
[2022-04-10] MEDS: DilTIAZem CD (24hr) 120 MG CAP.ER.24H PO SCH (08:17)
[2022-04-10] MEDS: Metoprolol 100 MG TABLET PO SCH ×2 (08:17→21:12)
[2022-04-10] MEDS: Gabapentin 300 MG CAPSULE PO SCH ×2 (08:17→21:12)
[2022-04-10] MEDS: Insulin DETEMIR 100 UNIT/ML X5UNITS SUBQ SCH ×2 (08:18→21:12)
[2022-04-10] MEDS: Apixaban 5 MG TABLET PO SCH ×2 (08:18→21:12)
[2022-04-10] MEDS: Insulin LISPRO 300 UNITS/3 ML VIAL SUBQ SCH ×3 (08:18→16:15)
[2022-04-10] MEDS: Nystatin POWDER 30 GM BOTTLE TP SCH ×2 (08:19→21:12)
[2022-04-10 10:27] LABS: Hematocrit 33.3 % (37.5-50.1); Hemoglobin 10.8 g/dL (12.9-16.9); Mean Corpuscular HGB Conc 32.4 g/dL (31.6-35.5); Mean Corpuscular Hemoglobin 30.9 pg (28.0-33.3); Mean Corpuscular Volume 95.1 fL (83.0-100.0); Mean Platelet Volume 10.8 fL (9.4-12.4); Nucleated Red Blood Cells 0.3 /100 WBC (0); Platelet Count 222 K/mcL (140-400); Red Cell Distribution Width 14.2 % (11.5-14.5); White Blood Count 10.9 K/mcL (4.3-11.1)
[2022-04-10 10:41] LABS: Calcium 8.8 mg/dL (8.6-10.3); Potassium 4.4 mEq/L (3.5-5.1)
[2022-04-10 11:18] LABS: Eosinophils # 0.4 K/mcL (0.0-0.6); Lymphocytes # 2.2 K/mcL (0.6-4.6); Monocytes # 0.4 K/mcL (0.0-1.3); Neutrophils # 7.9 K/mcL (1.6-8.9)
[2022-04-10 11:19] LABS: Anisocytosis 1+ (Not Present); Hypochromasia Present (Not Present); Platelet Estimate Normal (Normal); Poikilocytosis 1+ (Not Present)
[2022-04-10 11:20] LABS: Large Platelets Present (Not Present)
[2022-04-10] MEDS: levoFLOXacin 750 MG TABLET PO SCH (11:34)
[2022-04-11 02:03] LABS: Hematocrit 34.3 % (37.5-50.1); Hemoglobin 11.2 g/dL (12.9-16.9); Mean Corpuscular HGB Conc 32.7 g/dL (31.6-35.5); Mean Platelet Volume 11.1 fL (9.4-12.4); Nucleated Red Blood Cells 0.4 /100 WBC (0); Platelet Count 241 K/mcL (140-400); Red Blood Count 3.73 M/mcL (4.19-5.50); Red Cell Distribution Width 14.6 % (11.5-14.5)
[2022-04-11 02:07] LABS: White Blood Count 17.9 K/mcL (4.3-11.1)
[2022-04-11 02:33] LABS: Lymphocytes # 2.9 K/mcL (0.6-4.6); Monocytes # 1.8 K/mcL (0.0-1.3); Neutrophils # 12.9 K/mcL (1.6-8.9); Platelet Estimate Normal (Normal)
[2022-04-11 03:31] LABS: Calcium 9.3 mg/dL (8.6-10.3); Potassium 5.3 mEq/L (3.5-5.1)
[2022-04-11] MEDS: Acetaminophen 325 MG TABLET PO PRN ×2 (05:58→23:03)
[2022-04-11] MEDS: Nystatin POWDER 30 GM BOTTLE TP SCH ×2 (08:32→21:30)
[2022-04-11] MEDS: Apixaban 5 MG TABLET PO SCH ×2 (08:32→21:29)
[2022-04-11] MEDS: DilTIAZem CD (24hr) 120 MG CAP.ER.24H PO SCH (08:32)
[2022-04-11] MEDS: Insulin DETEMIR 100 UNIT/ML X5UNITS SUBQ SCH ×2 (08:33→21:31)
[2022-04-11] MEDS: Insulin LISPRO 300 UNITS/3 ML VIAL SUBQ SCH ×3 (08:33→16:17)
[2022-04-11] MEDS: Gabapentin 300 MG CAPSULE PO SCH ×2 (08:33→21:29)
[2022-04-11] MEDS: Metoprolol 100 MG TABLET PO SCH ×2 (08:33→21:30)
[2022-04-11] MEDS: levoFLOXacin 750 MG TABLET PO SCH (11:34)
[2022-04-11] MEDS: Simethicone 80 MG TAB.CHEW PO PRN (11:34)
[2022-04-11] MEDS: Ondansetron ODT 4 MG TAB.RAPDIS SL PRN (17:29)
[2022-04-12 04:35] LABS: Basophils % 0.3 %; Eosinophils # 0.3 K/mcL (0.0-0.6); Eosinophils % 2.2 %; Hemoglobin 11.1 g/dL (12.9-16.9); Lymphocytes # 1.4 K/mcL (0.6-4.6); Lymphocytes % 9.5 %; Mean Corpuscular HGB Conc 32.6 g/dL (31.6-35.5); Mean Corpuscular Hemoglobin 30.2 pg (28.0-33.3); Mean Corpuscular Volume 92.6 fL (83.0-100.0); Mean Platelet Volume 10.7 fL (9.4-12.4); Monocytes # 0.9 K/mcL (0.0-1.3); Monocytes % 6.5 %; Neutrophils # 10.8 K/mcL (1.6-8.9); Nucleated Red Blood Cells 0.1 /100 WBC (0); Platelet Count 264 K/mcL (140-400); Red Blood Count 3.67 M/mcL (4.19-5.50); Red Cell Distribution Width 14.7 % (11.5-14.5); Segmented Neutrophils % 74.5 %; White Blood Count 14.5 K/mcL (4.3-11.1)
[2022-04-12 04:57] LABS: Magnesium 1.9 mg/dL (1.6-2.6); Potassium 4.7 mEq/L (3.5-5.1)
[2022-04-12 05:17] LABS: Platelet Estimate Normal (Normal)
[2022-04-12] MEDS: Acetaminophen 325 MG TABLET PO PRN ×2 (06:30→18:17)
[2022-04-12] MEDS: DilTIAZem CD (24hr) 120 MG CAP.ER.24H PO SCH (08:11)
[2022-04-12] MEDS: Nystatin POWDER 30 GM BOTTLE TP SCH ×2 (08:11→21:33)
[2022-04-12] MEDS: Apixaban 5 MG TABLET PO SCH ×2 (08:12→21:33)
[2022-04-12] MEDS: Insulin DETEMIR 100 UNIT/ML X5UNITS SUBQ SCH ×2 (08:12→22:27)
[2022-04-12] MEDS: Gabapentin 300 MG CAPSULE PO SCH ×2 (08:12→21:33)
[2022-04-12] MEDS: Insulin LISPRO 300 UNITS/3 ML VIAL SUBQ SCH ×3 (08:12→16:40)
[2022-04-12] MEDS: Metoprolol 100 MG TABLET PO SCH ×2 (08:12→21:33)
[2022-04-12] MEDS: levoFLOXacin 750 MG TABLET PO SCH (11:55)
[2022-04-12] MEDS: Lactobacillus 1 EACH CAP.SPRINK PO SCH (21:33)
[2022-04-13] MEDS: Acetaminophen 325 MG TABLET PO PRN ×4 (00:20→22:29)
[2022-04-13 01:13] LABS: Hematocrit 33.3 % (37.5-50.1); Hemoglobin 10.6 g/dL (12.9-16.9); Mean Corpuscular HGB Conc 31.8 g/dL (31.6-35.5); Mean Corpuscular Hemoglobin 29.9 pg (28.0-33.3); Mean Corpuscular Volume 94.1 fL (83.0-100.0); Mean Platelet Volume 10.8 fL (9.4-12.4); Nucleated Red Blood Cells 0.1 /100 WBC (0); Platelet Count 275 K/mcL (140-400); Red Blood Count 3.54 M/mcL (4.19-5.50); Red Cell Distribution Width 14.6 % (11.5-14.5); White Blood Count 14.1 K/mcL (4.3-11.1)
[2022-04-13 01:26] LABS: Platelet Estimate Normal (Normal)
[2022-04-13 01:27] LABS: Eosinophils # 0.6 K/mcL (0.0-0.6); Monocytes # 1.4 K/mcL (0.0-1.3); Neutrophils # 9.9 K/mcL (1.6-8.9)
[2022-04-13 01:33] LABS: Calcium 8.9 mg/dL (8.6-10.3); Magnesium 1.9 mg/dL (1.6-2.6); Potassium 4.7 mEq/L (3.5-5.1)
[2022-04-13] MEDS: Lactobacillus 1 EACH CAP.SPRINK PO SCH ×2 (08:10→20:22)
[2022-04-13] MEDS: DilTIAZem CD (24hr) 120 MG CAP.ER.24H PO SCH (08:11)
[2022-04-13] MEDS: Apixaban 5 MG TABLET PO SCH ×2 (08:11→20:22)
[2022-04-13] MEDS: Gabapentin 300 MG CAPSULE PO SCH ×2 (08:11→20:22)
[2022-04-13] MEDS: Metoprolol 100 MG TABLET PO SCH ×2 (08:11→20:22)
[2022-04-13] MEDS: Nystatin POWDER 30 GM BOTTLE TP SCH ×2 (08:11→20:22)
[2022-04-13] MEDS: Insulin DETEMIR 100 UNIT/ML X5UNITS SUBQ SCH ×2 (08:11→20:22)
[2022-04-13] MEDS: Insulin LISPRO 300 UNITS/3 ML VIAL SUBQ SCH ×3 (08:12→16:18)
[2022-04-13] MEDS ORDERED: levoFLOXacin 750 MG TABLET PO SCH (09:00)
[2022-04-14 05:58] LABS: Basophils # 0.1 K/mcL (0.0-0.2); Basophils % 0.8 %; Eosinophils # 0.4 K/mcL (0.0-0.6); Eosinophils % 3.5 %; Hematocrit 31.9 % (37.5-50.1); Hemoglobin 10.2 g/dL (12.9-16.9); Immature Granulocytes % 9.2 % (0-4); Lymphocytes # 1.5 K/mcL (0.6-4.6); Lymphocytes % 13.8 %; Mean Corpuscular Hemoglobin 29.7 pg (28.0-33.3); Mean Platelet Volume 10.6 fL (9.4-12.4); Monocytes # 0.8 K/mcL (0.0-1.3); Monocytes % 7.2 %; Neutrophils # 7.1 K/mcL (1.6-8.9); Nucleated Red Blood Cells 0.3 /100 WBC (0); Platelet Count 263 K/mcL (140-400); Red Blood Count 3.43 M/mcL (4.19-5.50); Red Cell Distribution Width 14.8 % (11.5-14.5); Segmented Neutrophils % 65.5 %; White Blood Count 10.8 K/mcL (4.3-11.1)
[2022-04-14 06:05] LABS: Platelet Estimate Normal (Normal)
[2022-04-14 06:17] LABS: Calcium 8.6 mg/dL (8.6-10.3); Magnesium 1.9 mg/dL (1.6-2.6); Potassium 4.6 mEq/L (3.5-5.1)
[2022-04-14] MEDS: Gabapentin 300 MG CAPSULE PO SCH ×2 (08:56→20:07)
[2022-04-14] MEDS: levoFLOXacin 750 MG/150 ML 750 MG/150 ML BAG IVPB SCH (08:56)
[2022-04-14] MEDS: Lactobacillus 1 EACH CAP.SPRINK PO SCH ×2 (08:57→20:07)
[2022-04-14] MEDS: Insulin DETEMIR 100 UNIT/ML X5UNITS SUBQ SCH ×2 (08:57→20:07)
[2022-04-14] MEDS: Nystatin POWDER 30 GM BOTTLE TP SCH ×2 (08:57→20:07)
[2022-04-14] MEDS: Insulin LISPRO 300 UNITS/3 ML VIAL SUBQ SCH ×3 (08:57→17:21)
[2022-04-14] MEDS: Metoprolol 100 MG TABLET PO SCH ×2 (08:57→20:07)
[2022-04-14] MEDS: Apixaban 5 MG TABLET PO SCH ×2 (08:57→20:07)
[2022-04-14] MEDS: DilTIAZem CD (24hr) 120 MG CAP.ER.24H PO SCH (08:57)
[2022-04-14] MEDS: Acetaminophen 325 MG TABLET PO PRN ×2 (11:11→20:18)
[2022-04-14] MEDS: Melatonin 3 MG TABLET PO PRN (20:18)
[2022-04-15] MEDS: Acetaminophen 325 MG TABLET PO PRN ×3 (05:21→20:37)
[2022-04-15] MEDS: Metoprolol 100 MG TABLET PO SCH ×2 (09:34→20:37)
[2022-04-15] MEDS: Apixaban 5 MG TABLET PO SCH ×2 (09:34→20:37)
[2022-04-15] MEDS: DilTIAZem CD (24hr) 120 MG CAP.ER.24H PO SCH (09:34)
[2022-04-15] MEDS: Lactobacillus 1 EACH CAP.SPRINK PO SCH ×2 (09:34→20:37)
[2022-04-15] MEDS: Gabapentin 300 MG CAPSULE PO SCH ×2 (09:34→20:37)
[2022-04-15] MEDS: Insulin DETEMIR 100 UNIT/ML X5UNITS SUBQ SCH ×2 (09:35→20:37)
[2022-04-15] MEDS: Insulin LISPRO 300 UNITS/3 ML VIAL SUBQ SCH ×3 (09:35→17:59)
[2022-04-15] MEDS: levoFLOXacin 750 MG/150 ML 750 MG/150 ML BAG IVPB SCH (09:35)
[2022-04-15] MEDS: Nystatin POWDER 30 GM BOTTLE TP SCH ×2 (09:36→20:37)
[2022-04-15 10:52] LABS: Hematocrit 31.4 % (37.5-50.1); Mean Corpuscular HGB Conc 31.8 g/dL (31.6-35.5); Mean Corpuscular Hemoglobin 29.8 pg (28.0-33.3); Mean Corpuscular Volume 93.5 fL (83.0-100.0); Mean Platelet Volume 10.3 fL (9.4-12.4); Platelet Count 238 K/mcL (140-400); Red Blood Count 3.36 M/mcL (4.19-5.50); Red Cell Distribution Width 14.7 % (11.5-14.5); White Blood Count 9.6 K/mcL (4.3-11.1)
[2022-04-15 11:10] LABS: Calcium 8.6 mg/dL (8.6-10.3); Magnesium 1.8 mg/dL (1.6-2.6); Potassium 4.2 mEq/L (3.5-5.1)
[2022-04-15 11:34] LABS: Eosinophils # 0.4 K/mcL (0.0-0.6); Lymphocytes # 1.5 K/mcL (0.6-4.6); Monocytes # 0.4 K/mcL (0.0-1.3); Neutrophils # 7.1 K/mcL (1.6-8.9); Platelet Estimate Normal (Normal)
[2022-04-15] MEDS: Melatonin 3 MG TABLET PO PRN (20:37)
[2022-04-16 05:04] LABS: Hematocrit 31.6 % (37.5-50.1); Hemoglobin 10.3 g/dL (12.9-16.9); Mean Corpuscular HGB Conc 32.6 g/dL (31.6-35.5); Mean Corpuscular Hemoglobin 30.1 pg (28.0-33.3); Mean Corpuscular Volume 92.4 fL (83.0-100.0); Mean Platelet Volume 10.3 fL (9.4-12.4); Monocytes # 0.6 K/mcL (0.0-1.3); Nucleated Red Blood Cells 0.2 /100 WBC (0); Platelet Count 249 K/mcL (140-400); Red Blood Count 3.42 M/mcL (4.19-5.50); Red Cell Distribution Width 14.8 % (11.5-14.5); White Blood Count 10.1 K/mcL (4.3-11.1)
[2022-04-16 05:27] LABS: Calcium 8.8 mg/dL (8.6-10.3); Magnesium 1.9 mg/dL (1.6-2.6); Potassium 4.2 mEq/L (3.5-5.1)
[2022-04-16 05:51] LABS: Lymphocytes # 1.8 K/mcL (0.6-4.6); Neutrophils # 7.5 K/mcL (1.6-8.9); Platelet Estimate Normal (Normal)
[2022-04-16] MEDS: Gabapentin 300 MG CAPSULE PO SCH ×2 (09:08→19:50)
[2022-04-16] MEDS: Metoprolol 100 MG TABLET PO SCH ×2 (09:08→19:50)
[2022-04-16] MEDS: DilTIAZem CD (24hr) 120 MG CAP.ER.24H PO SCH (09:08)
[2022-04-16] MEDS: Apixaban 5 MG TABLET PO SCH ×2 (09:08→19:50)
[2022-04-16] MEDS: Insulin DETEMIR 100 UNIT/ML X5UNITS SUBQ SCH ×2 (09:08→20:03)
[2022-04-16] MEDS: Lactobacillus 1 EACH CAP.SPRINK PO SCH ×2 (09:08→19:50)
[2022-04-16] MEDS: Insulin LISPRO 300 UNITS/3 ML VIAL SUBQ SCH ×3 (09:09→16:52)
[2022-04-16] MEDS: levoFLOXacin 750 MG/150 ML 750 MG/150 ML BAG IVPB SCH (09:09)
[2022-04-16] MEDS: Nystatin POWDER 30 GM BOTTLE TP SCH ×2 (09:10→19:52)
[2022-04-16] MEDS: Acetaminophen 325 MG TABLET PO PRN ×2 (09:15→19:50)
[2022-04-16] MEDS: Torsemide 20 MG TABLET PO SCH (16:52)
[2022-04-16] MEDS: Simethicone 80 MG TAB.CHEW PO PRN (19:48)
[2022-04-16] MEDS: Melatonin 3 MG TABLET PO PRN (19:50)
[2022-04-17] MEDS: Acetaminophen 325 MG TABLET PO PRN ×4 (02:30→23:22)
[2022-04-17] MEDS: Torsemide 20 MG TABLET PO SCH ×2 (07:39→16:29)
[2022-04-17] MEDS: Gabapentin 300 MG CAPSULE PO SCH ×2 (07:39→21:19)
[2022-04-17] MEDS: Insulin DETEMIR 100 UNIT/ML X5UNITS SUBQ SCH ×2 (07:39→21:18)
[2022-04-17] MEDS: DilTIAZem CD (24hr) 120 MG CAP.ER.24H PO SCH (07:39)
[2022-04-17] MEDS: Apixaban 5 MG TABLET PO SCH ×2 (07:39→21:19)
[2022-04-17] MEDS: Metoprolol 100 MG TABLET PO SCH ×2 (07:39→21:20)
[2022-04-17] MEDS: Lactobacillus 1 EACH CAP.SPRINK PO SCH ×2 (07:39→21:19)
[2022-04-17] MEDS: Insulin LISPRO 300 UNITS/3 ML VIAL SUBQ SCH ×3 (07:40→16:30)
[2022-04-17] MEDS: Nystatin POWDER 30 GM BOTTLE TP SCH ×2 (09:26→21:34)
[2022-04-17] MEDS: Simethicone 80 MG TAB.CHEW PO PRN ×2 (12:05→23:23)
[2022-04-17] MEDS: Melatonin 3 MG TABLET PO PRN (21:19)
[2022-04-18 02:52] LABS: Calcium 8.9 mg/dL (8.6-10.3); Potassium 4.1 mEq/L (3.5-5.1)
[2022-04-18] MEDS: Metoprolol 100 MG TABLET PO SCH ×2 (07:51→22:35)
[2022-04-18] MEDS: Torsemide 20 MG TABLET PO SCH ×2 (07:51→16:43)
[2022-04-18] MEDS: Gabapentin 300 MG CAPSULE PO SCH ×2 (07:52→22:35)
[2022-04-18] MEDS: Nystatin POWDER 30 GM BOTTLE TP SCH ×2 (07:52→22:36)
[2022-04-18] MEDS: Lactobacillus 1 EACH CAP.SPRINK PO SCH ×2 (07:52→22:35)
[2022-04-18] MEDS: Acetaminophen 325 MG TABLET PO PRN ×2 (07:53→17:26)
[2022-04-18] MEDS: Apixaban 5 MG TABLET PO SCH ×2 (07:53→22:35)
[2022-04-18] MEDS: DilTIAZem CD (24hr) 120 MG CAP.ER.24H PO SCH (07:53)
[2022-04-18] MEDS: Insulin LISPRO 300 UNITS/3 ML VIAL SUBQ SCH ×3 (07:59→16:43)
[2022-04-18] MEDS: Insulin DETEMIR 100 UNIT/ML X5UNITS SUBQ SCH ×2 (07:59→22:36)
[2022-04-18 17:22] LABS: Bilirubin,Urine Negative (Negative); Blood,Urine Large (Negative); Clarity,Urine Clear (Clear); Color,Urine Light-Yellow (Yellow); Glucose,Urine (UA) 50 mg/dL (Normal); Hyaline Casts,Urine Few per lpf (None Seen); Ketones,Urine Negative (Negative); Leukocyte Esterase,Urine Negative (Negative); Mucus,Urine Few per lpf (None-Few); Nitrite,Urine Negative (Negative); PH,Urine 5.5 pH Units (5.0-8.0); Protein,Urine Negative (Neg-Trace); RBC,Urine 30-50 per hpf (0-3); Specific Gravity,Urine 1.013 (1.010-1.025); Urobilinogen,Urine Normal (Normal); WBC,Urine 0-3 per hpf (0-3)
[2022-04-18] MEDS: Melatonin 3 MG TABLET PO PRN (22:35)
[2022-04-19] MEDS: Acetaminophen 325 MG TABLET PO PRN ×4 (00:02→23:31)
[2022-04-19] MEDS: Metoprolol 100 MG TABLET PO SCH ×2 (07:38→22:02)
[2022-04-19] MEDS: Insulin LISPRO 300 UNITS/3 ML VIAL SUBQ SCH ×3 (07:53→17:07)
[2022-04-19] MEDS: Apixaban 5 MG TABLET PO SCH ×2 (07:54→20:46)
[2022-04-19] MEDS: DilTIAZem CD (24hr) 120 MG CAP.ER.24H PO SCH (07:54)
[2022-04-19] MEDS: Lactobacillus 1 EACH CAP.SPRINK PO SCH ×2 (07:54→20:45)
[2022-04-19] MEDS: Torsemide 20 MG TABLET PO SCH ×2 (07:54→17:08)
[2022-04-19] MEDS: Gabapentin 300 MG CAPSULE PO SCH ×2 (07:54→20:45)
[2022-04-19] MEDS: Nystatin POWDER 30 GM BOTTLE TP SCH ×2 (07:55→22:02)
[2022-04-19] MEDS: Insulin DETEMIR 100 UNIT/ML X5UNITS SUBQ SCH ×2 (07:57→22:02)
[2022-04-19] MEDS: Melatonin 3 MG TABLET PO PRN (20:46)
[2022-04-20] MEDS: Simethicone 80 MG TAB.CHEW PO PRN (00:46)
[2022-04-20] MEDS: Acetaminophen 325 MG TABLET PO PRN ×3 (05:37→21:59)
[2022-04-20] MEDS: DilTIAZem CD (24hr) 120 MG CAP.ER.24H PO SCH (08:58)
[2022-04-20] MEDS: Gabapentin 300 MG CAPSULE PO SCH ×2 (08:59→21:59)
[2022-04-20] MEDS: Metoprolol 100 MG TABLET PO SCH ×2 (09:02→22:00)
[2022-04-20] MEDS: Lactobacillus 1 EACH CAP.SPRINK PO SCH ×2 (09:02→22:00)
[2022-04-20] MEDS: Torsemide 20 MG TABLET PO SCH ×2 (09:11→16:45)
[2022-04-20] MEDS: Apixaban 5 MG TABLET PO SCH ×2 (09:11→22:00)
[2022-04-20] MEDS: Insulin LISPRO 300 UNITS/3 ML VIAL SUBQ SCH ×3 (09:37→16:45)
[2022-04-20] MEDS: Insulin DETEMIR 100 UNIT/ML X5UNITS SUBQ SCH ×2 (09:39→22:00)
[2022-04-20] MEDS: Nystatin POWDER 30 GM BOTTLE TP SCH ×2 (09:55→22:00)
[2022-04-20] MEDS: Ondansetron ODT 4 MG TAB.RAPDIS SL PRN (14:38)
[2022-04-20] MEDS: Melatonin 3 MG TABLET PO PRN (22:00)
[2022-04-21] MEDS: Nystatin POWDER 30 GM BOTTLE TP SCH (09:23)
[2022-04-21] MEDS: Apixaban 5 MG TABLET PO SCH (09:23)
[2022-04-21] MEDS: Torsemide 20 MG TABLET PO SCH (09:24)
[2022-04-21] MEDS: DilTIAZem CD (24hr) 120 MG CAP.ER.24H PO SCH (09:24)
[2022-04-21] MEDS: Lactobacillus 1 EACH CAP.SPRINK PO SCH (09:24)
[2022-04-21] MEDS: Gabapentin 300 MG CAPSULE PO SCH (09:24)
[2022-04-21] MEDS: Metoprolol 100 MG TABLET PO SCH (09:24)
[2022-04-21] MEDS: Insulin LISPRO 300 UNITS/3 ML VIAL SUBQ SCH (09:25)
[2022-04-21] MEDS: Insulin DETEMIR 100 UNIT/ML X5UNITS SUBQ SCH (09:30)
[2022-04-21 11:30] VITALS: BP 130/77; PULSE 77; TEMP 98.1; O2SAT 98
[2022-04-21] MEDS: Simethicone 80 MG TAB.CHEW PO PRN (13:58)
== END 2022-04-21 14:50 | DRG 871 ==
LOC: 3NENU 22:07 → EMEROOARM 22:07 → SUATTDRO 04-06 03:16 → 2ANU 04-06 03:23 → SUATTDRO 04-07 11:54
PROVIDERS: ADMIT Family Medicine; ATTEND Internal Medicine